=== PATIENT | female | born 1950 | race Caucasian/White ===

== ENCOUNTER 2020-04-30 09:06 | Outpatient (REF) | payer MEDICARE, OTHER, SELFPAY ==
[2020-04-30 10:51] LABS: Free T4 (Free Thyroxine) 1.36 ng/dL (0.71-1.85); Thyroid Stimulating Hormone 0.91 uIU/mL (0.32-4.0)
== END 2020-04-30 09:07 | disposition home or self-care (01) ==
LOC: HO.LAB 09:06
PROVIDERS: PCP Internal Medicine; Visit Provider Internal Medicine
DX: E03.9 Hypothyroidism, unspecified (principal); E04.1 Nontoxic single thyroid nodule
CPT/HCPCS: 84439; 84443

== ENCOUNTER 2020-08-22 08:51 | Outpatient (REF) | payer MEDICARE, OTHER, SELFPAY ==
[2020-08-22 09:53] LABS: MANUAL DIFF FLAG NO
[2020-08-22 10:01] LABS: Basophils Absolute Auto 0.1 X10*3/uL (0.0-0.2); Eosinophils Absolute Auto 0.2 X10*3/uL (0.0-0.4); Eosinophils Percent Auto 2.5 % (0-4); Hematocrit 42.3 % (37-47); Hemoglobin 14.1 g/dl (12.0-16.0); Imm Gran Abs Auto 0.02 X10*3/uL (0.00-0.03); Imm Gran Pct Auto 0.3 % (0.0-0.4); Lymphocytes Percent Auto 28.6 % (20-40); Mean Corpuscular HGB Conc 33.3 g/dl (31.0-35.0); Mean Corpuscular Hemoglobin 30.7 pg (27.0-33.0); Mean Corpuscular Volume 92.2 fL (80-98); Mean Platelet Volume 10.9 fL (9.4-12.3); Monocytes Absolute Auto 0.4 X10*3/uL (0.1-1.2); Monocytes Percent Auto 6.5 % (2-11); Neutrophils Absolute Auto 4.2 X10*3/uL (2.0-8.3); Neutrophils Percent Auto 61.1 % (45-73); Platelet Count 272 X10*3/uL (160-400); Red Blood Count 4.59 X10*6/uL (4.20-5.50); Red Cell Distribution Width 12.8 % (11.0-16.0); White Blood Count 6.8 X10*3/uL (4.8-10.8)
[2020-08-22 10:34] LABS: Alanine Aminotransferase 16 U/L (0-31); Albumin Level 4.5 g/dL (3.5-5.0); Alkaline Phosphatase 69 U/L (39-117); Anion Gap 13 (12-20); Aspartate Amino Transferase 17 U/L (5-31); Bilirubin Total 0.5 mg/dL (0.0-1.0); Blood Urea Nitrogen 18 mg/dL (9-16); Calcium 9.4 mg/dL (8.4-10.2); Carbon Dioxide 28 mmol/L (22-29); Chloride 107 mmol/L (96-108); Cholesterol 226 mg/dL; Estimated Glomerular Filt Rate 59; Glucose Fasting 116 mg/dL (60-99); HDL Cholesterol 60 mg/dL; LDL Cholesterol Calculated 141 mg/dl; Potassium 4.5 mmol/L (3.3-5.1); Sodium 143 mmol/L (135-145); Total Protein 7.3 g/dL (6.5-8.0); Triglycerides 127 mg/dL
[2020-08-22 10:46] LABS: Free T4 (Free Thyroxine) 1.06 ng/dL (0.71-1.85)
[2020-08-22 10:55] LABS: Estimated Average Glucose 114 mg/dL; Hemoglobin A1c % 5.6 %
== END 2020-08-22 08:52 | disposition home or self-care (01) ==
LOC: HO.LAB 08:51
PROVIDERS: PCP Internal Medicine; Visit Provider Internal Medicine
DX: R73.01 Impaired fasting glucose (principal); E03.9 Hypothyroidism, unspecified; E78.00 Pure hypercholesterolemia, unspecified; M48.061 Spinal stenosis, lumbar region without neurogenic claudication
CPT/HCPCS: 36415; 80053; 80061; 83036; 84439; 84443; 85025

== ENCOUNTER 2020-09-06 17:14 | Outpatient (REF) | payer MEDICARE, OTHER, SELFPAY ==
[2020-09-07 08:21] LABS: Lyme Abs Screen <0.90 index
== END 2020-09-06 17:15 | disposition home or self-care (01) ==
LOC: HO.LAB 17:14
PROVIDERS: PCP Internal Medicine; Visit Provider Internal Medicine
DX: R73.01 Impaired fasting glucose (principal); W57.XXXA Bitten or stung by nonvenomous insect and other nonvenomous arthropods, initial encounter
CPT/HCPCS: 36415; 86617; 86618

== ENCOUNTER 2021-02-27 07:52 | Outpatient (REF) | payer MEDICARE, OTHER, SELFPAY ==
--- NOTE | ~2021-02-27 | US_ITS ---
EXAMINATION: US THYROID CLINICAL INFORMATION: Nontoxic single thyroid nodule. COMPARISON: Ultrasound soft tissue head/neck thyroid dated 02/07/2020 and 12/22/2018. TECHNIQUE: Linear transducer grayscale and color Doppler examination with attention to the region of the thyroid. FINDINGS: SIZE: Measurements of the thyroid lobes and nodules are given in sagittal, anteroposterior and transverse dimensions respectively. Right Thyroid Lobe: 3.9 x 1.3 x 1.2 cm, volume 3.3 mL. Previously 4.3 x 1.4 x 1.3 cm, volume 4.1 mL. Parenchyma: The gland echotexture is heterogeneous. Thyroid vascularity is increased. Left Thyroid Lobe: 3.1 x 0.8 x 0.9 cm, volume 1.1 mL. Previously 3.9 x 1.1 x 1.1 cm, volume 2.5 mL. Parenchyma: The gland echotexture is heterogeneous. Thyroid vascularity is increased. Isthmus: 0.25 cm in maximum AP dimension. Previously 0.33 cm. Estimated total number of nodules greater than or equal to 1 cm: 1. International Accountant nodules are described as follows: 1. Location: Right superior/mid. Size: 1.3 x 0.8 x 1.2 cm, volume 0.61 mL. Previously: 1.1 x 0.6 x 0.9 cm, volume 0.31 mL. Nodule characteristics: Composition: Solid/almost completely solid (2). Echogenicity: Isoechoic (1). Shape: Not taller than wide (0). Margins: Smooth (0). Echogenic Foci: None (0). ACR TI-RADS total points: 3 ACR TI-RADS category: 3 Significant change in size (>/= 20% in 2 dimensions and minimal increase of 2 mm or 50% or greater increase in volume): Yes Change in features: No Change in ACR TI-RADS risk category: No NODES: No lymphadenopathy is seen in the tissue surrounding the thyroid gland. US/US thyroid IMPRESSION: Small heterogeneous hypervascular thyroid gland. Interval increase in the solitary right thyroid nodule. Fine-needle aspiration and ultrasound follow-up recommended.. ACR TI-RADS RECOMMENDATION REFERENCE: Ultrasound-guided fine-needle aspiration, followup ultrasound, no further follow up. * TR1 (0 point) and TR 2 (2 points): No FNA or follow up * TR3 (3 points): FNA if more than or equal to 2.5 cm in maximum dimension, followup ultrasound in 1, 3 and 5 years if 1.5 to 2.4 cm in maximum dimension. * TR4 (4-6 points): FNA if more than or equal to 1.5 cm in maximum dimension, followup ultrasound in 1, 2, 3 and 5 years if 1 to 1.4 cm in maximum dimension. * TR5 (more than or equal to 7 points): FNA if more than or equal to 1 cm in maximum dimension, followup ultrasound every year for 5 years if 0.5 to 0.9 cm in maximum dimension. * TR3, TR4 or TR5 nodules that are below the size threshold for follow up receive no follow up.
== END 2021-02-27 07:53 | disposition home or self-care (01) ==
LOC: HO.US 07:52
PROVIDERS: PCP Internal Medicine; Visit Provider Internal Medicine
DX: E04.1 Nontoxic single thyroid nodule (principal)
CPT/HCPCS: 76536

== ENCOUNTER 2021-04-29 08:17 | Outpatient (REF) | payer MEDICARE, OTHER, SELFPAY ==
[2021-04-29 08:38] LABS: MANUAL DIFF FLAG NO
[2021-04-29 08:59] LABS: Basophils Absolute Auto 0.1 X10*3/uL (0.0-0.2); Eosinophils Absolute Auto 0.2 X10*3/uL (0.0-0.4); Hematocrit 41.2 % (37.0-47.0); Hemoglobin 13.6 g/dl (12.0-16.0); Imm Gran Abs Auto 0.01 X10*3/uL (0.00-0.03); Imm Gran Pct Auto 0.2 % (0.0-0.4); Lymphocytes Absolute Auto 1.9 X10*3/uL (1.2-4.9); Lymphocytes Percent Auto 32.5 % (20-40); Mean Corpuscular Hemoglobin 29.7 pg (27.0-33.0); Mean Platelet Volume 10.9 fL (9.4-12.3); Monocytes Absolute Auto 0.5 X10*3/uL (0.1-1.2); Monocytes Percent Auto 8.1 % (2-11); Neutrophils Absolute Auto 3.2 x10*3/uL (2.0-8.3); Neutrophils Percent Auto 54.2 % (45-73); Platelet Count 246 X10*3/uL (160-400); Red Blood Count 4.58 X10*6/uL (4.20-5.50); Red Cell Distribution Width 12.6 % (11.0-16.0); White Blood Count 5.8 X10*3/uL (4.8-10.8)
[2021-04-29 09:11] LABS: Estimated Average Glucose 123 mg/dL; Hemoglobin A1c % 5.9 %
[2021-04-29 09:25] LABS: Alanine Aminotransferase 17 U/L (0-31); Albumin Level 4.3 g/dL (3.5-5.0); Alkaline Phosphatase 69 U/L (39-117); Anion Gap 12 (12-20); Aspartate Amino Transferase 18 U/L (5-31); Bilirubin Total 0.6 mg/dL (0.0-1.0); Blood Urea Nitrogen 11 mg/dL (9-16); Calcium 9.9 mg/dL (8.4-10.2); Carbon Dioxide 28 mmol/L (22-29); Chloride 106 mmol/L (96-108); Cholesterol 243 mg/dL; Estimated Glomerular Filt Rate 55; Glucose Fasting 123 mg/dL (60-99); HDL Cholesterol 61 mg/dL; LDL Cholesterol Calculated 149 mg/dl; Potassium 4.7 mmol/L (3.3-5.1); Sodium 141 mmol/L (135-145); Total Protein 6.8 g/dL (6.5-8.0); Triglycerides 165 mg/dL
[2021-04-29 09:28] LABS: Appearance Urine CLEAR; Color Urine STRAW; Glucose Urine UA NEG (NEG); Leukocyte Esterase Urine NEG (NEG); Nitrite Urine NEG (NEG); Specific Gravity - Urine <= 1.005 (1.005-1.025); Urine Blood NEG (NEG); Urine Ketones NEG (NEG); Urine Protein NEG (NEG-TRACE)
[2021-04-29 09:48] LABS: Free T4 (Free Thyroxine) 1.17 ng/dL (0.71-1.85); Thyroid Stimulating Hormone 0.63 uIU/mL (0.32-4.0)
== END 2021-04-29 08:18 | disposition home or self-care (01) ==
LOC: HO.LAB 08:17
PROVIDERS: PCP Internal Medicine; Visit Provider Internal Medicine
DX: E78.00 Pure hypercholesterolemia, unspecified (principal); R73.01 Impaired fasting glucose; E03.9 Hypothyroidism, unspecified; I10 Essential (primary) hypertension
CPT/HCPCS: 36415; 80053; 80061; 81003; 83036; 84439; 84443; 85025

== ENCOUNTER 2021-05-30 12:21 | Outpatient (REF) | payer MEDICARE, OTHER, SELFPAY ==
[2021-05-30 13:58] LABS: Vitamin D 25-OH Total 20.7 ng/mL (>30)
[2021-05-30 14:19] LABS: Folate 6.4 ng/mL (> or = 4.0); Vitamin B12 404 pg/mL (200-900)
[2021-06-04 14:52] LABS: Vitamin B1 10 nmol/L (8-30)
[2021-06-05 00:20] LABS: Vitamin A 72 mcg/dL (38-98)
== END 2021-05-30 12:22 | disposition home or self-care (01) ==
LOC: HO.LAB 12:21
PROVIDERS: PCP Internal Medicine; Visit Provider Internal Medicine
DX: E55.9 Vitamin D deficiency, unspecified (principal); E66.9 Obesity, unspecified; E53.8 Deficiency of other specified B group vitamins; H53.9 Unspecified visual disturbance
CPT/HCPCS: 36415; 82306; 82607; 82746; 84425; 84590

== ENCOUNTER 2021-07-30 08:47 | Outpatient (REF) | payer MEDICARE, OTHER, SELFPAY ==
[2021-07-30 10:25] LABS: Free T4 (Free Thyroxine) 1.46 ng/dL (0.71-1.85); Thyroid Stimulating Hormone 0.64 uIU/mL (0.32-4.0); Vitamin D 25-OH Total 36.7 ng/mL (>30)
== END 2021-07-30 08:48 | disposition home or self-care (01) ==
LOC: HO.LAB 08:47
PROVIDERS: PCP Internal Medicine; Visit Provider Internal Medicine
DX: E03.9 Hypothyroidism, unspecified (principal); E55.9 Vitamin D deficiency, unspecified
CPT/HCPCS: 36415; 82306; 84439; 84443

== ENCOUNTER 2021-10-22 10:14 | Outpatient (REF) | payer MEDICARE, OTHER, SELFPAY ==
[2021-10-22 12:25] LABS: Free T4 (Free Thyroxine) 1.34 ng/dL (0.71-1.85); Thyroid Stimulating Hormone 0.11 uIU/mL (0.32-4.0)
== END 2021-10-22 10:15 | disposition home or self-care (01) ==
LOC: HO.LAB 10:14
PROVIDERS: PCP Internal Medicine; Visit Provider Internal Medicine
DX: E03.9 Hypothyroidism, unspecified (principal); E04.1 Nontoxic single thyroid nodule; Z90.09 Acquired absence of other part of head and neck
CPT/HCPCS: 36415; 84439; 84443

== ENCOUNTER 2021-11-06 08:27 | Outpatient (REF) | payer MEDICARE, OTHER, SELFPAY ==
[2021-11-06 08:38] LABS: MANUAL DIFF FLAG NO
[2021-11-06 09:17] LABS: Basophils Absolute Auto 0.1 X10*3/uL (0.0-0.2); Basophils Percent Auto 0.8 % (0-2); Eosinophils Absolute Auto 0.2 X10*3/uL (0.0-0.4); Eosinophils Percent Auto 2.3 % (0-4); Hematocrit 43.4 % (37.0-47.0); Hemoglobin 14.2 g/dl (12.0-16.0); Imm Gran Abs Auto 0.03 X10*3/uL (0.00-0.03); Imm Gran Pct Auto 0.4 % (0.0-0.4); Lymphocytes Absolute Auto 2.1 X10*3/uL (1.2-4.9); Lymphocytes Percent Auto 28.7 % (20-40); Mean Corpuscular HGB Conc 32.7 g/dl (31.0-35.0); Mean Corpuscular Hemoglobin 29.6 pg (27.0-33.0); Mean Corpuscular Volume 90.6 fL (80.0-98.0); Mean Platelet Volume 11.2 fL (9.4-12.3); Monocytes Absolute Auto 0.6 X10*3/uL (0.1-1.2); Monocytes Percent Auto 8.4 % (2-11); Neutrophils Absolute Auto 4.3 x10*3/uL (2.0-8.3); Neutrophils Percent Auto 59.4 % (45-73); Platelet Count 261 X10*3/uL (160-400); Red Blood Count 4.79 X10*6/uL (4.20-5.50); Red Cell Distribution Width 12.5 % (11.0-16.0); White Blood Count 7.2 X10*3/uL (4.8-10.8)
[2021-11-06 09:24] LABS: Estimated Average Glucose 114 mg/dL; Hemoglobin A1c % 5.6 %
[2021-11-06 09:40] LABS: Alanine Aminotransferase 13 U/L (0-31); Albumin Level 4.6 g/dL (3.5-5.0); Alkaline Phosphatase 77 U/L (39-117); Anion Gap 11 (12-20); Aspartate Amino Transferase 16 U/L (5-31); Bilirubin Total 0.5 mg/dL (0.0-1.0); Blood Urea Nitrogen 20 mg/dL (9-16); Calcium 9.7 mg/dL (8.4-10.2); Carbon Dioxide 28 mmol/L (22-29); Chloride 106 mmol/L (96-108); Cholesterol 217 mg/dL; Estimated Glomerular Filt Rate 53; Glucose Fasting 119 mg/dL (60-99); HDL Cholesterol 54 mg/dL; LDL Cholesterol Calculated 135 mg/dl; Potassium 4.4 mmol/L (3.3-5.1); Sodium 141 mmol/L (135-145); Total Protein 7.1 g/dL (6.5-8.0); Triglycerides 140 mg/dL
[2021-11-06 10:03] LABS: Free T4 (Free Thyroxine) 1.49 ng/dL (0.71-1.85); Vitamin D 25-OH Total 51.8 ng/mL (>30)
[2021-11-06 10:21] LABS: Microalbumin Urine < 5.0 mg/L
[2021-11-06 10:24] LABS: Appearance Urine CLEAR; Color Urine YELLOW; Glucose Urine UA NEG (NEG); Leukocyte Esterase Urine NEG (NEG); Nitrite Urine NEG (NEG); Urine Blood NEG (NEG); Urine Ketones NEG (NEG); Urine Protein NEG (NEG-TRACE)
[2021-11-06 11:06] LABS: Folate > 20.0 ng/mL (> or = 4.0); Vitamin B12 518 pg/mL (200-900)
== END 2021-11-06 08:28 | disposition home or self-care (01) ==
LOC: HO.LAB 08:27
PROVIDERS: PCP Internal Medicine; Visit Provider Internal Medicine
DX: E11.9 Type 2 diabetes mellitus without complications (principal); E53.8 Deficiency of other specified B group vitamins; I10 Essential (primary) hypertension; E78.00 Pure hypercholesterolemia, unspecified; E55.9 Vitamin D deficiency, unspecified; E03.9 Hypothyroidism, unspecified
CPT/HCPCS: 36415; 80053; 80061; 81003; 82043; 82306; 82607; 82746; 83036; 84439; 85025

== ENCOUNTER 2022-01-13 08:14 | Outpatient (REF) | payer MEDICARE, SELFPAY ==
[2022-01-13 09:39] LABS: MANUAL DIFF FLAG NO
[2022-01-13 10:52] LABS: Basophils Absolute Auto 0.1 X10*3/uL (0.0-0.2); Basophils Percent Auto 0.9 % (0-2); Eosinophils Absolute Auto 0.2 X10*3/uL (0.0-0.4); Eosinophils Percent Auto 2.2 % (0-4); Hematocrit 43.6 % (37.0-47.0); Hemoglobin 14.5 g/dl (12.0-16.0); Imm Gran Abs Auto 0.02 X10*3/uL (0.00-0.03); Imm Gran Pct Auto 0.3 % (0.0-0.4); Lymphocytes Absolute Auto 1.9 X10*3/uL (1.2-4.9); Lymphocytes Percent Auto 24.9 % (20-40); Mean Corpuscular HGB Conc 33.3 g/dl (31.0-35.0); Mean Corpuscular Hemoglobin 29.7 pg (27.0-33.0); Mean Corpuscular Volume 89.3 fL (80.0-98.0); Mean Platelet Volume 11.3 fL (9.4-12.3); Monocytes Absolute Auto 0.6 X10*3/uL (0.1-1.2); Monocytes Percent Auto 7.3 % (2-11); Neutrophils Percent Auto 64.4 % (45-73); Platelet Count 256 X10*3/uL (160-400); Red Blood Count 4.88 X10*6/uL (4.20-5.50); Red Cell Distribution Width 12.4 % (11.0-16.0); White Blood Count 7.8 X10*3/uL (4.8-10.8)
[2022-01-13 11:07] LABS: Appearance Urine Clear; Color Urine Yellow; Glucose Urine UA Negative (Negative); Leukocyte Esterase Urine Negative (Negative); Nitrite Urine Negative (Negative); Specific Gravity - Urine 1.015 (1.005-1.025); Urine Blood Negative (Negative); Urine Ketones Negative (Negative); Urine Protein Negative (Neg-Trace)
[2022-01-13 11:25] LABS: Alanine Aminotransferase 14 U/L (0-31); Albumin Level 4.5 g/dL (3.5-5.0); Alkaline Phosphatase 71 U/L (39-117); Anion Gap 15 (12-20); Aspartate Amino Transferase 15 U/L (5-31); Bilirubin Total 0.5 mg/dL (0.0-1.0); Blood Urea Nitrogen 18 mg/dL (9-16); C Reactive Protein 0.35 mg/dL (< or = 0.50); Calcium 9.5 mg/dL (8.4-10.2); Carbon Dioxide 29 mmol/L (22-29); Chloride 107 mmol/L (96-108); Cholesterol 220 mg/dL; Estimated Glomerular Filt Rate 49; Glucose Random 111 mg/dL (60-115); HDL Cholesterol 63 mg/dL; LDL Cholesterol Calculated 128 mg/dl; Potassium 4.7 mmol/L (3.3-5.1); Sodium 146 mmol/L (135-145); Total Protein 7.3 g/dL (6.5-8.0); Triglycerides 148 mg/dL
[2022-01-13 11:36] LABS: Free T4 (Free Thyroxine) 1.39 ng/dL (0.71-1.85); Thyroid Stimulating Hormone 0.06 uIU/mL (0.32-4.0)
[2022-01-13 11:41] LABS: Folate 18.5 ng/mL (> or = 4.0); Vitamin B12 453 pg/mL (200-900)
[2022-01-13 11:46] LABS: Erythrocyte Sedimentation Rate 2 MM/HR (0-20)
== END 2022-01-13 08:15 | disposition home or self-care (01) ==
LOC: HO.LAB 08:14
PROVIDERS: PCP Internal Medicine; Visit Provider Internal Medicine
DX: R44.8 Other symptoms and signs involving general sensations and perceptions (principal); E03.9 Hypothyroidism, unspecified; I10 Essential (primary) hypertension; E78.00 Pure hypercholesterolemia, unspecified
CPT/HCPCS: 36415; 80053; 80061; 81003; 82306; 82607; 82746; 84439; 84443; 85025; 85652; 86140

== ENCOUNTER 2022-01-29 08:02 | Outpatient (REF) | payer MEDICARE, SELFPAY ==
--- NOTE | ~2022-01-29 | MR_ITS ---
EXAMINATION: MR BRAIN WITHOUT CONTRAST CLINICAL INFORMATION: Other symptoms and signs involving general sensation and perceptions. COMPARISON: Brain MRI 09/22/2011. TECHNIQUE: Multiplanar, multisequence imaging of the brain was performed without intravenous contrast. FINDINGS: There is no acute infarction, hemorrhage, mass, or extra-axial fluid collection. Mild scattered foci of T2/FLAIR hyperintensity are seen within the cerebral white matter, similar compared with 09/22/2011. The ventricles are normal in size without hydrocephalus. The major arterial flow voids are preserved at the skull base. The orbital contents appear normal. The extracranial structures are unremarkable. MR/MR head/brain wo con IMPRESSION: No acute intracranial abnormality. No mass. Nonspecific foci of T2/FLAIR hyperintensity are seen within the cerebral white matter, similar compared with 2011
== END 2022-01-29 08:03 | disposition home or self-care (01) ==
LOC: HO.MRI 08:02
PROVIDERS: Visit Provider Internal Medicine
DX: R44.8 Other symptoms and signs involving general sensations and perceptions (principal); R20.0 Anesthesia of skin; R20.2 Paresthesia of skin
CPT/HCPCS: 70551

== ENCOUNTER 2022-02-25 | Outpatient (REF) | payer MEDICARE, SELFPAY ==
[2022-02-25 09:21] LABS: MANUAL DIFF FLAG NO
[2022-02-25 10:18] LABS: Basophils Absolute Auto 0.1 X10*3/uL (0.0-0.2); Basophils Percent Auto 0.9 % (0-2); Eosinophils Absolute Auto 0.2 X10*3/uL (0.0-0.4); Eosinophils Percent Auto 3.1 % (0-4); Hematocrit 40.4 % (37.0-47.0); Hemoglobin 13.6 g/dl (12.0-16.0); Imm Gran Abs Auto 0.01 X10*3/uL (0.00-0.03); Imm Gran Pct Auto 0.1 % (0.0-0.4); Lymphocytes Absolute Auto 1.9 X10*3/uL (1.2-4.9); Lymphocytes Percent Auto 28.5 % (20-40); Mean Corpuscular HGB Conc 33.7 g/dl (31.0-35.0); Mean Corpuscular Hemoglobin 29.4 pg (27.0-33.0); Mean Corpuscular Volume 87.3 fL (80.0-98.0); Mean Platelet Volume 10.8 fL (9.4-12.3); Monocytes Absolute Auto 0.4 X10*3/uL (0.1-1.2); Monocytes Percent Auto 6.3 % (2-11); Neutrophils Absolute Auto 4.2 x10*3/uL (2.0-8.3); Neutrophils Percent Auto 61.1 % (45-73); Platelet Count 256 X10*3/uL (160-400); Red Blood Count 4.63 X10*6/uL (4.20-5.50); Red Cell Distribution Width 12.9 % (11.0-16.0); White Blood Count 6.8 X10*3/uL (4.8-10.8)
[2022-02-25 10:29] LABS: Appearance Urine Clear; Color Urine Yellow; Glucose Urine UA Negative (Negative); Leukocyte Esterase Urine Negative (Negative); Nitrite Urine Negative (Negative); PH 5.5 (5.0-9.0); Urine Blood Negative (Negative); Urine Ketones Negative (Negative); Urine Protein Negative (Neg-Trace)
[2022-02-25 10:55] LABS: Alanine Aminotransferase 15 U/L (0-31); Albumin Level 4.4 g/dL (3.5-5.0); Alkaline Phosphatase 71 U/L (39-117); Anion Gap 15 (12-20); Aspartate Amino Transferase 17 U/L (5-31); Bilirubin Total 0.5 mg/dL (0.0-1.0); Blood Urea Nitrogen 18 mg/dL (9-16); Calcium 9.5 mg/dL (8.4-10.2); Carbon Dioxide 25 mmol/L (22-29); Chloride 105 mmol/L (96-108); Cholesterol 223 mg/dL; Estimated Glomerular Filt Rate 54; Glucose Fasting 116 mg/dL (60-99); HDL Cholesterol 63 mg/dL; LDL Cholesterol Calculated 135 mg/dl; Potassium 4.3 mmol/L (3.3-5.1); Sodium 141 mmol/L (135-145); Total Protein 7.1 g/dL (6.5-8.0); Triglycerides 126 mg/dL
[2022-02-25 11:23] LABS: Thyroid Stimulating Hormone 0.04 uIU/mL (0.32-4.0); Vitamin D 25-OH Total 53.5 ng/mL (>30)
== END 2022-02-25 00:01 | disposition home or self-care (01) ==
LOC: HO.LAB
PROVIDERS: PCP Internal Medicine; Visit Provider Internal Medicine
DX: E03.9 Hypothyroidism, unspecified (principal); E04.1 Nontoxic single thyroid nodule; I10 Essential (primary) hypertension; E78.00 Pure hypercholesterolemia, unspecified; E55.9 Vitamin D deficiency, unspecified; Z90.09 Acquired absence of other part of head and neck
CPT/HCPCS: 36415; 80053; 80061; 81003; 82306; 84443; 85025

== ENCOUNTER 2022-06-25 07:24 | Outpatient (REF) | payer MEDICARE, SELFPAY ==
[2022-06-25 07:34] LABS: MANUAL DIFF FLAG NO
[2022-06-25 07:47] LABS: Basophils Absolute Auto 0.1 X10*3/uL (0.0-0.2); Basophils Percent Auto 0.8 % (0-2); Eosinophils Absolute Auto 0.2 X10*3/uL (0.0-0.4); Eosinophils Percent Auto 2.8 % (0-4); Hematocrit 41.8 % (37.0-47.0); Hemoglobin 13.8 g/dl (12.0-16.0); Imm Gran Abs Auto 0.02 X10*3/uL (0.00-0.03); Imm Gran Pct Auto 0.3 % (0.0-0.4); Lymphocytes Absolute Auto 2.7 X10*3/uL (1.2-4.9); Lymphocytes Percent Auto 36.1 % (20-40); Mean Corpuscular Hemoglobin 29.7 pg (27.0-33.0); Mean Corpuscular Volume 90.1 fL (80.0-98.0); Mean Platelet Volume 10.4 fL (9.4-12.3); Monocytes Absolute Auto 0.6 X10*3/uL (0.1-1.2); Neutrophils Absolute Auto 3.9 x10*3/uL (2.0-8.3); Platelet Count 247 X10*3/uL (160-400); Red Blood Count 4.64 X10*6/uL (4.20-5.50); White Blood Count 7.4 X10*3/uL (4.8-10.8)
[2022-06-25 07:57] LABS: Estimated Average Glucose 126 mg/dL
[2022-06-25 08:18] LABS: Alanine Aminotransferase 19 U/L (0-31); Albumin Level 4.1 g/dL (3.5-5.0); Alkaline Phosphatase 70 U/L (39-117); Anion Gap 13 (12-20); Aspartate Amino Transferase 16 U/L (5-31); Bilirubin Total 0.6 mg/dL (0.0-1.0); Blood Urea Nitrogen 16 mg/dL (9-16); Calcium 9.4 mg/dL (8.4-10.2); Carbon Dioxide 27 mmol/L (22-29); Chloride 107 mmol/L (96-108); Cholesterol 223 mg/dL; Estimated Glomerular Filt Rate 54; Glucose Fasting 126 mg/dL (60-99); HDL Cholesterol 51 mg/dL; LDL Cholesterol Calculated 152 mg/dl; Potassium 4.8 mmol/L (3.3-5.1); Sodium 142 mmol/L (135-145); Total Protein 6.5 g/dL (6.5-8.0); Triglycerides 102 mg/dL
[2022-06-25 08:25] LABS: Appearance Urine Clear; Color Urine Yellow; Glucose Urine UA Negative (Negative); Leukocyte Esterase Urine Negative (Negative); Nitrite Urine Negative (Negative); Specific Gravity - Urine 1.025 (1.005-1.025); Urine Blood Negative (Negative); Urine Ketones Negative (Negative); Urine Protein Negative (Neg-Trace)
[2022-06-25 08:35] LABS: Free T4 (Free Thyroxine) 1.24 ng/dL (0.71-1.85); Thyroid Stimulating Hormone 0.07 uIU/mL (0.32-4.0)
== END 2022-06-25 07:25 | disposition home or self-care (01) ==
LOC: HO.LAB 07:24
PROVIDERS: PCP Internal Medicine; Visit Provider Internal Medicine
DX: E03.9 Hypothyroidism, unspecified (principal); E78.00 Pure hypercholesterolemia, unspecified; R30.0 Dysuria; R73.01 Impaired fasting glucose; E55.9 Vitamin D deficiency, unspecified; I10 Essential (primary) hypertension
CPT/HCPCS: 36415; 80053; 80061; 81003; 82306; 83036; 84439; 84443; 85025

== ENCOUNTER 2022-09-25 09:11 | Outpatient (REF) | payer MEDICARE, SELFPAY ==
[2022-09-25 09:21] LABS: MANUAL DIFF FLAG NO
[2022-09-25 09:56] LABS: Basophils Absolute Auto 0.1 X10*3/uL (0.0-0.2); Basophils Percent Auto 0.9 % (0-2); Eosinophils Absolute Auto 0.2 X10*3/uL (0.0-0.4); Eosinophils Percent Auto 2.9 % (0-4); Hematocrit 42.5 % (37.0-47.0); Imm Gran Abs Auto 0.02 X10*3/uL (0.00-0.03); Imm Gran Pct Auto 0.3 % (0.0-0.4); Lymphocytes Absolute Auto 2.1 X10*3/uL (1.2-4.9); Lymphocytes Percent Auto 31.2 % (20-40); Mean Corpuscular HGB Conc 32.9 g/dl (31.0-35.0); Mean Corpuscular Hemoglobin 29.3 pg (27.0-33.0); Mean Corpuscular Volume 88.9 fL (80.0-98.0); Monocytes Absolute Auto 0.4 X10*3/uL (0.1-1.2); Monocytes Percent Auto 6.7 % (2-11); Neutrophils Absolute Auto 3.8 x10*3/uL (2.0-8.3); Platelet Count 255 X10*3/uL (160-400); Red Blood Count 4.78 X10*6/uL (4.20-5.50); Red Cell Distribution Width 12.4 % (11.0-16.0); White Blood Count 6.6 X10*3/uL (4.8-10.8)
[2022-09-25 10:05] LABS: Estimated Average Glucose 123 mg/dL; Hemoglobin A1c % 5.9 %
[2022-09-25 10:21] LABS: Appearance Urine Clear; Color Urine Yellow; Glucose Urine UA Negative (Negative); Leukocyte Esterase Urine Negative (Negative); Nitrite Urine Negative (Negative); PH 6.5 (5.0-9.0); Specific Gravity - Urine 1.015 (1.005-1.025); Urine Blood Negative (Negative); Urine Ketones Negative (Negative); Urine Protein Negative (Neg-Trace)
[2022-09-25 10:25] LABS: Alanine Aminotransferase 16 U/L (0-31); Albumin Level 4.3 g/dL (3.5-5.0); Alkaline Phosphatase 75 U/L (39-117); Anion Gap 13 (12-20); Aspartate Amino Transferase 17 U/L (5-31); Bilirubin Total 0.7 mg/dL (0.0-1.0); Blood Urea Nitrogen 14 mg/dL (9-16); Calcium 9.5 mg/dL (8.4-10.2); Carbon Dioxide 27 mmol/L (22-29); Chloride 105 mmol/L (96-108); Cholesterol 224 mg/dL; Estimated Glomerular Filt Rate 55; Glucose Fasting 129 mg/dL (60-99); HDL Cholesterol 57 mg/dL; LDL Cholesterol Calculated 148 mg/dl; Potassium 4.6 mmol/L (3.3-5.1); Sodium 140 mmol/L (135-145); Total Protein 6.6 g/dL (6.5-8.0); Triglycerides 97 mg/dL
[2022-09-25 10:29] LABS: Creatinine Urine 81.06 mg/dL; Microalbumin Urine < 5.0 mg/L
[2022-09-25 10:44] LABS: Thyroid Stimulating Hormone 0.04 uIU/mL (0.32-4.0); Vitamin D 25-OH Total 56.3 ng/mL (>30)
== END 2022-09-25 09:12 | disposition home or self-care (01) ==
LOC: HO.LAB 09:11
PROVIDERS: PCP Internal Medicine; Visit Provider Internal Medicine
DX: R30.0 Dysuria (principal); E03.9 Hypothyroidism, unspecified; E11.9 Type 2 diabetes mellitus without complications; I10 Essential (primary) hypertension; E55.9 Vitamin D deficiency, unspecified; E78.00 Pure hypercholesterolemia, unspecified
CPT/HCPCS: 36415; 80053; 80061; 81003; 82043; 82306; 83036; 84439; 84443; 85025

== ENCOUNTER 2023-01-06 07:07 | Outpatient (REF) | payer MEDICARE, SELFPAY ==
[2023-01-06 08:45] LABS: MANUAL DIFF FLAG NO
[2023-01-06 08:52] LABS: Basophils Absolute Auto 0.1 X10*3/uL (0.0-0.2); Eosinophils Absolute Auto 0.2 X10*3/uL (0.0-0.4); Eosinophils Percent Auto 2.6 % (0-4); Hematocrit 41.8 % (37.0-47.0); Hemoglobin 13.9 g/dl (12.0-16.0); Imm Gran Abs Auto 0.03 X10*3/uL (0.00-0.03); Imm Gran Pct Auto 0.4 % (0.0-0.4); Lymphocytes Percent Auto 27.1 % (20-40); Mean Corpuscular HGB Conc 33.3 g/dl (31.0-35.0); Mean Corpuscular Hemoglobin 29.4 pg (27.0-33.0); Mean Corpuscular Volume 88.4 fL (80.0-98.0); Mean Platelet Volume 10.6 fL (9.4-12.3); Monocytes Absolute Auto 0.6 X10*3/uL (0.1-1.2); Neutrophils Absolute Auto 4.4 x10*3/uL (2.0-8.3); Neutrophils Percent Auto 60.9 % (45-73); Platelet Count 260 X10*3/uL (160-400); Red Blood Count 4.73 X10*6/uL (4.20-5.50); Red Cell Distribution Width 12.8 % (11.0-16.0); White Blood Count 7.2 X10*3/uL (4.8-10.8)
[2023-01-06 09:01] LABS: Estimated Average Glucose 117 mg/dL; Hemoglobin A1c % 5.7 %
[2023-01-06 09:50] LABS: Alanine Aminotransferase 11 U/L (0-31); Albumin Level 4.2 g/dL (3.5-5.0); Alkaline Phosphatase 78 U/L (39-117); Anion Gap 12 (12-20); Aspartate Amino Transferase 14 U/L (5-31); Bilirubin Total 0.5 mg/dL (0.0-1.0); Blood Urea Nitrogen 17 mg/dL (9-16); Calcium 9.6 mg/dL (8.4-10.2); Carbon Dioxide 29 mmol/L (22-29); Chloride 106 mmol/L (96-108); Cholesterol 216 mg/dL; Estimated Glomerular Filt Rate 50; Glucose Fasting 136 mg/dL (60-99); HDL Cholesterol 53 mg/dL; LDL Cholesterol Calculated 135 mg/dl; Potassium 4.5 mmol/L (3.3-5.1); Sodium 142 mmol/L (135-145); Total Protein 7.1 g/dL (6.5-8.0); Triglycerides 142 mg/dL
[2023-01-06 10:07] LABS: Free T4 (Free Thyroxine) 1.32 ng/dL (0.71-1.85); Thyroid Stimulating Hormone 0.05 uIU/mL (0.32-4.0); Vitamin D 25-OH Total 55.3 ng/mL (>30)
[2023-01-06 10:44] LABS: Appearance Urine Clear; Color Urine Yellow; Glucose Urine UA Negative (Negative); Leukocyte Esterase Urine Negative (Negative); Nitrite Urine Negative (Negative); PH 5.5 (5.0-9.0); Specific Gravity - Urine 1.015 (1.005-1.025); Urine Blood Negative (Negative); Urine Ketones Negative (Negative); Urine Protein Negative (Neg-Trace)
== END 2023-01-06 07:08 | disposition home or self-care (01) ==
LOC: HO.LAB 07:07
PROVIDERS: PCP Internal Medicine; Visit Provider Internal Medicine
DX: E55.9 Vitamin D deficiency, unspecified (principal); R30.0 Dysuria; E03.9 Hypothyroidism, unspecified; E78.00 Pure hypercholesterolemia, unspecified; R73.01 Impaired fasting glucose; I10 Essential (primary) hypertension
CPT/HCPCS: 36415; 80053; 80061; 81003; 82306; 83036; 84439; 84443; 85025

== ENCOUNTER 2023-01-12 14:20 | Outpatient (AMB) | payer MEDICARE, SELFPAY ==
[2023-01-12 14:29] VITALS: BP 122/80; PULSE 97; O2SAT 99; BMI 25.6
--- NOTE | 2023-01-12 14:29 | A.OFFPC_ITS ---
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 Accompanied by: Self / Same As Patient Allergies adhesive tape [ADHESIVE TAPE] Allergy (Severe, Verified 01/12/23 15:21) PEELS SKIN OFF acetaminophen [From DARVOCET-N 100] Allergy (Intermediate, Verified 01/12/23 15:21) VOMITTING Darvocet A500 Allergy (Unknown, Verified 01/12/23 15:21) vomiting oxycodone [Percocet] Allergy (Unknown, Verified 01/12/23 15:21) Unknown amoxicillin [Augmentin] Adverse Reaction (Unknown, Verified 01/12/23 15:21) stomach upset clavulanic acid [Augmentin] Adverse Reaction (Unknown, Verified 01/12/23 15:21) stomach upset From DEMEROL Allergy (Intermediate, Uncoded 01/12/23 15:21) VOMITTING ENVIRONMENTAL Allergy (Unknown, Uncoded 01/12/23 15:21) RHINITIS VICRYL SUTURES Allergy (Unknown, Uncoded 01/12/23 15:21) ITCHING Medication List - Last Reconciled 01/12/23 by Hesham Pacheco MD azelastine 0.05% 1 drp ophthalmic (eye) BID PRN azelastine-fluticasone 137-50 mcg/spray (Dymista) 1 spray intranasal BID PRN 30 days celecoxib 200 mg PO DAILY cyclobenzaprine 10 mg PO TID PRN 30 days diclofenac sodium 1% 4 grams topical QID PRN 90 days gabapentin 100 mg PO TID 30 days lorazepam 0.5 mg PO BID PRN 30 days omeprazole 20 mg PO DAILY 90 days scopolamine base (Transderm-Scop) 1 patch transdermal Q3D PRN Synthroid (levothyroxine) 125 mcg PO DAILY 90 days NS Tobacco use date assessed: 01/12/23 Fall risk assessment: No Falls in past year Last assessed Fall Risk: 01/12/23 Dental Screening Dental Screen Date: 01/12/23 Did you have a dental visit in the last 12 months?: Yes Did you have a dental problem in the last 6 months where you did not have access to dental care?: No Was dental information given to patient?: Patient has dentist HPI hypothyroidism, hyperlipidemia, IFG HPI Details Patient comes in today for her follow up visit States that she feels okay She denies any headaches or dizziness Denies any chest pains, no SOB No nausea/vomiting, no abdominal pain No change in bowel habits noted Had her follow up labs done last week - to discuss her results Had her colonoscopy done in [place] last month after her Cologuard testing came back positive - colonoscopy was normal States that she tried to get into [facility] and get Dr. Reynolds' office to schedule her colonoscopy EL[facility] but was advised that it may take a c couple of months to get her scheduled and she decided to go down to [place] as she did not want to wait [facility] Medical History Allergic rhinitis Anxiety GERD (gastroesophageal reflux disease) Hypothyroidism Impaired fasting glucose Lumbar spinal stenosis Nontoxic uninodular goiter Overweight (BMI 25.0-29.9) Primary osteoarthritis of both knees Pure hypercholesterolemia Right thyroid nodule Surgical History (Updated 01/12/23 @ 15:31 by Hesham Pacheco MD) History of colonoscopy History of hand surgery History of lobectomy of thyroid (~04/01/21) History of surgery Hx of hand surgery Family History Other Family history non-contributory Social History Housing: House Alcohol intake: never Patient Tobacco Use Status: Former Tobacco user e-Cigarette/Vaping Use: Never Used Second Hand Smoke Exposure: Yes service: No Current occupational status: retired Cognitive needs: No Hearing needs: No Vision needs: Yes Questionnaire PHQ-9 Over the last 2 weeks, how often have you been bothered by any of the following problems? 1. Little interest or pleasure in doing things: not at all 2. Feeling down, depressed, or hopeless: not at all 3. Trouble falling or staying asleep, or sleeping too much: not at all 4. Feeling tired or having little energy: not at all 5. Poor appetite or overeating: not at all 6. Feeling bad about yourself - or that you are a failure or have let yourself or your family down: not at all 7. Trouble concentrating on things, such as reading the newspaper or watching television: not at all 8. Moving or speaking so slowly that other people could have noticed. Or the opposite - being so fidgety or restless that you have been moving around a lot more than usual: not at all 9. Thoughts that you would be better off or of hurting yourself in some way: not at all Total score: 0 Depression Screening Interpretation: Negative [id number] - PHQ-9 Billing: Yes Source: Developed by Drs. Kai Sy, Ariana Singh, Orlando Senior and colleagues, with an educational shelia from [employer]. Thrive Questionnaire Date Thrive assessed: 01/12/23 I am a: Patient What is your living situation today?: I have a steady place to live Within the past 12 months, did the food you bought not last and you didn't have the money to get more?: Never true Within the past 12 months, did you worry whether your food would run out before you got money to buy more?: Never true Do you have trouble paying for medicines?: No Do you have trouble getting transportation to medical appointments?: No Do you have trouble paying your heating and electricity bill?: No Do you have trouble taking care of your child, family member or friend?: No Do you have trouble with day-to-day activities such as bathing, preparing meals, shopping, managing finances, etc.?: No Are you currently unemployed and looking for a job?: No Are you interested in more education?: No Please select the resources that you would like help with: None Currently or been in a relationship where the following occur: no concerns reported AUDIT C Alcohol Use Questionnaire (AUDIT-C) 1. How often do you have a drink containing alcohol?: Never 3. How often do you have six or more drinks on one occasion?: Never Total Score: 0 Score Reviewed/Action Taken: Yes GINO-7 AMB Questionnaire GINO-7 Date GINO - 7 assessed: 01/12/23 Feeling nervous, anxious, or on edge: 0 = Not at all Not being able to stop or control worryin = Not at all Worrying too much about different things: 0 = Not at all Trouble relaxin = Not at all Being so restless that it is hard to sit still: 0 = Not at all Becoming easily annoyed or irritable: 0 = Not at all Feeling afraid as if something awful might happen: 0 = Not at all Total GINO-7 score (0-4 normal; 5-9 mild; 10-14 moderate; 15-21 severe): 0 Source: Developed by Drs. Kai Sy, Ariana Singh, Orlando Senior and colleagues, with an educational shelia from [employer]. Review of Systems Const Denies fatigue, Denies fever(s) and Denies headache(s) ENT Denies dysphagia, Denies dizziness, Denies otalgia, Denies headache(s), Denies neck pain, Denies odynophagia and Denies sore throat Card Denies chest pain, Denies palpitations and Denies dyspnea Resp Denies cough and Denies dyspnea GI Denies abdominal pain, Denies constipation, Denies dysphagia, Denies heartburn, Denies diarrhea, Denies nausea, Denies odynophagia and Denies vomiting Denies difficulty voiding, Denies nocturia and Denies dysuria Musc Reports arthralgias (both knees, on and off; (+) right shoulder pain/discomfort lately) and Denies neck pain Skin/Breast Denies rash Neuro Denies dizziness and Denies headache(s) Endo Denies fatigue and Denies palpitations Physical exam (Primary Care) Vital Signs: Last Vital Signs Pulse 97 01/12/23 14:29 BP 122/80 01/12/23 14:29 Pulse Ox 99 01/12/23 14:29 Oxygen Delivery Method Room Air 01/12/23 14:29 BMI result Body Mass Index 25.6 Tobacco/Smoking Status: Tobacco use Status Tobacco use date assessed 01/12/23 01/12/23 14:31 Patient Tobacco Use Status Former Tobacco user 01/12/23 14:31 e-Cigarette/Vaping Use Never Used 01/12/23 14:31 PHQ-9: PHQ-9 Score PHQ-9: Total score 0 01/12/23 15:36 Depression Screening Interpretation: Negative Thrive Assessment: Date of Thrive Assessment Date Thrive assessed 01/12/23 01/12/23 14:31 Currently or been in a relationship where the following occur: no concerns reported Const General: no acute distress and alert HENMT Ears: TM's normal bilaterally and EAC's normal Throat: Yes posterior oropharynx normal and Yes tonsils normal (no TP congestion) Neck Neck: Yes no lymphadenopathy and Yes supple Resp Auscultation: clear to auscultation bilaterally, no rales and no wheezes Cardio Rate: regular rate Rhythm: regular rhythm Heart sounds: no murmurs GI Palpation (GI): Soft to palpation and nontender Auscultation: normal bowel sounds Extrem General: Yes no clubbing, cyanosis or edema Results Reviewed Results Reviewed: Laboratory Tests 01/13/22 01/13/22 01/13/22 09:37 09:37 09:37 WBC Hgb Hct Plt Count ESR 2 Sodium Potassium Creatinine Estimated GFR Fasting Glucose Hemoglobin A1c % Calcium AST ALT C-Reactive Protein 0.35 Triglycerides Cholesterol LDL Cholesterol, Calc HDL Cholesterol Vitamin B12 453 25-OH Vitamin D Total TSH Free T4 Ur Specific [place] Urine Protein Urine Glucose (UA) Urine Blood Microalb/Creat Ratio 09/25/22 01/06/23 01/06/23 09:15 08:30 08:40 WBC 7.2 Hgb 13.9 Hct 41.8 Plt Count 260 ESR Sodium Potassium Creatinine Estimated GFR Fasting Glucose Hemoglobin A1c % Calcium AST ALT C-Reactive Protein Triglycerides Cholesterol LDL Cholesterol, Calc HDL Cholesterol Vitamin B12 25-OH Vitamin D Total TSH Free T4 Ur Specific [place] 1.015 Urine Protein Negative Urine Glucose (UA) Negative Urine Blood Negative Microalb/Creat Ratio TNP 01/06/23 01/06/23 08:40 08:40 WBC Hgb Hct Plt Count ESR Sodium 142 Potassium 4.5 Creatinine 1.07 Estimated GFR 50 Fasting Glucose 136 H Hemoglobin A1c % 5.7 Calcium 9.6 AST 14 ALT 11 C-Reactive Protein Triglycerides 142 Cholesterol 216 LDL Cholesterol, Calc 135 HDL Cholesterol 53 Vitamin B12 25-OH Vitamin D Total 55.3 TSH 0.05 L Free T4 1.32 Ur Specific [place] Urine Protein Urine Glucose (UA) Urine Blood Microalb/Creat Ratio Assessment and Plan Assessment & Plan (1) Pure hypercholesterolemia: Code(s): E78.00 - Pure hypercholesterolemia, unspecified Plan: Results of her labs done last week reviewed and discussed with patient - lipids remain elevated but have improved slightly from previous Reinforced low cholesterol diet; patient continues to decline offer to start her on Rx for her cholesterol Will recheck her labs and fasting lipids in 3 months for follow up (2) Nontoxic uninodular goiter: Comment: right thyroid Code(s): E04.1 - Nontoxic single thyroid nodule Plan: S/P right thyroid lobectomy and isthmusectomy under general anesthesia by Dr. Elda Mckee on 04/01/2021 Patient declined FNA Bx initially and wished to just proceed directly to surgical excision (with Dr. Mckee) after her repeat thyroid US done revealed an interval increase in size from the year before Free T4 was again normal on her recent labs; TSH remains suppressed, which is how her numbers are expected to be Continue Synthroid 125 mcg QD Will continue to monitor her TFTs regularly (3) Impaired fasting glucose: Code(s): R73.01 - Impaired fasting glucose Plan: HgbA1c was at 5.7% on her labs done last week; was at 5.9% a few months ago Reinforced low calorie diet/exercise as tolerated Will recheck this again in 3 months for follow up (4) GERD (gastroesophageal reflux disease): Code(s): K21.9 - Gastro-esophageal reflux disease without esophagitis Qualifiers: Esophagitis presence: without esophagitis Qualified Code(s): K21.9 - Gastro-esophageal reflux disease without esophagitis Plan: Dietary restrictions reinforced Continue Omeprazole 20 mg QD (5) Lumbar spinal stenosis: Code(s): M48.061 - Spinal stenosis, lumbar region without neurogenic claudication Qualifiers: Neurogenic claudication status: unspecified Qualified Code(s): M48.061 - Spinal stenosis, lumbar region without neurogenic claudication Plan: Lumbar spine MRI done a few years ago revealed (+) degenerative disc disease Reinforced activity and weight-lifting restrictions Patient has Gabapentin 100 mg TID for her back pain but states that she has been taking this PRN only (6) Primary osteoarthritis of both knees: Code(s): M17.0 - Bilateral primary osteoarthritis of knee Plan: X-rays of the knees done back in January 2020 revealed (+) medial and garcia llofemoral compartment degenerative changes with apical spurring in both knees Continue Celecoxib 200 mg QD PRN Will consider referral to orthopedics if her knee pain progress or worsen (7) Allergic rhinitis: Code(s): J30.9 - Allergic rhinitis, unspecified Qualifiers: Allergic rhinitis seasonality: unspecified Allergic rhinitis trigger: unspecified Qualified Code(s): J30.9 - Allergic rhinitis, unspecified Plan: Continue Azelastine-Fluticasone 137-50 mcg nasal spray 1 spray into each nostril BID PRN (8) Anxiety: Code(s): F41.9 - Anxiety disorder, unspecified Plan: Continue Lorazepam 0.5 mg 2 to 3 times a day PRN - states that she takes this only as needed Has declined referral to psychiatry as well as Rx for maintenance therapy - feels that she is doing well on Lorazepam PRN alone (9) Overweight (BMI 25.0-29.9): Code(s): E66.3 - Overweight Plan: Reinforced diet/exercise as tolerated/lose weight (10) Positive colorectal cancer screening using Cologuard test: Code(s): R19.5 - Other fecal abnormalities Plan: Colonoscopy done at [facility] last month came out negative/normal Plan Follow up in 3 months Orders: Orders [facility] [place]. Panel Fast 3 Months E78.00 - Pure hypercholesterolemia, unspecified Hemoglobin A1c 3 Months R73.01 - Impaired fasting glucose Lipid Panel 3 Months E78.00 - Pure hypercholesterolemia, unspecified Free T4 (Free Thyroxine) 3 Months E03.9 - Hypothyroidism, unspecified Thyroid Stimulating Hormone 3 Months E03.9 - Hypothyroidism, unspecified Vitamin D 25-OH Total 3 Months E55.9 - Vitamin D deficiency, unspecified Complete Blood Count Auto Diff 3 Months I10 - Essential (primary) hypertension UA CC w/rflx Micro + Cult 3 Months R30.0 - Dysuria Coding Level of Care Code Est Pt Level 4 (58365) Diagnoses Pure hypercholesterolemia E78.00 Nontoxic uninodular goiter E04.1 Impaired fasting glucose R73.01 GERD (gastroesophageal reflux disease) K21.9 Esophagitis presence: without esophagitis Lumbar spinal stenosis M48.061 Neurogenic claudication status: unspecified Primary osteoarthritis of both knees M17.0 Allergic rhinitis J30.9 Allergic rhinitis seasonality: unspecified Allergic rhinitis trigger: unspecified Anxiety F41.9 Overweight (BMI 25.0-29.9) E66.3 Positive colorectal cancer screening using Cologuard test R19.5
== END 2023-01-12 15:56 | disposition home or self-care (01) ==
PROVIDERS: Visit Provider Internal Medicine
DX: E78.00 Pure hypercholesterolemia, unspecified (principal); E04.1 Nontoxic single thyroid nodule; K21.9 Gastro-esophageal reflux disease without esophagitis; F41.9 Anxiety disorder, unspecified; R73.01 Impaired fasting glucose; M48.061 Spinal stenosis, lumbar region without neurogenic claudication; M17.0 Bilateral primary osteoarthritis of knee; J30.9 Allergic rhinitis, unspecified; E66.3 Overweight; R19.5 Other fecal abnormalities
CPT/HCPCS: 99214

== ENCOUNTER 2023-02-19 10:47 | Outpatient (REF) | payer MEDICARE, SELFPAY ==
[2023-02-19 11:58] LABS: Blood Urea Nitrogen 15 mg/dL (9-16); Estimated Glomerular Filt Rate > 60
== END 2023-02-19 10:48 | disposition home or self-care (01) ==
LOC: HO.LAB 10:47
PROVIDERS: PCP Internal Medicine; Visit Provider Internal Medicine
DX: R10.31 Right lower quadrant pain (principal); R10.32 Left lower quadrant pain
CPT/HCPCS: 36415; 82565; 84520

== ENCOUNTER 2023-03-04 13:21 | Outpatient (REF) | payer MEDICARE, SELFPAY ==
--- NOTE | ~2023-03-04 | CT_ITS ---
EXAMINATION: CT ABDOMEN AND PELVIS WITH CONTRAST CLINICAL INFORMATION: Right lower quadrant pain. COMPARISON: None available. TECHNIQUE: Multidetector volumetric images were obtained from the superior aspect of the liver through the pubic symphysis following administration 85 mL of Omnipaque 350 intravenous contrast. Sagittal and coronal reformatted images were obtained on the technologist's workstation. Oral contrast: Yes This CT examination was performed using dose optimization techniques as appropriate, variously including the following: *Automated exposure control *Adjustment of mA and/or kV according to patient size (this includes techniques or standardized protocols for targeted exams where dose is matched to indication/reason for exam; i.e. extremities or head) *Use of iterative reconstruction technique DLP: 1347 mGy-cm FINDINGS: LUNG BASES: The visualized lung bases are unremarkable. LIVER, GALLBLADDER, AND BILIARY TREE: The liver is normal in size, and shape. The liver is slightly low in attenuation suggestive of mild fatty infiltration. No focal hepatic lesion or biliary ductal dilatation is present. The gallbladder is unremarkable with no evidence of radiopaque gallstones, gallbladder wall thickening, or obvious pericholecystic inflammatory changes. PANCREAS: Unremarkable. SPLEEN: Unremarkable. ADRENAL GLANDS: Unremarkable. KIDNEYS AND URETERS: The kidneys are normal in size, shape, and attenuation. No hydronephrosis, hydroureter, or calculi seen. No perinephric stranding. BLADDER: Unremarkable. GASTROINTESTINAL TRACT: Diverticulosis of the colon. No evidence of diverticulitis. The small and large bowel are otherwise unremarkable. The appendix is not seen, no inflammatory changes in the right lower quadrant. ABDOMINAL WALL: No significant hernia is appreciated. LYMPH NODES: Normal. VASCULAR: Unremarkable. PELVIC VISCERA: Unremarkable. OSSEOUS STRUCTURES: Scoliosis and degenerative changes of the spine and hip joints. Question Schmorl's node versus mild compression fracture of the right superior endplate of the L2 vertebral body. CT/CT abdomen pelvis w IV con IMPRESSION: Diverticulosis. No evidence of diverticulitis. Fatty liver. Fleischner guidelines were followed.
[2023-03-04] MEDS: iohexoL 350 MG/ML 100 ML INFUS..BTL IV (13:58)
== END 2023-03-04 13:22 | disposition home or self-care (01) ==
LOC: HO.CT 13:21
PROVIDERS: PCP Internal Medicine; Visit Provider Internal Medicine
DX: R10.31 Right lower quadrant pain (principal); R10.32 Left lower quadrant pain
CPT/HCPCS: 74177; Q9967

== ENCOUNTER 2023-06-18 09:11 | Outpatient (REF) | payer MEDICARE, SELFPAY ==
[2023-06-18 09:25] LABS: MANUAL DIFF FLAG NO
[2023-06-18 09:36] LABS: Basophils Absolute Auto 0.1 X10*3/uL (0.0-0.2); Basophils Percent Auto 0.9 % (0-2); Eosinophils Absolute Auto 0.2 X10*3/uL (0.0-0.4); Eosinophils Percent Auto 2.5 % (0-4); Hematocrit 41.6 % (37.0-47.0); Imm Gran Abs Auto 0.02 X10*3/uL (0.00-0.03); Imm Gran Pct Auto 0.3 % (0.0-0.4); Lymphocytes Absolute Auto 2.5 X10*3/uL (1.2-4.9); Lymphocytes Percent Auto 32.4 % (20-40); Mean Corpuscular HGB Conc 33.7 g/dl (31.0-35.0); Mean Corpuscular Hemoglobin 30.4 pg (27.0-33.0); Mean Corpuscular Volume 90.4 fL (80.0-98.0); Mean Platelet Volume 10.9 fL (9.4-12.3); Monocytes Absolute Auto 0.6 X10*3/uL (0.1-1.2); Monocytes Percent Auto 7.6 % (2-11); Neutrophils Absolute Auto 4.3 x10*3/uL (2.0-8.3); Neutrophils Percent Auto 56.3 % (45-73); Platelet Count 268 X10*3/uL (160-400); Red Cell Distribution Width 12.9 % (11.0-16.0); White Blood Count 7.6 X10*3/uL (4.8-10.8)
[2023-06-18 09:39] LABS: Appearance Urine Clear; Color Urine Yellow; Glucose Urine UA Negative (Negative); Leukocyte Esterase Urine Negative (Negative); Nitrite Urine Negative (Negative); Specific Gravity - Urine 1.025 (1.005-1.025); Urine Blood Negative (Negative); Urine Ketones Negative (Negative); Urine Protein Negative (Neg-Trace)
[2023-06-18 09:43] LABS: Estimated Average Glucose 123 mg/dL; Hemoglobin A1c % 5.9 % (<6.0)
[2023-06-18 10:22] LABS: Alanine Aminotransferase 14 U/L (0-31); Albumin Level 4.2 g/dL (3.5-5.0); Alkaline Phosphatase 76 U/L (39-117); Anion Gap 14 (12-20); Aspartate Amino Transferase 14 U/L (5-31); Bilirubin Total 0.4 mg/dL (0.0-1.0); Blood Urea Nitrogen 16 mg/dL (9-16); Calcium 9.7 mg/dL (8.4-10.2); Carbon Dioxide 28 mmol/L (22-29); Chloride 107 mmol/L (96-108); Cholesterol 191 mg/dL (<200); Estimated Glomerular Filt Rate 47; Glucose Fasting 116 mg/dL (60-99); HDL Cholesterol 62 mg/dL (>40); LDL Cholesterol Calculated 103 mg/dL (<100); Potassium 4.2 mmol/L (3.3-5.1); Sodium 145 mmol/L (135-145); Total Protein 7.2 g/dL (6.5-8.0); Triglycerides 131 mg/dL (<150)
[2023-06-18 10:41] LABS: Free T4 (Free Thyroxine) 1.35 ng/dL (0.71-1.85); Thyroid Stimulating Hormone 0.04 uIU/mL (0.32-4.0); Vitamin D 25-OH Total 48.5 ng/mL (>30)
== END 2023-06-18 09:12 | disposition home or self-care (01) ==
LOC: HO.LAB 09:11
PROVIDERS: PCP Internal Medicine; Visit Provider Internal Medicine
DX: R30.0 Dysuria (principal); E03.9 Hypothyroidism, unspecified; R73.01 Impaired fasting glucose; E78.00 Pure hypercholesterolemia, unspecified; E55.9 Vitamin D deficiency, unspecified; I10 Essential (primary) hypertension
CPT/HCPCS: 36415; 80053; 80061; 81003; 82306; 83036; 84439; 84443; 85025

== ENCOUNTER 2023-06-23 14:09 | Outpatient (AMB) | payer MEDICARE, SELFPAY ==
[2023-06-23 14:15] VITALS: BP 126/82; PULSE 86; O2SAT 98; BMI 26.5
--- NOTE | 2023-06-23 14:15 | MHC.PC.OV ---
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 Required: No Accompanied by: Self / Same As Patient Allergies adhesive tape [ADHESIVE TAPE] Allergy (Severe, Verified 06/23/23 14:51) PEELS SKIN OFF acetaminophen [From DARVOCET-N 100] Allergy (Intermediate, Verified 06/23/23 14:51) VOMITTING Darvocet A500 Allergy (Unknown, Verified 06/23/23 14:51) vomiting oxycodone [Percocet] Allergy (Unknown, Verified 06/23/23 14:51) Unknown amoxicillin [Augmentin] Adverse Reaction (Unknown, Verified 06/23/23 14:51) stomach upset clavulanic acid [Augmentin] Adverse Reaction (Unknown, Verified 06/23/23 14:51) stomach upset From DEMEROL Allergy (Intermediate, Uncoded 06/23/23 14:51) VOMITTING ENVIRONMENTAL Allergy (Unknown, Uncoded 06/23/23 14:51) RHINITIS VICRYL SUTURES Allergy (Unknown, Uncoded 06/23/23 14:51) ITCHING Medication List - Last Reconciled 06/23/23 by Hesham Pacheco MD azelastine 0.05% 1 drp ophthalmic (eye) BID PRN azelastine-fluticasone 137-50 mcg/spray (Dymista) 1 spray intranasal BID PRN 30 days celecoxib 200 mg PO DAILY ciprofloxacin HCl 500 mg PO BID 7 days cyclobenzaprine 10 mg PO TID PRN 30 days cyclobenzaprine 10 mg PO TID PRN 30 days diclofenac sodium 1% 4 grams topical QID PRN 90 days fluconazole 150 mg PO ONCE 1 day gabapentin 100 mg PO TID 30 days levofloxacin 500 mg PO DAILY 7 days lorazepam 0.5 mg PO BID PRN 30 days omeprazole 20 mg PO DAILY 90 days scopolamine base (Transderm-Scop) 1 patch transdermal Q3D PRN Synthroid (levothyroxine) 125 mcg PO DAILY 90 days NS Tobacco use date assessed: 06/23/23 Fall risk assessment: No Falls in past year Last assessed Fall Risk: 06/23/23 Dental Screening Dental Screen Date: 06/23/23 Did you have a dental visit in the last 12 months?: Yes Did you have a dental problem in the last 6 months where you did not have access to dental care?: No Was dental information given to patient?: Patient has dentist HPI 3 month follow up HPI Details Patient comes in today for her follow up visit States that she feels okay She denies any headaches or dizziness Denies any chest pains, no SOB No nausea/vomiting, no abdominal pain No change in bowel habits noted Needs a few of her Rx refilled and sent to her mail-order pharmacy Had her follow up labs done last week - to discuss her results [facility] Medical History Allergic rhinitis GERD (gastroesophageal reflux disease) Nontoxic uninodular goiter Overweight (BMI 25.0-29.9) Anxiety Primary osteoarthritis of both knees Right thyroid nodule Lumbar spinal stenosis Impaired fasting glucose Hypothyroidism Pure hypercholesterolemia Surgical History History of lobectomy of thyroid (~04/01/21) History of surgery Hx of hand surgery History of colonoscopy History of hand surgery Family History Other Family history non-contributory Social History Housing: House Alcohol intake: never Patient Tobacco Use Status: Former Tobacco user e-Cigarette/Vaping Use: Never Used Second Hand Smoke Exposure: Yes service: No Current occupational status: retired Cognitive needs: No Hearing needs: No Vision needs: Yes Questionnaire PHQ-9 Over the last 2 weeks, how often have you been bothered by any of the following problems? 1. Little interest or pleasure in doing things: not at all 2. Feeling down, depressed, or hopeless: not at all 3. Trouble falling or staying asleep, or sleeping too much: not at all 4. Feeling tired or having little energy: not at all 5. Poor appetite or overeating: not at all 6. Feeling bad about yourself - or that you are a failure or have let yourself or your family down: not at all 7. Trouble concentrating on things, such as reading the newspaper or watching television: not at all 8. Moving or speaking so slowly that other people could have noticed. Or the opposite - being so fidgety or restless that you have been moving around a lot more than usual: not at all 9. Thoughts that you would be better off or of hurting yourself in some way: not at all Total score: 0 Depression Screening Interpretation: Negative Depression Screening Done: Yes [id number] - PHQ-9 Billing: Yes Source: Developed by Drs. Kai Sy, Ariana Singh, Orlando Senior and colleagues, with an educational shelia from [employer]. Thrive Questionnaire Date Thrive assessed: 06/23/23 I am a: Patient What is your living situation today?: I have a steady place to live Within the past 12 months, did the food you bought not last and you didn't have the money to get more?: Never true Within the past 12 months, did you worry whether your food would run out before you got money to buy more?: Never true Do you have trouble paying for medicines?: No Do you have trouble getting transportation to medical appointments?: No Do you have trouble paying your heating and electricity bill?: No Do you have trouble taking care of your child, family member or friend?: No Do you have trouble with day-to-day activities such as bathing, preparing meals, shopping, managing finances, etc.?: No Are you currently unemployed and looking for a job?: No Are you interested in more education?: No Please select the resources that you would like help with: None Currently or been in a relationship where the following occur: no concerns reported THRIVE Score: 0 AUDIT C Alcohol Use Questionnaire (AUDIT-C) 1. How often do you have a drink containing alcohol?: Never 3. How often do you have six or more drinks on one occasion?: Never Total Score: 0 Score Reviewed/Action Taken: Yes GINO-7 AMB Questionnaire GINO-7 Date GINO - 7 assessed: 06/23/23 Feeling nervous, anxious, or on edge: 0 = Not at all Not being able to stop or control worryin = Not at all Worrying too much about different things: 0 = Not at all Trouble relaxin = Not at all Being so restless that it is hard to sit still: 0 = Not at all Becoming easily annoyed or irritable: 0 = Not at all Feeling afraid as if something awful might happen: 0 = Not at all Total GINO-7 score (0-4 normal; 5-9 mild; 10-14 moderate; 15-21 severe): 0 Source: Developed by Drs. Kai Sy, Ariana Singh, Orlando Senior and colleagues, with an educational shelia from [employer]. Review of Systems Const Denies fatigue, Denies fever(s) and Denies headache(s) ENT Denies dysphagia, Denies dizziness, Denies otalgia, Denies headache(s), Denies neck pain, Denies odynophagia and Denies sore throat Card Denies chest pain, Denies palpitations and Denies dyspnea Resp Denies cough and Denies dyspnea GI Denies abdominal pain, Denies constipation, Denies dysphagia, Denies heartburn, Denies diarrhea, Denies nausea, Denies odynophagia and Denies vomiting Denies difficulty voiding, Denies nocturia and Denies dysuria Musc Reports back pain (over the lower back), Reports arthralgias (both knees, on and off; (+) right shoulder pain/discomfort lately) and Denies neck pain Skin/Breast Denies rash Neuro Denies dizziness and Denies headache(s) Endo Denies fatigue and Denies palpitations Physical exam (Primary Care) Vital Signs: Last Vital Signs Pulse 86 06/23/23 14:15 BP 126/82 06/23/23 14:15 Pulse Ox 98 06/23/23 14:15 Oxygen Delivery Method Room Air 06/23/23 14:15 BMI result Body Mass Index 26.5 Tobacco/Smoking Status: Tobacco use Status Tobacco use date assessed 06/23/23 06/23/23 14:17 Patient Tobacco Use Status Former Tobacco user 06/23/23 14:17 e-Cigarette/Vaping Use Never Used 06/23/23 14:17 PHQ-9: PHQ-9 Score PHQ-9: Total score 0 06/23/23 14:53 Depression Screening Interpretation: Negative Thrive Assessment: Date of Thrive Assessment Date Thrive assessed 06/23/23 06/23/23 14:17 Currently or been in a relationship where the following occur: no concerns reported Const General: no acute distress and alert HENMT Ears: TM's normal bilaterally and EAC's normal Throat: Yes posterior oropharynx normal and Yes tonsils normal (no TP congestion) Neck Neck: Yes no lymphadenopathy and Yes supple Resp Auscultation: clear to auscultation bilaterally, no rales and no wheezes Cardio Rate: regular rate Rhythm: regular rhythm Heart sounds: no murmurs GI Palpation (GI): Soft to palpation and nontender Auscultation: normal bowel sounds General: Yes no CVA tenderness Back/Spine/Pelvis Back: no CVA tenderness Thoracic/Lumbar Spine: lumbar spinal tenderness Skin Rashes: no rashes Extrem General: Yes no clubbing, cyanosis or edema Results Reviewed Results Reviewed: Laboratory Tests 06/18/23 06/18/23 06/18/23 09:10 09:10 09:10 WBC Hgb Hct Plt Count Sodium Potassium Creatinine Estimated GFR Fasting Glucose Hemoglobin A1c % Calcium AST ALT Triglycerides Cholesterol LDL Cholesterol, Calc HDL Cholesterol 25-OH Vitamin D Total TSH Free T4 Urine pH 6.0 Ur Specific [place] 1.025 Urine Protein Negative Urine Glucose (UA) Negative Urine Blood Negative Urine Nitrite Negative Ur Leukocyte Esterase Negative 06/18/23 06/18/23 06/18/23 09:20 09:20 09:20 WBC 7.6 Hgb 14.0 Hct 41.6 Plt Count 268 Sodium 145 Potassium 4.2 Creatinine 1.12 Estimated GFR 47 Fasting Glucose 116 H Hemoglobin A1c % 5.9 Calcium 9.7 AST 14 ALT 14 Triglycerides 131 Cholesterol 191 LDL Cholesterol, Calc 103 H HDL Cholesterol 62 25-OH Vitamin D Total 48.5 TSH 0.04 L Free T4 1.35 Urine pH Ur Specific Jackson Urine Protein Urine Glucose (UA) Urine Blood Urine Nitrite Ur Leukocyte Esterase Assessment and Plan Assessment & Plan (1) Pure hypercholesterolemia: Code(s): E78.00 - Pure hypercholesterolemia, unspecified Plan: Results of her labs done last week reviewed and discussed with patient - advised that her cholesterol levels have improved slightly from previous Reinforced low cholesterol diet; patient continues to decline offer to start her on Rx for her cholesterol Will recheck her labs and fasting lipids in 3 months for follow up (2) Nontoxic uninodular goiter: Comment: right thyroid Code(s): E04.1 - Nontoxic single thyroid nodule Plan: S/P right thyroid lobectomy and isthmusectomy under general anesthesia by Dr. Elda Mckee on 04/01/2021 Patient declined FNA Bx initially and wished to just proceed directly to surgical excision (with Dr. Mckee) after her repeat thyroid US done revealed an interval increase in size from the year before Free T4 was again normal on her recent labs; TSH remains suppressed, which is how her numbers are expected to be Continue Synthroid 125 mcg QD Will continue to monitor her TFTs regularly (3) Impaired fasting glucose: Code(s): R73.01 - Impaired fasting glucose Plan: HgbA1c was at 5.9% on her labs done last week; was at 5.7% a few months ago Reinforced low calorie diet/exercise as tolerated Will recheck this again in 3 months for follow up (4) GERD (gastroesophageal reflux disease): Code(s): K21.9 - Gastro-esophageal reflux disease without esophagitis Qualifiers: Esophagitis presence: without esophagitis Qualified Code(s): K21.9 - Gastro-esophageal reflux disease without esophagitis Plan: Dietary restrictions reinforced Continue Omeprazole 20 mg QD (5) Lumbar spinal stenosis: Code(s): M48.061 - Spinal stenosis, lumbar region without neurogenic claudication Qualifiers: Neurogenic claudication status: unspecified Qualified Code(s): M48.061 - Spinal stenosis, lumbar region without neurogenic claudication Plan: Lumbar spine MRI done a few years ago revealed (+) degenerative disc disease Reinforced activity and weight-lifting restrictions Patient has Gabapentin 100 mg TID for her back pain but states that she has been taking this PRN only (6) Primary osteoarthritis of both knees: Code(s): M17.0 - Bilateral primary osteoarthritis of knee Plan: X-rays of the knees done back in January 2020 revealed (+) medial and patellofemoral compartment degenerative changes with apical spurring in both knees Continue Celecoxib 200 mg QD PRN Will consider referral to orthopedics if her knee pain progress or worsen (7) Allergic rhinitis: Code(s): J30.9 - Allergic rhinitis, unspecified Qualifiers: Allergic rhinitis seasonality: unspecified Allergic rhinitis trigger: unspecified Qualified Code(s): J30.9 - Allergic rhinitis, unspecified Plan: Continue Azelastine-Fluticasone 137-50 mcg nasal spray 1 spray into each nostril BID PRN (8) Anxiety: Code(s): F41.9 - Anxiety disorder, unspecified Plan: Continue Lorazepam 0.5 mg 2 to 3 times a day PRN - states that she takes this only as needed Has declined referral to psychiatry as well as Rx for maintenance therapy - feels that she is doing well on Lorazepam PRN alone (9) Overweight (BMI 25.0-29.9): Code(s): E66.3 - Overweight Plan: Reinforced diet/exercise as tolerated/lose weight Plan Follow up in 3 months Orders: Orders Hemoglobin A1c 3 Months E11.9 - Type 2 diabetes mellitus without complications Thyroid Stimulating Hormone 3 Months E03.9 - Hypothyroidism, unspecified Complete Blood Count Auto Diff 3 Months D64.9 - Anemia, unspecified Comprehensive [place]. Panel Fast 3 Months E78.00 - Pure hypercholesterolemia, unspecified Lipid Panel 3 Months E78.00 - Pure hypercholesterolemia, unspecified Free T4 (Free Thyroxine) 3 Months E03.9 - Hypothyroidism, unspecified Microalbumin, Random (w Creat) 3 Months E11.9 - Type 2 diabetes mellitus without complications UA CC w/rflx Micro + Cult 3 Months R30.0 - Dysuria Vitamin D 25-OH Total 3 Months E55.9 - Vitamin D deficiency, unspecified Medications: Refilled Synthroid (levothyroxine) 125 mcg PO DAILY 90 days 90 tabs 3RF NS E03.9 - Hypothyroidism, unspecified celecoxib 200 mg PO DAILY 90 ea 1RF M17.0 - Bilateral primary osteoarthritis of knee omeprazole 20 mg PO DAILY 90 days 90 caps 3RF Coding Level of Care Code Est Pt Level 4 (69233) Diagnoses Pure hypercholesterolemia E78.00 Nontoxic uninodular goiter E04.1 Impaired fasting glucose R73.01 Gastroesophageal reflux disease without esophagitis K21.9 Esophagitis presence: without esophagitis Spinal stenosis of lumbar region, unspecified whether neurogenic claudication present M48.061 Neurogenic claudication status: unspecified Primary osteoarthritis of both knees M17.0 Allergic rhinitis, unspecified seasonality, unspecified trigger J30.9 Allergic rhinitis seasonality: unspecified Allergic rhinitis trigger: unspecified Anxiety F41.9 Overweight (BMI 25.0-29.9) E66.3
== END 2023-06-23 15:51 | disposition home or self-care (01) ==
PROVIDERS: PCP Internal Medicine; Visit Provider Internal Medicine
DX: E78.00 Pure hypercholesterolemia, unspecified (principal); E04.1 Nontoxic single thyroid nodule; R73.01 Impaired fasting glucose; K21.9 Gastro-esophageal reflux disease without esophagitis; M48.061 Spinal stenosis, lumbar region without neurogenic claudication; M17.0 Bilateral primary osteoarthritis of knee; J30.9 Allergic rhinitis, unspecified; F41.9 Anxiety disorder, unspecified; E66.3 Overweight
CPT/HCPCS: 99214

== ENCOUNTER 2023-09-13 07:44 | Outpatient (REF) | payer MEDICARE, SELFPAY ==
[2023-09-13 07:59] LABS: MANUAL DIFF FLAG NO
[2023-09-13 08:29] LABS: Basophils Absolute Auto 0.1 X10*3/uL (0.0-0.2); Eosinophils Absolute Auto 0.3 X10*3/uL (0.0-0.4); Eosinophils Percent Auto 3.8 % (0-4); Hematocrit 44.1 % (37.0-47.0); Hemoglobin 14.6 g/dl (12.0-16.0); Imm Gran Abs Auto 0.02 X10*3/uL (0.00-0.03); Imm Gran Pct Auto 0.3 % (0.0-0.4); Lymphocytes Absolute Auto 2.4 X10*3/uL (1.2-4.9); Lymphocytes Percent Auto 35.3 % (20-40); Mean Corpuscular HGB Conc 33.1 g/dl (31.0-35.0); Mean Corpuscular Hemoglobin 29.3 pg (27.0-33.0); Mean Corpuscular Volume 88.6 fL (80.0-98.0); Mean Platelet Volume 10.7 fL (9.4-12.3); Monocytes Absolute Auto 0.4 X10*3/uL (0.1-1.2); Monocytes Percent Auto 5.7 % (2-11); Neutrophils Absolute Auto 3.7 x10*3/uL (2.0-8.3); Neutrophils Percent Auto 53.9 % (45-73); Platelet Count 278 X10*3/uL (160-400); Red Blood Count 4.98 X10*6/uL (4.20-5.50); Red Cell Distribution Width 12.6 % (11.0-16.0); White Blood Count 6.8 X10*3/uL (4.8-10.8)
[2023-09-13 08:49] LABS: Estimated Average Glucose 128 mg/dL; Hemoglobin A1c % 6.1 % (<6.0)
[2023-09-13 09:02] LABS: Alanine Aminotransferase 16 U/L (0-31); Albumin Level 4.4 g/dL (3.5-5.0); Alkaline Phosphatase 80 U/L (39-117); Anion Gap 10 (12-20); Aspartate Amino Transferase 17 U/L (5-31); Bilirubin Total 0.4 mg/dL (0.0-1.0); Blood Urea Nitrogen 15 mg/dL (9-16); Calcium 9.8 mg/dL (8.4-10.2); Carbon Dioxide 30 mmol/L (22-29); Chloride 107 mmol/L (96-108); Cholesterol 223 mg/dL (<200); Estimated Glomerular Filt Rate > 60; Glucose Fasting 128 mg/dL (60-99); HDL Cholesterol 62 mg/dL (>40); LDL Cholesterol Calculated 135 mg/dL (<100); Potassium 4.5 mmol/L (3.3-5.1); Sodium 142 mmol/L (135-145); Total Protein 7.3 g/dL (6.5-8.0); Triglycerides 132 mg/dL (<150)
[2023-09-13 09:11] LABS: Free T4 (Free Thyroxine) 1.25 ng/dL (0.71-1.85); Thyroid Stimulating Hormone 0.19 uIU/mL (0.32-4.0); Vitamin D 25-OH Total 48.8 ng/mL (>30)
[2023-09-13 09:29] LABS: Appearance Urine Clear; Color Urine Yellow; Glucose Urine UA Negative (Negative); Leukocyte Esterase Urine Negative (Negative); Nitrite Urine Negative (Negative); PH 6.5 (5.0-9.0); Specific Gravity - Urine <= 1.005 (1.005-1.025); Urine Blood Negative (Negative); Urine Ketones Negative (Negative); Urine Protein Negative (Neg-Trace)
[2023-09-13 09:54] LABS: Creatinine Urine 28.45 mg/dL; Microalbumin Urine < 5.0 mg/L
== END 2023-09-13 07:45 | disposition home or self-care (01) ==
LOC: HO.LAB 07:44
PROVIDERS: PCP Internal Medicine; Visit Provider Internal Medicine
DX: E03.9 Hypothyroidism, unspecified (principal); E78.00 Pure hypercholesterolemia, unspecified; E11.9 Type 2 diabetes mellitus without complications; R30.0 Dysuria; E55.9 Vitamin D deficiency, unspecified; D64.9 Anemia, unspecified
CPT/HCPCS: 36415; 80053; 80061; 81003; 82306; 82570; 83036; 84439; 84443; 85025

== ENCOUNTER 2023-09-16 11:55 | Outpatient (AMB) | payer MEDICARE, SELFPAY ==
[2023-09-16 11:59] VITALS: BP 126/82; PULSE 95; O2SAT 98; BMI 26.5
--- NOTE | 2023-09-16 11:59 | MHC.PC.OV ---
Vital Signs 09/16/23 11:59 Height 5 ft 8 in Weight 174 lb BMI 26.5 BP 126/82 Blood Pressure Location Lt brachial Position Sitting Pulse 95 Pulse Source Pulse Oximeter Pulse Oximetry (%) 98 Oxygen Delivery Method Room Air Intake Visit Reasons: eye surgery 09/22 & 10/03 [facility] Utility Gelatin Maker Required: No Fuel Island Attendant: Not Required per policy Accompanied by: Self / Same As Patient Allergies adhesive tape [ADHESIVE TAPE] Allergy (Severe, Verified 09/16/23 12:48) PEELS SKIN OFF acetaminophen [From DARVOCET-N 100] Allergy (Intermediate, Verified 09/16/23 12:48) VOMITTING Darvocet A500 Allergy (Unknown, Verified 09/16/23 12:48) vomiting oxycodone [Percocet] Allergy (Unknown, Verified 09/16/23 12:48) Unknown amoxicillin [Augmentin] Adverse Reaction (Unknown, Verified 09/16/23 12:48) stomach upset clavulanic acid [Augmentin] Adverse Reaction (Unknown, Verified 09/16/23 12:48) stomach upset From DEMEROL Allergy (Intermediate, Uncoded 09/16/23 12:48) VOMITTING ENVIRONMENTAL Allergy (Unknown, Uncoded 09/16/23 12:48) RHINITIS VICRYL SUTURES Allergy (Unknown, Uncoded 09/16/23 12:48) ITCHING Medication List - Last Reconciled 09/16/23 by Hesham Pacheco MD azelastine 0.05% 1 drp ophthalmic (eye) BID PRN azelastine-fluticasone 137-50 mcg/spray (Dymista) 1 spray intranasal BID PRN 30 days celecoxib 200 mg PO DAILY cyclobenzaprine 10 mg PO TID PRN 30 days cyclobenzaprine 10 mg PO TID PRN 30 days diclofenac sodium 1% 4 grams topical QID PRN 90 days fluconazole 150 mg PO ONCE 1 day gabapentin 100 mg PO TID 30 days levofloxacin 500 mg PO DAILY 7 days lorazepam 0.5 mg PO BID PRN 30 days omeprazole 20 mg PO DAILY 90 days scopolamine base (Transderm-Scop) 1 patch transdermal Q3D PRN Synthroid (levothyroxine) 125 mcg PO DAILY 90 days NS Tobacco use date assessed: 06/23/23 Dental Screening Dental Screen Date: 06/23/23 PFSH Medical History Allergic rhinitis GERD (gastroesophageal reflux disease) Nontoxic uninodular goiter Overweight (BMI 25.0-29.9) Anxiety Primary osteoarthritis of both knees Right thyroid nodule Lumbar spinal stenosis Impaired fasting glucose Hypothyroidism Pure hypercholesterolemia Surgical History History of lobectomy of thyroid (~04/01/21) History of surgery Hx of hand surgery History of colonoscopy History of hand surgery Family History Other Family history non-contributory Social History Housing: House Alcohol intake: never Patient Tobacco Use Status: Former Tobacco user e-Cigarette/Vaping Use: Never Used Second Hand Smoke Exposure: Yes service: No Current occupational status: retired Cognitive needs: No Hearing needs: No Vision needs: Yes Questionnaire Thrive Questionnaire Date Thrive assessed: 06/23/23 GINO-7 AMB Questionnaire GINO-7 Date GINO - 7 assessed: 06/23/23 Source: Developed by Drs. Kai Sy, Ariana Singh, Orlando Senior and colleagues, with an educational shelia from [employer]. Physical exam (Primary Care) Vital Signs: Last Vital Signs Pulse 95 09/16/23 11:59 BP 126/82 09/16/23 11:59 Pulse Ox 98 09/16/23 11:59 Oxygen Delivery Method Room Air 09/16/23 11:59 BMI result Body Mass Index 26.5 Tobacco/Smoking Status: Tobacco use Status Tobacco use date assessed 09/16/23 09/16/23 12:02 Patient Tobacco Use Status Former Tobacco user 09/16/23 12:00 e-Cigarette/Vaping Use Never Used 09/16/23 12:00 Thrive Assessment: Date of Thrive Assessment Date Thrive assessed 06/23/23 09/16/23 12:00 Assessment and Plan Assessment & Plan Orders: Orders Comprehensive [place]. Panel Fast 12/23/23 E78.00 - Pure hypercholesterolemia, unspecified Thyroid Stimulating Hormone 12/23/23 E03.9 - Hypothyroidism, unspecified Microalbumin, Random (w Creat) 12/23/23 E11.9 - Type 2 diabetes mellitus without complications Complete Blood Count Auto Diff 12/23/23 D64.9 - Anemia, unspecified Lipid Panel 12/23/23 E78.00 - Pure hypercholesterolemia, unspecified Hemoglobin A1c 12/23/23 E11.9 - Type 2 diabetes mellitus without complications Free T4 (Free Thyroxine) 12/23/23 E03.9 - Hypothyroidism, unspecified UA CC w/rflx Micro + Cult 12/23/23 R30.0 - Dysuria Medications: Refilled azelastine-fluticasone 137-50 mcg/spray (Dymista) administer into each nostril 1 spray intranasal BID PRN 23 grams 5RF nasal congestion 30 days Coding
--- NOTE | 2023-09-16 11:59 | MHC.PC.OV ---
Vital Signs 09/16/23 11:59 Height 5 ft 8 in Weight 174 lb BMI 26.5 BP 126/82 Blood Pressure Location Lt brachial Position Sitting Pulse 95 Pulse Source Pulse Oximeter Pulse Oximetry (%) 98 Oxygen Delivery Method Room Air Intake Visit Reasons: eye surgery 09/22 & 10/03 [facility] Intake Note: Patient is here for a Pre-op for Bilateral Cataracts scheduled with Dr. 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 Allergies adhesive tape [ADHESIVE TAPE] Allergy (Severe, Verified 09/16/23 12:48) PEELS SKIN OFF acetaminophen [From DARVOCET-N 100] Allergy (Intermediate, Verified 09/16/23 12:48) VOMITTING Darvocet A500 Allergy (Unknown, Verified 09/16/23 12:48) vomiting oxycodone [Percocet] Allergy (Unknown, Verified 09/16/23 12:48) Unknown amoxicillin [Augmentin] Adverse Reaction (Unknown, Verified 09/16/23 12:48) stomach upset clavulanic acid [Augmentin] Adverse Reaction (Unknown, Verified 09/16/23 12:48) stomach upset From DEMEROL Allergy (Intermediate, Uncoded 09/16/23 12:48) VOMITTING ENVIRONMENTAL Allergy (Unknown, Uncoded 09/16/23 12:48) RHINITIS VICRYL SUTURES Allergy (Unknown, Uncoded 09/16/23 12:48) ITCHING Medication List - Last Reconciled 09/16/23 by Hesham Pacheco MD azelastine 0.05% 1 drp ophthalmic (eye) BID PRN azelastine-fluticasone 137-50 mcg/spray (Dymista) 1 spray intranasal BID PRN 30 days celecoxib 200 mg PO DAILY cyclobenzaprine 10 mg PO TID PRN 30 days cyclobenzaprine 10 mg PO TID PRN 30 days diclofenac sodium 1% 4 grams topical QID PRN 90 days fluconazole 150 mg PO ONCE 1 day gabapentin 100 mg PO TID 30 days levofloxacin 500 mg PO DAILY 7 days lorazepam 0.5 mg PO BID PRN 30 days omeprazole 20 mg PO DAILY 90 days scopolamine base (Transderm-Scop) 1 patch transdermal Q3D PRN Synthroid (levothyroxine) 125 mcg PO DAILY 90 days NS Tobacco use date assessed: 09/16/23 Fall risk assessment: No Falls in past year Last assessed Fall Risk: 09/16/23 Dental Screening Dental Screen Date: 06/23/23 HPI eye surgery 09/22 & 10/03 [facility] HPI Details Patient comes in today at the request of Dr. Amy Becerra of the [facility] [place] for a preoperative medical examination for clearance for surgery and also for her routine follow up visit She is scheduled for cataract extraction/phacoemulsification with IOL of the right eye under MAC on 09/23/2023, followed by the same procedure on the left eye a couple of weeks later on 10/04/2023 Patient states that she feels okay She denies any headaches or dizziness Denies any chest pains, no SOB No nausea/vomiting, no abdominal pain No change in bowel habits noted States that she needs her Dymista nasal spray Rx refilled Had her follow up labs done a few days ago - to discuss her results PENDING SALE TO [facility] Medical History Allergic rhinitis GERD (gastroesophageal reflux disease) Nontoxic uninodular goiter Overweight (BMI 25.0-29.9) Anxiety Primary osteoarthritis of both knees Right thyroid nodule Lumbar spinal stenosis Impaired fasting glucose Hypothyroidism Pure hypercholesterolemia Surgical History History of lobectomy of thyroid (~04/01/21) History of surgery Hx of hand surgery History of colonoscopy History of hand surgery Family History Other Family history non-contributory Social History Housing: House Alcohol intake: never Patient Tobacco Use Status: Former Tobacco user e-Cigarette/Vaping Use: Never Used Second Hand Smoke Exposure: Yes service: No Current occupational status: retired Cognitive needs: No Hearing needs: No Vision needs: Yes Questionnaire Thrive Questionnaire Date Thrive assessed: 06/23/23 GINO-7 AMB Questionnaire GINO-7 Date GINO - 7 assessed: 06/23/23 Source: Developed by Drs. Kai Sy, Ariana Singh, Orlando Senior and colleagues, with an educational shelia from [employer]. Review of Systems Const Denies chills, Denies fatigue, Denies fever(s) and Denies headache(s) ENT Denies dysphagia, Denies dizziness, Denies otalgia, Denies headache(s), Denies neck pain, Denies odynophagia and Denies sore throat Card Denies chest pain, Denies palpitations and Denies dyspnea Resp Denies cough and Denies dyspnea GI Denies abdominal pain, Denies constipation, Denies dysphagia, Denies heartburn, Denies diarrhea, Denies nausea, Denies odynophagia and Denies vomiting Denies difficulty voiding, Denies nocturia, Denies dysuria and Denies urinary urgency Musc Reports back pain (over the lower back, on and off), Reports arthralgias (over both knees, on and off) and Denies neck pain Skin/Breast Denies rash Neuro Denies dizziness and Denies headache(s) Endo Denies fatigue and Denies palpitations Physical exam (Primary Care) Vital Signs: Last Vital Signs Pulse 95 09/16/23 11:59 BP 126/82 09/16/23 11:59 Pulse Ox 98 09/16/23 11:59 Oxygen Delivery Method Room Air 09/16/23 11:59 BMI result Body Mass Index 26.5 Tobacco/Smoking Status: Tobacco use Status Tobacco use date assessed 09/16/23 09/16/23 12:02 Patient Tobacco Use Status Former Tobacco user 09/16/23 12:00 e-Cigarette/Vaping Use Never Used 09/16/23 12:00 Thrive Assessment: Date of Thrive Assessment Date Thrive assessed 06/23/23 09/16/23 12:00 Const General: no acute distress and alert HENMT Throat: Yes posterior oropharynx normal and Yes tonsils normal (no TP congestion) Neck Neck: Yes no lymphadenopathy and Yes supple Resp Auscultation: clear to auscultation bilaterally, no rales and no wheezes Cardio Rate: regular rate Rhythm: regular rhythm Heart sounds: no murmurs GI Palpation (GI): Soft to palpation and nontender Auscultation: normal bowel sounds General: Yes no CVA tenderness Back/Spine/Pelvis Back: no CVA tenderness Thoracic/Lumbar Spine: lumbar spinal tenderness Skin Rashes: no rashes Extrem General: Yes no clubbing, cyanosis or edema Results Reviewed Results Reviewed: Laboratory Tests 09/13/23 09/13/23 07:56 07:57 WBC 6.8 Hgb 14.6 Hct 44.1 Plt Count 278 Sodium 142 Potassium 4.5 Creatinine 0.82 Estimated GFR > 60 Fasting Glucose 128 H Hemoglobin A1c % 6.1 H Calcium 9.8 AST 17 ALT 16 Triglycerides 132 Cholesterol 223 H LDL Cholesterol, Calc 135 H HDL Cholesterol 62 25-OH Vitamin D Total 48.8 TSH 0.19 L Free T4 1.25 Ur Specific [place] <= 1.005 Urine Protein Negative Urine Glucose (UA) Negative Urine Blood Negative Urine Nitrite Negative Ur Leukocyte Esterase Negative Assessment and Plan Assessment & Plan (1) Preoperative examination: Code(s): Z01.818 - Encounter for other preprocedural examination Plan: Results of her labs done a few days ago reviewed and discussed with patient Patient presents with acceptable risks for her planned low cardiac risk procedure(s) and she currently appears to be medically optimized for her surgeries (2) Cataracts, bilateral: Code(s): H26.9 - Unspecified cataract Qualifiers: Cataract type: unspecified Qualified Code(s): H26.9 - Unspecified cataract Plan: She is scheduled for cataract extraction/phacoemulsification with IOL of the right eye under MAC on 09/23/2023, followed by the same procedure on the left eye a couple of weeks later on 10/04/[address] Amy Becerra of the [facility] (3) Pure hypercholesterolemia: Code(s): E78.00 - Pure hypercholesterolemia, unspecified Plan: Patient is advised that her cholesterol levels, especially her LDL cholesterol, have increased significantly from previous Reinforced low cholesterol diet; patient continues to decline offer to start her on cholesterol-lowering Rx Will recheck her labs and fasting lipids in 3 months for follow up (4) Nontoxic uninodular goiter: Comment: right thyroid Code(s): E04.1 - Nontoxic single thyroid nodule Plan: She underwent right thyroid lobectomy and isthmusectomy under general anesthesia by Dr. Elda Mckee back on 04/01/2021 Patient initially declined FNA Bx and wished to proceed directly to surgical excision (with Dr. Mckee) after her repeat thyroid US done revealed an interval increase in size from the year before Her Free T4 is again normal on her recent labs; TSH remains suppressed, which is as expected Continue Synthroid 125 mcg QD Will continue to monitor her TFTs regularly (5) Impaired fasting glucose: Code(s): R73.01 - Impaired fasting glucose Plan: HgbA1c was at 6.1% on her labs done a few days ago; was at 5.9% a few months ago - she is cautioned that her HgbA1c has been slowly rising over the past year Reinforced low calorie diet/exercise as tolerated Will recheck this again in 3 months for follow up (6) GERD (gastroesophageal reflux disease): Code(s): K21.9 - Gastro-esophageal reflux disease without esophagitis Qualifiers: Esophagitis presence: without esophagitis Qualified Code(s): K21.9 - Gastro-esophageal reflux disease without esophagitis Plan: Dietary restrictions reinforced Continue Omeprazole 20 mg QD (7) Lumbar spinal stenosis: Code(s): M48.061 - Spinal stenosis, lumbar region without neurogenic claudication Qualifiers: Neurogenic claudication status: unspecified Qualified Code(s): M48.061 - Spinal stenosis, lumbar region without neurogenic claudication Plan: Lumbar spine MRI done a few years ago revealed (+) degenerative disc disease Reinforced activity and weight-lifting restrictions Patient has Gabapentin 100 mg TID for her back pain but states that she has been taking this PRN only (8) Primary osteoarthritis of both knees: Code(s): M17.0 - Bilateral primary osteoarthritis of knee Plan: X-rays of the knees done back in January 2020 revealed (+) medial and patellofemoral compartment degenerative changes with apical spurring in both knees Continue Celecoxib 200 mg QD PRN Will consider referral to orthopedics if her knee pain progress or worsen (9) Allergic rhinitis: Code(s): J30.9 - Allergic rhinitis, unspecified Qualifiers: Allergic rhinitis trigger: unspecified Allergic rhinitis seasonality: unspecified Qualified Code(s): J30.9 - Allergic rhinitis, unspecified Plan: Continue Azelastine-Fluticasone 137-50 mcg nasal spray 1 spray into each nostril BID PRN - Rx refilled, per request (10) Anxiety: Code(s): F41.9 - Anxiety disorder, unspecified Plan: Continue Lorazepam 0.5 mg 2 to 3 times a day PRN - states that she takes this only as needed She has declined referral to psychiatry as well as Rx for maintenance therapy - feels that she is doing well on Lorazepam PRN alone (11) Overweight (BMI 25.0-29.9): Code(s): E66.3 - Overweight Plan: Reinforced diet/exercise as tolerated/lose weight Plan Patient is currently medically optimized and has no contraindications to undergo her planned cataract surgeries as scheduled over the next month with Dr. Becerra - she is MEDICALLY CLEARED for surgery Follow up as scheduled in December 2023 Orders: Orders Comprehensive [place]. Panel Fast 12/23/23 E78.00 - Pure hypercholesterolemia, unspecified Thyroid Stimulating Hormone 12/23/23 E03.9 - Hypothyroidism, unspecified Microalbumin, Random (w Creat) 12/23/23 E11.9 - Type 2 diabetes mellitus without complications Complete Blood Count Auto Diff 12/23/23 D64.9 - Anemia, unspecified Lipid Panel 12/23/23 E78.00 - Pure hypercholesterolemia, unspecified Hemoglobin A1c 12/23/23 E11.9 - Type 2 diabetes mellitus without complications Free T4 (Free Thyroxine) 12/23/23 E03.9 - Hypothyroidism, unspecified UA CC w/rflx Micro + Cult 12/23/23 R30.0 - Dysuria Medications: Refilled azelastine-fluticasone 137-50 mcg/spray (Dymista) administer into each nostril 1 spray intranasal BID 30 days PRN 23 grams 5RF nasal congestion Coding Level of Care Code Est Pt Level 4 (81098) Diagnoses Preoperative examination Z01.818 Cataract of both eyes, unspecified cataract type H26.9 Cataract type: unspecified Pure hypercholesterolemia E78.00 Nontoxic uninodular goiter E04.1 Impaired fasting glucose R73.01 Gastroesophageal reflux disease without esophagitis K21.9 Esophagitis presence: without esophagitis Spinal stenosis of lumbar region, unspecified whether neurogenic claudication present M48.061 Neurogenic claudication status: unspecified Primary osteoarthritis of both knees M17.0 Allergic rhinitis, unspecified seasonality, unspecified trigger J30.9 Allergic rhinitis trigger: unspecified Allergic rhinitis seasonality: unspecified Anxiety F41.9 Overweight (BMI 25.0-29.9) E66.3
== END 2023-09-16 12:39 | disposition home or self-care (01) ==
PROVIDERS: PCP Internal Medicine; Visit Provider Internal Medicine
DX: Z01.818 Encounter for other preprocedural examination (principal); H26.9 Unspecified cataract; E78.00 Pure hypercholesterolemia, unspecified; E04.1 Nontoxic single thyroid nodule; R73.01 Impaired fasting glucose; K21.9 Gastro-esophageal reflux disease without esophagitis; M48.061 Spinal stenosis, lumbar region without neurogenic claudication; M17.0 Bilateral primary osteoarthritis of knee; J30.9 Allergic rhinitis, unspecified; F41.9 Anxiety disorder, unspecified; E66.3 Overweight
CPT/HCPCS: 99214

== ENCOUNTER 2023-12-25 07:51 | Outpatient (REF) | payer MEDICARE, SELFPAY ==
[2023-12-25 08:24] LABS: MANUAL DIFF FLAG NO
[2023-12-25 09:08] LABS: Basophils Absolute Auto 0.1 X10*3/uL (0.0-0.2); Eosinophils Absolute Auto 0.3 X10*3/uL (0.0-0.4); Eosinophils Percent Auto 3.6 % (0-4); Hematocrit 41.5 % (37.0-47.0); Hemoglobin 13.8 g/dl (12.0-16.0); Imm Gran Abs Auto 0.03 X10*3/uL (0.00-0.03); Imm Gran Pct Auto 0.4 % (0.0-0.4); Lymphocytes Absolute Auto 2.2 X10*3/uL (1.2-4.9); Lymphocytes Percent Auto 30.4 % (20-40); Mean Corpuscular HGB Conc 33.3 g/dl (31.0-35.0); Mean Corpuscular Hemoglobin 29.4 pg (27.0-33.0); Mean Corpuscular Volume 88.3 fL (80.0-98.0); Mean Platelet Volume 11.1 fL (9.4-12.3); Monocytes Absolute Auto 0.5 X10*3/uL (0.1-1.2); Monocytes Percent Auto 6.8 % (2-11); Neutrophils Absolute Auto 4.1 x10*3/uL (2.0-8.3); Neutrophils Percent Auto 57.8 % (45-73); Platelet Count 246 X10*3/uL (160-400); Red Cell Distribution Width 12.7 % (11.0-16.0); White Blood Count 7.2 X10*3/uL (4.8-10.8)
[2023-12-25 09:10] LABS: Appearance Urine Clear; Color Urine Yellow; Glucose Urine UA Negative (Negative); Leukocyte Esterase Urine Negative (Negative); Nitrite Urine Negative (Negative); PH 5.5 (5.0-9.0); Urine Blood Negative (Negative); Urine Ketones Negative (Negative); Urine Protein Negative (Neg-Trace)
[2023-12-25 09:13] LABS: Estimated Average Glucose 126 mg/dL; Hemoglobin A1C 151.4222 umol/L
[2023-12-25 10:06] LABS: Alanine Aminotransferase 13 U/L (0-31); Albumin Level 4.2 g/dL (3.5-5.0); Alkaline Phosphatase 76 U/L (39-117); Anion Gap 12 (12-20); Aspartate Amino Transferase 14 U/L (5-31); Bilirubin Total 0.4 mg/dL (0.0-1.0); Blood Urea Nitrogen 17 mg/dL (9-16); Calcium 9.3 mg/dL (8.4-10.2); Carbon Dioxide 27 mmol/L (22-29); Chloride 106 mmol/L (96-108); Cholesterol 218 mg/dL (<200); Estimated Glomerular Filt Rate 54; Glucose Fasting 129 mg/dL (60-99); HDL Cholesterol 58 mg/dL (>40); LDL Cholesterol Calculated 135 mg/dL (<100); Potassium 3.9 mmol/L (3.3-5.1); Sodium 141 mmol/L (135-145); Total Protein 6.9 g/dL (6.5-8.0); Triglycerides 128 mg/dL (<150)
[2023-12-25 10:06] LABS: Creatinine Urine 134.62 mg/dL; Microalbum/Creatinine Ratio Ur 4.4 ug/mg cr (<30)
[2023-12-25 10:25] LABS: Free T4 (Free Thyroxine) 1.23 ng/dL (0.71-1.85); Thyroid Stimulating Hormone 0.19 uIU/mL (0.32-4.0)
== END 2023-12-25 07:52 | disposition home or self-care (01) ==
LOC: HO.LAB 07:51
PROVIDERS: PCP Internal Medicine; Visit Provider Internal Medicine
DX: E03.9 Hypothyroidism, unspecified (principal); E11.9 Type 2 diabetes mellitus without complications; D64.9 Anemia, unspecified; R30.0 Dysuria; E78.00 Pure hypercholesterolemia, unspecified
CPT/HCPCS: 36415; 80053; 80061; 81003; 82043; 82570; 83036; 84439; 84443; 85025

== ENCOUNTER 2023-12-31 14:33 | Outpatient (AMB) | payer MEDICARE, SELFPAY ==
[2023-12-31 15:21] VITALS: BP 124/82; PULSE 79; O2SAT 97; BMI 26.1
--- NOTE | 2023-12-31 15:21 | A.OFFPC_ITS ---
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: No Accompanied by: Self / Same As Patient Allergies adhesive tape [ADHESIVE TAPE] Allergy (Severe, Verified 12/31/23 16:02) PEELS SKIN OFF acetaminophen [From DARVOCET-N 100] Allergy (Intermediate, Verified 12/31/23 16:02) VOMITTING Darvocet A500 Allergy (Unknown, Verified 12/31/23 16:02) vomiting oxycodone [Percocet] Allergy (Unknown, Verified 12/31/23 16:02) Unknown amoxicillin [Augmentin] Adverse Reaction (Unknown, Verified 12/31/23 16:02) stomach upset clavulanic acid [Augmentin] Adverse Reaction (Unknown, Verified 12/31/23 16:02) stomach upset From DEMEROL Allergy (Intermediate, Uncoded 12/31/23 16:02) VOMITTING ENVIRONMENTAL Allergy (Unknown, Uncoded 12/31/23 16:02) RHINITIS VICRYL SUTURES Allergy (Unknown, Uncoded 12/31/23 16:02) ITCHING Medication List - Last Reconciled 12/31/23 by Hesham Pacheco MD azelastine 0.05% 1 drp ophthalmic (eye) BID PRN azelastine-fluticasone 137-50 mcg/spray (Dymista) 1 spray intranasal BID PRN 30 days celecoxib 200 mg PO DAILY cyclobenzaprine 10 mg PO TID PRN 30 days cyclobenzaprine 10 mg PO TID PRN 30 days diclofenac sodium 1% 4 grams topical QID PRN 90 days fluconazole 150 mg PO ONCE 1 day gabapentin 100 mg PO TID 30 days levofloxacin 500 mg PO DAILY 7 days lorazepam 0.5 mg PO BID PRN 30 days magnesium glycinate 360 mg PO .1 cap BID omeprazole 20 mg PO DAILY 90 days scopolamine base (Transderm-Scop) 1 patch transdermal Q3D PRN Synthroid (levothyroxine) 125 mcg PO DAILY 90 days NS Tobacco use date assessed: 09/16/23 Fall risk assessment: No Falls in past year Last assessed Fall Risk: 12/31/23 Dental Screening Dental Screen Date: 06/23/23 HPI 3 month follow up HPI Details Patient comes in today for her follow up visit States that she feels okay except for recurrent right hip pain and right-sided sciatica pain, which she states have been bothering her for a while now She denies any headaches or dizziness Denies any chest pains, no SOB No nausea/vomiting, no abdominal pain No change in bowel habits noted Needs a few of her Rx refilled Had her follow up labs done last week - to discuss her results [facility] Medical History Allergic rhinitis GERD (gastroesophageal reflux disease) Nontoxic uninodular goiter Overweight (BMI 25.0-29.9) Anxiety Primary osteoarthritis of both knees Right thyroid nodule Lumbar spinal stenosis Impaired fasting glucose Hypothyroidism Pure hypercholesterolemia Surgical History History of lobectomy of thyroid (~04/01/21) History of surgery Hx of hand surgery History of colonoscopy History of hand surgery Family History Other Family history non-contributory Social History Housing: House Alcohol intake: never Patient Tobacco Use Status: Former Tobacco user e-Cigarette/Vaping Use: Never Used Second Hand Smoke Exposure: Yes service: No Current occupational status: retired Cognitive needs: No Hearing needs: No Vision needs: Yes Questionnaire Thrive Questionnaire Date Thrive assessed: 06/23/23 GINO-7 AMB Questionnaire GINO-7 Date GINO - 7 assessed: 06/23/23 Source: Developed by Drs. Kai Sy, Ariana Singh, Orlando Senior and colleagues, with an educational shelia from [employer]. Review of Systems Const Denies chills, Denies fatigue, Denies fever(s) and Denies headache(s) ENT Denies dysphagia, Denies dizziness, Denies otalgia, Denies headache(s), Denies neck pain, Denies odynophagia and Denies sore throat Card Denies chest pain, Denies palpitations and Denies dyspnea Resp Denies cough and Denies dyspnea GI Denies abdominal pain, Denies constipation, Denies dysphagia, Denies heartburn, Denies diarrhea, Denies nausea, Denies odynophagia and Denies vomiting Denies difficulty voiding, Denies nocturia, Denies dysuria and Denies urinary urgency Musc Reports back pain (over the lower back, on and off; (+) right-sided sciatica pain lately), Reports arthralgias (over both knees, on and off; in the right hip lately) and Denies neck pain Skin/Breast Denies rash Neuro Denies dizziness and Denies headache(s) Endo Denies fatigue and Denies palpitations Physical exam (Primary Care) Vital Signs: Last Vital Signs Pulse 79 12/31/23 15:21 BP 124/82 12/31/23 15:21 Pulse Ox 97 12/31/23 15:21 Oxygen Delivery Method Room Air 12/31/23 15:21 BMI result Body Mass Index 26.1 Tobacco/Smoking Status: Tobacco use Status Tobacco use date assessed 09/16/23 12/31/23 15:22 Patient Tobacco Use Status Former Tobacco user 12/31/23 15:22 e-Cigarette/Vaping Use Never Used 12/31/23 15:22 Thrive Assessment: Date of Thrive Assessment Date Thrive assessed 06/23/23 12/31/23 15:22 Const General: no acute distress and alert HENMT Ears: TM's normal bilaterally and EAC's normal Throat: Yes posterior oropharynx normal and Yes tonsils normal (no TP congestion) Neck Neck: Yes no lymphadenopathy and Yes supple Resp Auscultation: clear to auscultation bilaterally, no rales and no wheezes Cardio Rate: regular rate Rhythm: regular rhythm Heart sounds: no murmurs GI Palpation (GI): Soft to palpation and nontender Auscultation: normal bowel sounds General: Yes no CVA tenderness Back/Spine/Pelvis Back: no CVA tenderness Thoracic/Lumbar Spine: paraspinal muscle tenderness on the right in the lower lumbar and lumbar spinal tenderness Skin Rashes: no rashes Extrem General: Yes no clubbing, cyanosis or edema Results Reviewed Results Reviewed: Laboratory Tests 12/25/23 12/25/23 08:20 08:22 WBC 7.2 Hgb 13.8 Hct 41.5 Plt Count 246 Sodium 141 Potassium 3.9 Creatinine 1.00 Estimated GFR 54 Fasting Glucose 129 H Hemoglobin A1c % 6.0 Calcium 9.3 AST 14 ALT 13 Triglycerides 128 Cholesterol 218 H LDL Cholesterol, Calc 135 H HDL Cholesterol 58 TSH 0.19 L Free T4 1.23 Urine pH 5.5 Ur Specific [place] 1.020 Urine Protein Negative Urine Glucose (UA) Negative Urine Blood Negative Urine Nitrite Negative Ur Leukocyte Esterase Negative Microalb/Creat Ratio 4.4 Assessment and Plan Assessment & Plan (1) Pure hypercholesterolemia: Code(s): E78.00 - Pure hypercholesterolemia, unspecified Plan: Results of her labs done last week reviewed and discussed with patient - advised that her cholesterol levels are still slightly elevated and are mostly unchanged from previous Reinforced low cholesterol diet; patient continues to decline offer to start her on Rx for her cholesterol Will recheck her labs and fasting lipids in 3 months for follow up (2) Nontoxic uninodular goiter: Comment: right thyroid Code(s): E04.1 - Nontoxic single thyroid nodule Plan: S/P right thyroid lobectomy and isthmusectomy under general anesthesia by Dr. Elda Mckee on 04/01/2021 Patient declined FNA Bx initially and wished to just proceed directly to surgical excision (with Dr. Mckee) after her repeat thyroid US done revealed an interval increase in size from the year before Free T4 was again normal on her recent labs; TSH remains suppressed, which is how her numbers are expected to be Continue Synthroid 125 mcg QD Will continue to monitor her TFTs regularly (3) Impaired fasting glucose: Code(s): R73.01 - Impaired fasting glucose Plan: HgbA1c was at 6.0% on her labs done last week; was at 5.9% a few months ago Reinforced low calorie diet/exercise as tolerated Will recheck this again in 3 months for follow up (4) GERD (gastroesophageal reflux disease): Code(s): K21.9 - Gastro-esophageal reflux disease without esophagitis Qualifiers: Esophagitis presence: without esophagitis Qualified Code(s): K21.9 - Gastro-esophageal reflux disease without esophagitis Plan: Dietary restrictions reinforced Continue Omeprazole 20 mg QD (5) Lumbar spinal stenosis: Code(s): M48.061 - Spinal stenosis, lumbar region without neurogenic claudication Qualifiers: Neurogenic claudication status: unspecified Qualified Code(s): M48.061 - Spinal stenosis, lumbar region without neurogenic claudication Plan: Lumbar spine MRI done a few years ago revealed (+) degenerative disc disease Reinforced activity and weight-lifting restrictions Patient has Gabapentin 100 mg TID for her back pain and states that she has been taking this PRN only Will send her for repeat lumbar spine x-rays for further evaluation (6) Right hip pain: Code(s): M25.551 - Pain in right hip Plan: Will also send her for right hip x-rays for further evaluation (7) Primary osteoarthritis of both knees: Code(s): M17.0 - Bilateral primary osteoarthritis of knee Plan: X-rays of the knees done back in January 2020 revealed (+) medial and patellofemoral compartment degenerative changes with apical spurring in both knees Continue Celecoxib 200 mg QD PRN Will consider referral to orthopedics if her knee pain progress or worsen (8) Allergic rhinitis: Code(s): J30.9 - Allergic rhinitis, unspecified Qualifiers: Allergic rhinitis trigger: unspecified Allergic rhinitis seasonality: unspecified Qualified Code(s): J30.9 - Allergic rhinitis, unspecified Plan: Continue Azelastine-Fluticasone 137-50 mcg nasal spray 1 spray into each nostril BID PRN (9) Anxiety: Code(s): F41.9 - Anxiety disorder, unspecified Plan: Continue Lorazepam 0.5 mg 2 to 3 times a day PRN - states that she takes this only as needed Has declined referral to psychiatry as well as Rx for maintenance therapy - feels that she is doing well on Lorazepam PRN alone (10) Overweight (BMI 25.0-29.9): Code(s): E66.3 - Overweight Plan: Reinforced diet/exercise as tolerated/lose weight Plan Follow up in 3 months Orders: Orders XR lumbar spine 2-3V Today M54.50 - Low back pain, unspecified Complete Blood Count Auto Diff 3 Months D64.9 - Anemia, unspecified Comprehensive [place]. Panel Fast 3 Months E78.00 - Pure hypercholesterolemia, unspecified Free T4 (Free Thyroxine) 3 Months E03.9 - Hypothyroidism, unspecified Thyroid Stimulating Hormone 3 Months E03.9 - Hypothyroidism, unspecified Hemoglobin A1c 3 Months E11.9 - Type 2 diabetes mellitus without complications XR hip RT min 2V Today M25.551 - Pain in right hip Lipid Panel 3 Months E78.00 - Pure hypercholesterolemia, unspecified UA CC w/rflx Micro + Cult 3 Months R30.0 - Dysuria Vitamin D 25-OH Total 3 Months E55.9 - Vitamin D deficiency, unspecified Medications: New fluconazole 150 mg PO Q3D 2 tabs 0RF 2 doses Refilled celecoxib 200 mg PO DAILY 90 ea 1RF M17.0 - Bilateral primary osteoarthritis of knee gabapentin 100 mg PO TID 90 caps 1RF 30 days omeprazole 20 mg PO DAILY 90 caps 3RF 90 days Coding Level of Care Code Est Pt Level 4 (87547) Complex EM visit Add On G2211 Diagnoses Pure hypercholesterolemia E78.00 Nontoxic uninodular goiter E04.1 Impaired fasting glucose R73.01 Gastroesophageal reflux disease without esophagitis K21.9 Esophagitis presence: without esophagitis Spinal stenosis of lumbar region, unspecified whether neurogenic claudication present M48.061 Neurogenic claudication status: unspecified Right hip pain M25.551 Primary osteoarthritis of both knees M17.0 Allergic rhinitis, unspecified seasonality, unspecified trigger J30.9 Allergic rhinitis trigger: unspecified Allergic rhinitis seasonality: unspecified Anxiety F41.9 Overweight (BMI 25.0-29.9) E66.3
== END 2023-12-31 16:18 | disposition home or self-care (01) ==
PROVIDERS: PCP Internal Medicine; Visit Provider Internal Medicine
DX: E78.00 Pure hypercholesterolemia, unspecified (principal); E04.1 Nontoxic single thyroid nodule; R73.01 Impaired fasting glucose; K21.9 Gastro-esophageal reflux disease without esophagitis; M48.061 Spinal stenosis, lumbar region without neurogenic claudication; M25.551 Pain in right hip; M17.0 Bilateral primary osteoarthritis of knee; J30.9 Allergic rhinitis, unspecified; F41.9 Anxiety disorder, unspecified; E66.3 Overweight
CPT/HCPCS: 99214; G2211

== ENCOUNTER 2024-02-08 11:33 | Outpatient (REF) | payer MEDICARE, SELFPAY ==
--- NOTE | ~2024-02-08 | XR_ITS ---
EXAMINATION: XR LUMBOSACRAL SPINE CLINICAL INFORMATION: Lower back pain. COMPARISON: CT abdomen/pelvis dated 03/04/2023. TECHNIQUE: AP, lateral, and coned-down views of the lumbosacral spine. FINDINGS: Mild levocurvature of the lumbar spine. The lumbar lordosis is maintained. No acute fracture or subluxation. Mild superior endplate compression deformity at L2, unchanged. No new loss of vertebral body height. Multilevel loss of intervertebral disc height with endplate osteophytes, most severe at L5-S1. Multilevel bilateral facet arthropathy. Findings are similar when compared to the prior examination. No concerning lytic or blastic osseous lesion. Atherosclerotic calcifications. XR/XR lumbar spine 2-3V IMPRESSION: Multilevel degenerative disc disease, severe at L5-S1 with multilevel bilateral facet arthropathy, similar when compared to the prior examination. Electronically signed by: Wojciech Evans MD 02/09/2024 08:55 PM EDT
--- NOTE | ~2024-02-08 | XR_ITS ---
EXAMINATION: XR HIP, RIGHT CLINICAL INFORMATION: Right hip pain. COMPARISON: CT abdomen/pelvis dated 03/04/2023. TECHNIQUE: Two views of the right hip. FINDINGS: Severe right hip joint space narrowing with subchondral sclerosis and subchondral cystic change. Prominent marginal osteophytes. Findings are similar when compared to the prior examination. No acute fracture or dislocation. Femoral neck buttressing. No concerning lytic or blastic osseous lesion. No evidence of avascular necrosis. XR/XR hip RT min 2V IMPRESSION: Severe right hip osteoarthritis with femoral neck buttressing, similar when compared to the prior examination. Electronically signed by: Wojciech Evans MD 02/09/2024 08:55 PM EDT
== END 2024-02-08 11:34 | disposition home or self-care (01) ==
LOC: HO.XRAY 11:33
PROVIDERS: PCP Internal Medicine; Visit Provider Internal Medicine
DX: M54.50 Low back pain, unspecified (principal); M25.551 Pain in right hip
CPT/HCPCS: 72100; 73502

== ENCOUNTER 2024-02-26 16:47 | Outpatient (REF) | payer MEDICARE, SELFPAY ==
--- NOTE | ~2024-02-26 | MR_ITS ---
EXAMINATION: MR LUMBAR SPINE WITHOUT AND WITH CONTRAST CLINICAL INFORMATION: Lower back pain radiating into right lower extremity. COMPARISON: Lumbar spine radiographs dated 02/08/2024. MRI lumbar spine dated October 24, 2015. TECHNIQUE: MRI of the lumbar spine was obtained using routine sequences with and without contrast. Intravenous contrast: Magnevist 7.5 mL FINDINGS: There is curvature of the lumbar spine, concave with the left side. The apex of the curvature is at L3. Lumbar spinal alignment is anatomic in the sagittal projection. Vertebral bodies demonstrate preserved stature. Bone marrow signal intensity is within normal limits. There is partial desiccation of every lumbar intervertebral disc. There is severe narrowing of the L2-3 intervertebral disc. There is moderate narrowing of the L5-S1 intervertebral disc. There is mild narrowing of the L1-2, L3-4 and L4-5 intervertebral discs. The visualized spinal cord, conus medullaris, and cauda equina nerve roots appear intrinsically normal. The conus medullaris terminates at L1-2. The paraspinal soft tissue is normal in appearance. Retroperitoneal structures are normal in appearance. The visualized aorta is normal in caliber. There is no spinal enhancement following the intravenous administration of contrast. Evaluation of the individual disc space levels is as follows: L1-2: There is a shallow circumferential disc bulge which flattens the ventral thecal sac. There is bilateral facet arthropathy. No spinal canal stenosis. No foraminal stenosis. L2-3: There is a circumferential disc herniation with a superimposed central disc protrusion. There is significant facet arthropathy bilaterally. There is ligamentous hypertrophy. The spinal canal is mildly narrowed. There is moderate narrowing of the neural foramina bilaterally, right greater than left. L3-4: There is a large circumferential disc herniation. There is facet arthropathy and ligamentous hypertrophy. Findings result in moderate to severe spinal canal stenosis and mild bilateral foraminal narrowing. L4-5: There is a large circumferential disc herniation. There is bilateral facet arthropathy and ligamentous hypertrophy. The subarticular recesses are severely narrowed, right greater than left. There is mild to moderate spinal canal stenosis. The right neural foramen is severely narrowed. Disc material abuts the exiting right L4 nerve root. L5-S1: There is a large circumferential disc herniation eccentric towards the right side. There is facet arthropathy and ligamentous hypertrophy. There is no significant spinal canal stenosis. There is severe right foraminal narrowing. Disc material contacts the traversing right L5 nerve root. MR/MR lumbar spine wo/w con IMPRESSION: Multilevel lumbar degenerative disc disease most severe at L2-3 and L5-S1. Lumbar spondylosis resulting in multilevel spinal canal and foraminal narrowing as described. Spinal canal stenosis is most severe at L3-4. At L4-5 and L5-S1 there is severe right-sided foraminal stenosis with disc contacting the traversing right L4 and L5 nerve roots, respectively. Electronically signed by: Calos Hatfield DO 03/06/2024 09:32 PM EDT
[2024-02-26] MEDS: gadobutroL 7.5 ML VIAL IVPUSH (17:29)
== END 2024-02-26 16:48 | disposition home or self-care (01) ==
LOC: HO.MRI 16:47
PROVIDERS: PCP Internal Medicine; Visit Provider Physician Assistant
DX: M79.604 Pain in right leg (principal)
CPT/HCPCS: 72158; A9585

== ENCOUNTER 2024-04-21 08:05 | Outpatient (REF) | payer MEDICARE, SELFPAY ==
[2024-04-21 09:04] LABS: MANUAL DIFF FLAG NO
[2024-04-21 09:47] LABS: Basophils Absolute Auto 0.1 X10*3/uL (0.0-0.2); Basophils Percent Auto 0.8 % (0-2); Eosinophils Absolute Auto 0.2 X10*3/uL (0.0-0.4); Eosinophils Percent Auto 3.5 % (0-4); Hematocrit 41.5 % (37.0-47.0); Hemoglobin 13.8 g/dl (12.0-16.0); Imm Gran Abs Auto 0.02 X10*3/uL (0.00-0.03); Imm Gran Pct Auto 0.3 % (0.0-0.4); Lymphocytes Absolute Auto 1.9 X10*3/uL (1.2-4.9); Lymphocytes Percent Auto 29.2 % (20-40); Mean Corpuscular HGB Conc 33.3 g/dl (31.0-35.0); Mean Corpuscular Hemoglobin 30.3 pg (27.0-33.0); Mean Platelet Volume 10.7 fL (9.4-12.3); Monocytes Absolute Auto 0.5 X10*3/uL (0.1-1.2); Monocytes Percent Auto 8.1 % (2-11); Neutrophils Absolute Auto 3.8 x10*3/uL (2.0-8.3); Neutrophils Percent Auto 58.1 % (45-73); Platelet Count 240 X10*3/uL (160-400); Red Blood Count 4.56 X10*6/uL (4.20-5.50); Red Cell Distribution Width 13.2 % (11.0-16.0); White Blood Count 6.5 X10*3/uL (4.8-10.8)
[2024-04-21 10:00] LABS: Appearance Urine Clear; Color Urine Yellow; Estimated Average Glucose 131 mg/dL; Glucose Urine UA Negative (Negative); Hemoglobin A1C 156.1276 umol/L; Hemoglobin A1c % 6.2 % (<6.0); Leukocyte Esterase Urine Negative (Negative); Nitrite Urine Negative (Negative); Total Hemoglobin (HGBA1C) 3553.4934 umol/L; Urine Blood Negative (Negative); Urine Ketones Negative (Negative); Urine Protein Negative (Neg-Trace)
[2024-04-21 10:17] LABS: Alanine Aminotransferase 18 U/L (0-31); Albumin Level 4.2 g/dL (3.5-5.0); Alkaline Phosphatase 69 U/L (39-117); Anion Gap 11 (12-20); Aspartate Amino Transferase 19 U/L (5-31); Bilirubin Total 0.4 mg/dL (0.0-1.0); Blood Urea Nitrogen 14 mg/dL (9-16); Carbon Dioxide 28 mmol/L (22-29); Chloride 108 mmol/L (96-108); Cholesterol 227 mg/dL (<200); Estimated Glomerular Filt Rate 50; Glucose Fasting 118 mg/dL (60-99); HDL Cholesterol 62 mg/dL (>40); LDL Cholesterol Calculated 137 mg/dL (<100); Potassium 4.2 mmol/L (3.3-5.1); Sodium 143 mmol/L (135-145); Triglycerides 140 mg/dL (<150)
[2024-04-21 10:33] LABS: Free T4 (Free Thyroxine) 1.35 ng/dL (0.71-1.85); Thyroid Stimulating Hormone 0.52 uIU/mL (0.32-4.0); Vitamin D 25-OH Total 48.6 ng/mL (>30)
== END 2024-04-21 08:06 | disposition home or self-care (01) ==
LOC: HO.LAB 08:05
PROVIDERS: PCP Internal Medicine; Visit Provider Internal Medicine
DX: D64.9 Anemia, unspecified (principal); E78.00 Pure hypercholesterolemia, unspecified; E03.9 Hypothyroidism, unspecified; E11.9 Type 2 diabetes mellitus without complications; R30.0 Dysuria; E55.9 Vitamin D deficiency, unspecified
CPT/HCPCS: 36415; 80053; 80061; 81003; 82306; 83036; 84439; 84443; 85025

== ENCOUNTER 2024-04-26 14:56 | Outpatient (AMB) | payer MEDICARE, SELFPAY ==
[2024-04-26 15:01] VITALS: BP 118/80; PULSE 63; O2SAT 97; BMI 26.5
--- NOTE | 2024-04-26 15:01 | A.OFFPC_ITS ---
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: No Accompanied by: Self / Same As Patient Allergies adhesive tape [ADHESIVE TAPE] Allergy (Severe, Verified 04/26/24 15:28) PEELS SKIN OFF acetaminophen [From DARVOCET-N 100] Allergy (Intermediate, Verified 04/26/24 15:28) VOMITTING Darvocet A500 Allergy (Unknown, Verified 04/26/24 15:28) vomiting oxycodone [Percocet] Allergy (Unknown, Verified 04/26/24 15:28) Unknown amoxicillin [Augmentin] Adverse Reaction (Unknown, Verified 04/26/24 15:28) stomach upset clavulanic acid [Augmentin] Adverse Reaction (Unknown, Verified 04/26/24 15:28) stomach upset From DEMEROL Allergy (Intermediate, Uncoded 04/26/24 15:28) VOMITTING ENVIRONMENTAL Allergy (Unknown, Uncoded 04/26/24 15:28) RHINITIS VICRYL SUTURES Allergy (Unknown, Uncoded 04/26/24 15:28) ITCHING Medication List - Last Reconciled 04/26/24 by Hesham Pacheco MD azelastine-fluticasone 137-50 mcg/spray (Dymista) 1 spray intranasal BID PRN 30 days celecoxib 200 mg PO DAILY cyclobenzaprine 10 mg PO TID PRN 30 days diclofenac sodium 1% 4 grams topical QID PRN 90 days gabapentin 100 mg PO TID 30 days lorazepam 0.5 mg PO BID PRN 30 days magnesium glycinate 360 mg PO .1 cap BID omeprazole 20 mg PO DAILY 90 days Synthroid (levothyroxine) 125 mcg PO DAILY 90 days NS Tobacco use date assessed: 04/26/24 Fall risk assessment: No Falls in past year Last assessed Fall Risk: 04/26/24 Dental Screening Dental Screen Date: 04/26/24 Did you have a dental visit in the last 12 months?: Yes Did you have a dental problem in the last 6 months where you did not have access to dental care?: No Was dental information given to patient?: Patient has dentist HPI HLD, IFG, Hypothyroidism, OA HPI Details Patient comes in today for her follow up visit States that she feels okay States that she still has some residual nerve pain as well as some tingling and numbness in her right leg and foot but was advised by Dr. Ascencio, who did her recent back surgery about a month ago (right L5-S1 minimally invasive decompression), that it will take some time for her condition to fully recover States that her previous right leg pain / right-sided sciatica pain, has resolved with her back surgery last month She is also currently taking Gabapentin 100 mg TID to help with her symptoms and she would like a refill this sent to mail order pharmacy She denies any headaches or dizziness Denies any chest pains, no SOB No nausea/vomiting, no abdominal pain No change in bowel habits noted She had her follow up labs done a few days ago - to discuss her results [facility] Medical History (Updated 04/26/24 @ 16:22 by Hesham Pacheco MD) Primary osteoarthritis of right hip Allergic rhinitis GERD (gastroesophageal reflux disease) Nontoxic uninodular goiter Overweight (BMI 25.0-29.9) Anxiety Primary osteoarthritis of both knees Right thyroid nodule Lumbar spinal stenosis Impaired fasting glucose Hypothyroidism Pure hypercholesterolemia Surgical History History of lobectomy of thyroid (~04/01/21) History of surgery Hx of hand surgery History of colonoscopy History of hand surgery Family History Other Family history non-contributory Social History Housing: House Alcohol intake: never Patient Tobacco Use Status: Former Tobacco user e-Cigarette/Vaping Use: Never Used Second Hand Smoke Exposure: Yes service: No Current occupational status: retired Cognitive needs: No Hearing needs: No Vision needs: Yes Questionnaire PHQ-9 Over the last 2 weeks, how often have you been bothered by any of the following problems? 1. Little interest or pleasure in doing things: not at all 2. Feeling down, depressed, or hopeless: not at all 3. Trouble falling or staying asleep, or sleeping too much: not at all 4. Feeling tired or having little energy: not at all 5. Poor appetite or overeating: not at all 6. Feeling bad about yourself - or that you are a failure or have let yourself or your family down: not at all 7. Trouble concentrating on things, such as reading the newspaper or watching television: not at all 8. Moving or speaking so slowly that other people could have noticed. Or the opposite - being so fidgety or restless that you have been moving around a lot more than usual: not at all 9. Thoughts that you would be better off or of hurting yourself in some way: not at all Total score: 0 Depression Screening Interpretation: Negative Depression Screening Done: Yes 89281 - PHQ-9 Billing: Yes Source: Developed by Drs. Kai Sy, Ariana Singh, Orlando Senior and colleagues, with an educational shelia from [employer]. Thrive Questionnaire Date Thrive assessed: 04/26/24 I am a: Patient What is your living situation today?: I have a steady place to live Within the past 12 months, did the food you bought not last and you didn't have the money to get more?: Never true Within the past 12 months, did you worry whether your food would run out before you got money to buy more?: Never true Do you have trouble paying for medicines?: No Do you have trouble getting transportation to medical appointments?: No Do you have trouble paying your heating and electricity bill?: No Do you have trouble taking care of your child, family member or friend?: No Do you have trouble with day-to-day activities such as bathing, preparing meals, shopping, managing finances, etc.?: No Are you currently unemployed and looking for a job?: No Are you interested in more education?: No Please select the resources that you would like help with: None Currently or been in a relationship where the following occur: No concerns reported THRIVE Score: 0 AUDIT C Alcohol Use Questionnaire (AUDIT-C) 1. How often do you have a drink containing alcohol?: Never 3. How often do you have six or more drinks on one occasion?: Never Total Score: 0 Score Reviewed/Action Taken: Yes GINO-7 AMB Questionnaire GINO-7 Date GINO - 7 assessed: 04/26/24 Feeling nervous, anxious, or on edge: 0 = Not at all Not being able to stop or control worryin = Not at all Worrying too much about different things: 0 = Not at all Trouble relaxin = Not at all Being so restless that it is hard to sit still: 0 = Not at all Becoming easily annoyed or irritable: 0 = Not at all Feeling afraid as if something awful might happen: 0 = Not at all Total GINO-7 score (0-4 normal; 5-9 mild; 10-14 moderate; 15-21 severe): 0 Source: Developed by Drs. Kai Sy, Ariana Singh, Orlando Senior and colleagues, with an educational shelia from [employer]. Review of Systems Const Denies chills, Denies fatigue, Denies fever(s) and Denies headache(s) ENT Denies dysphagia, Denies dizziness, Denies otalgia, Denies headache(s), Denies neck pain, Denies odynophagia and Denies sore throat Card Denies chest pain, Denies palpitations and Denies dyspnea Resp Denies chest congestion, Denies cough and Denies dyspnea GI Denies abdominal pain, Denies constipation, Denies dysphagia, Denies heartburn, Denies diarrhea, Denies nausea, Denies odynophagia and Denies vomiting Denies difficulty voiding, Denies nocturia, Denies dysuria and Denies urinary urgency Musc Reports back pain (over the lower back; previous R-sided sciatica / pain has improved), Reports arthralgias (over both knees, on and off; in the right hip), Denies neck pain and Reports numbness (in some toes of the right foot) Skin/Breast Denies rash Neuro Denies dizziness, Denies headache(s) and Reports numbness (in some toes of the right foot) Endo Denies fatigue and Denies palpitations Physical exam (Primary Care) Vital Signs: Last Vital Signs Pulse 63 04/26/24 15:01 BP 118/80 04/26/24 15:01 Pulse Ox 97 04/26/24 15:01 Oxygen Delivery Method Room Air 04/26/24 15:01 BMI result Body Mass Index 26.5 Tobacco/Smoking Status: Tobacco use Status Tobacco use date assessed 04/26/24 04/26/24 15:03 Patient Tobacco Use Status Former Tobacco user 04/26/24 15:03 e-Cigarette/Vaping Use Never Used 04/26/24 15:03 PHQ-9: PHQ-9 Score PHQ-9: Total score 0 04/26/24 16:17 Depression Screening Interpretation: Negative Thrive Assessment: Date of Thrive Assessment Date Thrive assessed 04/26/24 04/26/24 15:03 Currently or been in a relationship where the following occur: No concerns reported Const General: no acute distress and alert HENMT Ears: TM's normal bilaterally and EAC's normal Throat: Yes posterior oropharynx normal and Yes tonsils normal (no TP congestion) Neck Neck: Yes no lymphadenopathy and Yes supple Thyroid: Thyroid normal Resp Auscultation: clear to auscultation bilaterally, no rales and no wheezes Cardio Rate: regular rate Rhythm: regular rhythm Heart sounds: no murmurs GI Palpation (GI): Soft to palpation and nontender Auscultation: normal bowel sounds General: Yes no CVA tenderness Back/Spine/Pelvis Back: no CVA tenderness Thoracic/Lumbar Spine: straight leg raise negative bilaterally, paraspinal muscle tenderness on the right (mild) in the lower lumbar and lumbar spinal tenderness Skin Rashes: no rashes Extrem General: Yes no clubbing, cyanosis or edema Results Reviewed Results Reviewed: Laboratory Tests 04/21/24 09:02 WBC 6.5 Hgb 13.8 Hct 41.5 Plt Count 240 Sodium 143 Potassium 4.2 Creatinine 1.07 Estimated GFR 50 Fasting Glucose 118 H Hemoglobin A1c % 6.2 H Calcium 9.0 AST 19 ALT 18 Cholesterol 227 H LDL Cholesterol, Calc 137 H HDL Cholesterol 62 25-OH Vitamin D Total 48.6 TSH 0.52 Free T4 1.35 Ur Specific [place] 1.020 Urine Protein Negative Urine Glucose (UA) Negative Urine Blood Negative Urine Nitrite Negative Ur Leukocyte Esterase Negative Coding Level of Care Code Est Pt Level 4 (11162) Diagnoses Pure hypercholesterolemia E78.00 Nontoxic uninodular goiter E04.1 Impaired fasting glucose R73.01 Gastroesophageal reflux disease without esophagitis K21.9 Esophagitis presence: without esophagitis Spinal stenosis of lumbar region, unspecified whether neurogenic claudication present M48.061 Neurogenic claudication status: unspecified Primary osteoarthritis of right hip M16.11 Primary osteoarthritis of both knees M17.0 Allergic rhinitis, unspecified seasonality, unspecified trigger J30.9 Allergic rhinitis seasonality: unspecified Allergic rhinitis trigger: unspecified Anxiety F41.9 Overweight (BMI 25.0-29.9) E66.3 Additional Codes PHQ-9 - 18141 - PHQ-9 Billing: Yes ([id number]) Assessment & Plan Assessment & Plan (1) Pure hypercholesterolemia: Code(s): E78.00 - Pure hypercholesterolemia, unspecified Category: Medical Plan: Results of her labs done a few days ago reviewed and discussed with patient - advised that her cholesterol levels are still slightly elevated and are mostly unchanged from previous Reinforced low cholesterol diet; patient continues to decline offer to start her on Rx for her cholesterol Will recheck her labs and fasting lipids in 4 months for follow up (2) Nontoxic uninodular goiter: Comment: right thyroid Code(s): E04.1 - Nontoxic single thyroid nodule Category: Medical Plan: S/P right thyroid lobectomy and isthmusectomy under general anesthesia by Dr. Elda Mckee on 04/01/2021 Patient declined FNA Bx initially and wished to just proceed directly to surgical excision (with Dr. Mckee) after her repeat thyroid US done revealed an interval increase in size from the year before Free T4 was again normal on her recent labs; TSH was also normal Continue Synthroid 125 mcg QD Will continue to monitor her TFTs regularly (3) Impaired fasting glucose: Code(s): R73.01 - Impaired fasting glucose Category: Medical Plan: HgbA1c was at 6.2% on her labs done a few days ago; was previously at 6.0% a few months ago Reinforced low calorie/low carb diet; exercise as tolerated - states that she has not been able to do this lately due to her recent back surgery Will recheck these again in 4 months for follow up (4) GERD (gastroesophageal reflux disease): Code(s): K21.9 - Gastro-esophageal reflux disease without esophagitis Category: Medical Qualifiers: Esophagitis presence: without esophagitis Qualified Code(s): K21.9 - Gastro-esophageal reflux disease without esophagitis Plan: Dietary restrictions reinforced Continue Omeprazole 20 mg QD (5) Lumbar spinal stenosis: Code(s): M48.061 - Spinal stenosis, lumbar region without neurogenic claudication Category: Medical Qualifiers: Neurogenic claudication status: unspecified Qualified Code(s): M48.061 - Spinal stenosis, lumbar region without neurogenic claudication Plan: Her lumbar spine MRI done last month on 02/26/2024 revealed (+) multilevel lumbar degenerative disc disease most severe at L2-3 and L5-S1. Lumbar spondylosis resulting in multilevel spinal canal and foraminal narrowing; spinal canal stenosis is most severe at L3-4. At L4-5 and L5-S1 there is severe right-sided foraminal stenosis with disc contacting the traversing right L4 and L5 nerve roots Patient was subsequently referred to Dr. Ascencio for neurosurgery consultation and she eventually underwent right L5-S1 minimally invasive decompression last month on 03/28/2024 at [facility] She reports (+) significant relief of her right-sided sciatica symptoms following her surgery but she is still experiencing some residual pain and numbness in her right leg/foot/toes Continue Gabapentin 100 mg TID Reinforced activity and weight-lifting restrictions Follow up with neurosurgery (Dr. Ascencio) as scheduled (6) Primary osteoarthritis of right hip: Code(s): M16.11 - Unilateral primary osteoarthritis, right hip Category: Medical Plan: X-rays of the right hip done in January 2024 revealed (+) severe right hip osteoarthritis with femoral neck buttressing, similar when compared to prior examination in February 2023 (CT) Patient states that she is going to wait until she completely recovers from her back surgery and if her right hip continues to bother her, she will then see orthopedics and decide on whether she wants to go forward with hip replacement surgery or not (7) Primary osteoarthritis of both knees: Code(s): M17.0 - Bilateral primary osteoarthritis of knee Category: Medical Plan: X-rays of the knees done back in January 2020 revealed (+) medial and patellofemoral compartment degenerative changes with apical spurring in both knees Continue Celecoxib 200 mg QD PRN Will consider referral to orthopedics if her knee pain progress or worsen (8) Allergic rhinitis: Code(s): J30.9 - Allergic rhinitis, unspecified Category: Medical Qualifiers: Allergic rhinitis seasonality: unspecified Allergic rhinitis trigger: unspecified Qualified Code(s): J30.9 - Allergic rhinitis, unspecified Plan: Continue Azelastine-Fluticasone 137-50 mcg nasal spray 1 spray into each nostril BID PRN (9) Anxiety: Code(s): F41.9 - Anxiety disorder, unspecified Category: Medical Plan: Continue Lorazepam 0.5 mg 2 to 3 times a day PRN - states that she takes this only as needed Has declined referral to psychiatry as well as Rx for maintenance therapy - feels that she is doing well on Lorazepam PRN (10) Overweight (BMI 25.0-29.9): Code(s): E66.3 - Overweight Category: Medical Plan: Reinforced diet/exercise as tolerated/lose weight Plan Follow up in 4 months Orders: Orders Complete Blood Count Auto Diff 4 Months D64.9 - Anemia, unspecified Comprehensive Leonard. Panel Fast 4 Months E78.00 - Pure hypercholesterolemia, unspecified Hemoglobin A1c 4 Months R73.01 - Impaired fasting glucose Lipid Panel 4 Months E78.00 - Pure hypercholesterolemia, unspecified Thyroid Stimulating Hormone 4 Months E03.9 - Hypothyroidism, unspecified Free T4 (Free Thyroxine) 4 Months E03.9 - Hypothyroidism, unspecified Vitamin D 25-OH Total 4 Months E55.9 - Vitamin D deficiency, unspecified UA CC w/rflx Micro + Cult 4 Months R30.0 - Dysuria Medications: Changed From gabapentin 100 mg PO TID 30 days 90 caps 1RF To gabapentin 100 mg PO TID 90 days 270 caps 1RF
--- OUTSIDE RECORDS SUMMARY | 2024-05-02 20:55 | XMS_ITS | Patient Health Record ---
Author Organization [facility] Address [address] [place] [address] Care Team Providers Care Otorhinolaryngologist Name Role Phone Po Raeann CORONA Primary Care Provider Kai Shepherd [phone] REASON FOR REFERRAL No Information SOCIAL HISTORY Sex Assigned At : Social History Observation Description Sex Assigned At Unknown PLAN OF TREATMENT No Information Insurance Providers Payer Name Payer Address Payer Phone Subscriber Number Group Number Insured Name Patient Relationship to Insured Coverage Start Date Coverage End Date [employer] [address] [place] [address] [id number] JACKELINE WILKS Self - patient is the insured
--- OUTSIDE RECORDS SUMMARY | 2024-05-02 20:55 | XMS_ITS ---
Author Organization [facility] Address [address] [place] [address] Care Team Providers Care Aircraft Powertrain Repairer Name Role Phone Po Raeann CORONA Primary Care Provider Kai Shepherd [phone] Encounters Encounter Location Date Provider Diagnosis [facility] [address] [place] [address] 12/03/2022 Kai [place] PLAN OF TREATMENT No Information
--- OUTSIDE RECORDS SUMMARY | 2024-05-02 20:55 | XMS_ITS ---
Author Name [facility] Organization Unknown History of Medication Use Medication Directions Dispensed Refills Start Date End Date Stat Vitamin D3 (CHOLECALCIFEROL) 50 MCG (1999 UT) tablet Take 1 tablet (2,000 Units total) by mouth daily. 12/17/2022 active celeCOXIB (CeleBREX) 200 MG capsule Take 1 capsule (200 mg total) by mouth daily as needed for mild pain. Do not start before April 04, 2021. 12/03/2022 active aspirin enteric coated (ECOTRIN LOW STRENGTH) 81 MG EC tablet Take 1 tablet (81 mg total) by mouth daily. 12/17/2022 active OMEprazole (PriLOSEC) 20 MG capsule Take 1 capsule (20 mg total) by mouth nightly as needed. Takes PRN 12/03/2022 active APPLE CIDER VINEGAR PO Take 1 capsule by mouth daily. 12/03/2022 active aspirin enteric coated (ECOTRIN LOW STRENGTH) 81 MG EC tablet Take 1 tablet (81 mg total) by mouth daily. 12/17/2022 active OMEprazole (PriLOSEC) 20 MG capsule Take 1 capsule (20 mg total) by mouth nightly as needed. Takes PRN 12/03/2022 active Azelastine-Fluticasone (Dymista) 137-50 MCG/ACT Suspension into each nostril 2 (two) times a day. 12/03/2022 active traMADol (ULTRAM) 50 MG tablet Take 1 tablet (50 mg total) by mouth 3 times daily (every 8 hours) as needed for moderate pain or severe pain. 12/03/2022 active diclofenac (VOLTAREN) 1 % gel Apply topically 4 (four) times a day. Use dosing card to measure dose. Apply to entire affect area. Do not start before April 04, 2021. 12/03/2022 active Levothyroxine Sodium (SYNTHROID PO) Take 112 mcg by mouth daily. BRAND NAME ONLY 12/03/2022 active Problems Problem Status Onset Date Problem Type Date of Resoluti on Source Thyroid nodule active 2021-03-11 ProblemAct [facility] Screen for colon cancer active [facility]
== END 2024-04-26 15:47 | disposition home or self-care (01) ==
PROVIDERS: PCP Internal Medicine; Visit Provider Internal Medicine
DX: E78.00 Pure hypercholesterolemia, unspecified (principal); E04.1 Nontoxic single thyroid nodule; R73.01 Impaired fasting glucose; K21.9 Gastro-esophageal reflux disease without esophagitis; M48.061 Spinal stenosis, lumbar region without neurogenic claudication; M16.11 Unilateral primary osteoarthritis, right hip; M17.0 Bilateral primary osteoarthritis of knee; J30.9 Allergic rhinitis, unspecified; F41.9 Anxiety disorder, unspecified; E66.3 Overweight

== ENCOUNTER → 2024-04-26 14:56 | Outpatient (BNVA) | payer MEDICARE, SELFPAY | PROVIDERS: PCP Internal Medicine; Visit Provider Internal Medicine | DX: E78.00 Pure hypercholesterolemia, unspecified (principal); E04.1 Nontoxic single thyroid nodule; R73.01 Impaired fasting glucose; K21.9 Gastro-esophageal reflux disease without esophagitis; M16.11 Unilateral primary osteoarthritis, right hip; M17.0 Bilateral primary osteoarthritis of knee; J30.9 Allergic rhinitis, unspecified; F41.9 Anxiety disorder, unspecified; E66.3 Overweight | CPT/HCPCS: 96127; 99212 ==

== ENCOUNTER 2024-08-30 08:13 | Outpatient (REF) | payer MEDICARE, SELFPAY ==
--- OUTSIDE RECORDS SUMMARY | 2024-08-30 08:20 | XMS_ITS | Clinical Summary ---
Author Organization [facility] Address [address] [place] [address] Care Team Providers Care Health Sanitarian Name Role Phone Hesham Pacheco MD Primary Care Provider +1- [phone] Allergies Active Allergy Reactions Criticality Noted Date Comments Adhesives/Tape Other (See Comments) 03/12/2021 Skin peels off Amoxicillin-Pot Clavulanate Other (See Comments) 03/12/2021 GI upset Meperidine GI Intolerance/Nausea/Vo miting Low 03/11/2021 Latex Other (See Comments) 03/11/2021 Skin falls off Other Itching Low 03/12/2021 VICRYL SUTURES Oxycodone-Acetaminophen GI Intolerance/Nausea/Vo miting Low 03/11/2021 Medications Medication Sig Dispensed Refills Start Date End Date Status Levothyroxine Sodium (SYNTHROID PO) Take 112 mcg by mouth daily. BRAND NAME ONLY Active OMEprazole (PriLOSEC) 20 MG capsule Take 1 capsule (20 mg total) by mouth nightly as needed. Takes PRN Active Azelastine-Fluticason e (Dymista) 137-50 MCG/ACT Suspension into each nostril 2 (two) times a day. Active celeCOXIB (CeleBREX) 200 MG capsuleIndications:Th yroid nodule Take 1 capsule (200 mg total) by mouth daily as needed for mild pain. Do not start before April 04, 2021. 04/04/2021 Active diclofenac (VOLTAREN) 1 % gelIndications:Thyroi d nodule Apply topically 4 (four) times a day. Use dosing card to measure dose. Apply to entire affect area. Do not start before April 04, 2021. 04/04/2021 Active Vitamin D3 (CHOLECALCIFEROL) 50 MCG (2000 UT) tablet Take 1 tablet (2,000 Units total) by mouth daily. Active aspirin enteric coated (ECOTRIN LOW STRENGTH) 81 MG EC tablet Take 1 tablet (81 mg total) by mouth daily. Active Active Problems Problem Noted Date Diagnosed Date Thyroid nodule 03/11/2021 Overview (03/12/2021): 70 y.o. female with nontoxic right thyroid nodule. Patient stated she does not want a biopsy, she just wants it out due to the change in size. Ultrasound: 02/27/2021 @ [facility] 3.9 x 1.3 x 1.2 cm right lobe, 3.1 x 0.8 x 0.9 cm left lobe. Nodules: Right lobe: superior/mid 1.3 x 0.8 x 1.2 cm solid/almost completely solid, isoechoic, not taller than wide, smooth margins. TIRADS 3 Previously measured 1.1 x 0.6 x 0.9 cm. Left lobe: none IMPRESSION:Small heterogeneous hypervascular thyroid gland. Interval increase in solitary right thyroid nodule. FNA and follow up ultrasound recommended. FNA biopsy: none Molecular testing: Neck mapping ultrasound: TSH: 1.70 (08/22/20) Free T4: 1.06 (08/22/20) Total T3: Calcium: 9.4 (08/22/2020) Intact PTH: 25-OH vitamin D: Family History Medical History Relation Name Comments No Known Problems Daughter Heart attack Father Joshua Heart disease Father Joshua [place] @ 55 Diabetes Half-Sister Other Half-Sister blood disorder Goiter Mother Throat cancer Mother Cirrhosis Sister 1 Hanna alcool and drug use Diabetes Sister 1 Hanna Other Sister 2 ?lng cancer, sm oker No Known Problems Sister 3 Other Son killed, hit and run Relation Name Status Comments Daughter Alive Father Joshua Half-Sister Mother (Age 104) Sister 1 Hanna Sister 2 Sister 3 Alive Son (Age 37) Social History Tobacco Use Types Packs/Day Years Used Date Smoking Tobacco: Former Cigarettes 0.5 30 1 979 - 2009 Smokeless Tobacco: Never Tobacco Cessation:Counseling Given: Not Answered Alcohol Use Standard Drinks/Week Comments Never 0 (1 standard drink = 0.6 oz pur e alcohol) AUDIT-C Answer Date Recorded Q1: How often do you have a drink containing alcohol? Never 12/11/2022 Q2: How many drinks containi ng alcohol do you have on a typical day when you are drinking? Patient does not drink Q3: How often do you have si x or more drinks on one occasion? Never 12/11/2022 Sex and Gender Information Value Date Recorded Sex Assigned at Not on file Gender Identity Not on file Sexual Orientation Not on file Last Filed Vital Signs Vital Sign Reading Time Taken Comments Blood Pressure 174/74 12/17/2022 11:40 AM EDT Pulse 59 12/17/2022 11:45 AM EDT Temperature 36.3 ??C (97.3 ??F) 12/17/2022 9:33 AM ED T Respiratory Rate 15 12/17/2022 11:40 AM EDT Oxygen Saturation 98% 12/17/2022 11:45 AM EDT Inhaled Oxygen Concentration - - Weight 76.3 kg (168 lb 3.2 oz) 12/11/2022 4:20 P M EDT Height 172.7 cm (5' 8 ) 12/11/2022 4:20 PM EDT Body Mass Index 25.57 12/11/2022 4:20 PM EDT Plan of Treatment Health Maintenance Due Date Last Done Comments Hepatitis C Virus Screening 1950 DTaP/Tdap/Td Vaccines (1 - Tdap) 1967 Mammogram 1988 Pneumococcal Vaccines 50+ (1 of 1 - PCV) 1998 Zoster (Shingles) Vaccine (1 of 2) 1998 DXA Bone Density (Females,Ag es 65 and older) 2013 RSV Vaccine 60 years and old er and Patients (1 - 1-dose 75+ series) 2023 Influenza Vaccine 12/23/2023 COVID-19 Vaccine ( - 2023-2 5 season) 2024 Colonoscopy Discontinued 12/17/2022 Hepatitis B Vaccines Aged Out No long er eligible based on patient's age to complete this topic Care Teams Health Sanitarian Relationship Specialty Start Date End Date Hesham Pacheco MD [address] [place] [address] [place] [address] PCP - General Internal Medicine 03/11/21
--- OUTSIDE RECORDS SUMMARY | 2024-08-30 08:20 | XMS_ITS | Patient Health Record ---
Author Organization [facility] Address [address] [place] [address] Care Team Providers Care Instructional Aide Name Role Phone Po Raeann CORONA Primary Care Provider Kai Shepherd [phone] Reason For Referral No Information Plan Of Treatment No Information Insurance Providers Payer Name Payer Address Payer Phone Subscriber Number Group Number Insured Name Patient Relationship to Insured Coverage Start Date Coverage End Date [facility] [address] [place] [address] [id number] JACKELINE WILKS Self - patient is the insured
--- OUTSIDE RECORDS SUMMARY | 2024-08-30 08:20 | XMS_ITS | Clinical Summary ---
Author Organization [facility] Address [address] [place] [phone] Phone Care Team Providers Care Credit Control Manager Name Role Phone Hesham Pacheco MD Primary Care Provider Allergies Active Allergy Reactions Criticality Noted Date Comments Adhesive Tape-Silicones Wound Medium 03/12/2021 Skin peels off Latex Wound Medium 11/22/2020 Meperidine Hcl 11/22/2020 Oxycodone-Acetaminophen Nausea And Vomiting Medium 06/2020 Medications aspirin 81 mg EC tablet Take 1 tablet (81 mg total) by mouth 1 (one) time each day. Active cholecalciferol (VITAMIN D-3) 50 mcg (2,000 unit) tablet Take 1 tablet (2,000 Units total) by mouth. Active docusate sodium (COLACE) 100 mg capsule Take 1 capsule (100 mg total) by mouth 2 (two) times a day. Active gabapentin (NEURONTIN) 100 mg capsule Take 1 capsule (100 mg total) by mouth 3 (three) times a day. Active levothyroxine (SYNTHROID, LEVOTHROID) 112 mcg tablet Take 1 tablet (112 mcg total) by mouth 1 (one) time each day. Active magnesium oxide-Mg AA chelate (Magnesium, oxide/AA chelate,) 300 mg capsule Take 300 mg by mouth. Active omeprazole (PriLOSEC) [address] capsule Take 1 capsule (20 mg total) by mouth. Active cyanocobalamin (VITAMIN B-12) 1,000 mcg tablet Take 1 tablet (1,000 mcg total) by mouth 1 (one) time each day. Active magnesium oxide (MAG-OX) 400 mg magnesium tablet Take 1 tablet (400 mg total) by mouth 1 (one) time each day. Active Active Problems Problem Noted Date Diagnosed Date PONV (postoperative nausea and vomiting) 024 Hypothyroidism 03/28/2024 Gastroesophageal reflux disease 03/28/2024 Lumbar spondylosis 02/18/2024 Overview (03/10/2024): Last Assessment & Plan: Patient is s/p L2-3, L3-4-5 decompression 11/29/2015. For the last 5 or 6 months she has been noticing pain from the right low back, right lateral hip, right groin, anterior thigh, as well as lateral leg and posterior calf pain. She has been getting tingling in the right 3rd through 5th toes, and a lot of leg cramps, her PCP prescribed magnesium, she does feel that it is helping the calf cramping. 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 Since this started she has tried vitamins, Voltaren, Celebrex, started gabapentin a couple months back and does feel it is helping. She does not feel that she has to lift the leg for example to get in and out of the car, she does have good IP strength, overall it does not limit her day-to-day activity, but she notes when she tries to do the 4 stretch she has decreased hip motion on the right compared to the left. She rates her daily pain 3-7/10, states some days are better than others but she always has some symptoms. Patient had lumbar spine x-[place]08/2024 [place] [facility] with multilevel degenerative disc disease, most advanced at L5-S1 with multilevel bilateral facet arthropathy. Radiologist states similar when compared to prior CT abdomen pelvis 03/04/2023. She also had right hip x-ray that showed severe right hip OA. Radiologist states similar when compared to CT abdomen 03/04/2023. I reviewed the images with the patient. Ms. Reese has right low back pain, pain down the lateral leg, calf, tingling in the 3rd through 5th right toes. We can check lumbar spine MRI with and without contrast to rule out nerve root compression, on x-rays has L5-S1 DDD, possible nerve root compression contributing to some of her leg symptoms. It also sounds like she has right hip bursitis and possible right SI joint pain, and her right hip OA could be causing the groin and anterior thigh pain that comes and goes. She is a patient down in orthopedics already, I will message them and see if she needs a new referral specifically for the hip, has seen Dr. Still for the shoulder and Dr. Galvan for her hand. I gave her a copy of her hip x-ray report to bring to their office. All questions answered. I will review her MRI with Dr. Ascencio once completed and call her with an update. I also gave her a prescription to start some physical therapy for the back and hip symptoms. Assessment & Plan (05/26/2024 11:14 AM EST): Ms. Reese is doing quite well since the decompression surgery with the most notable residual symptom of numbness in the distal right S1 distribution. I reassured her that this can take up to 1 year to resolve and is not concerning as long as it does not inhibit her walking or activity. We also discussed some lower back muscle fatigue and strain which I think will respond well to a core strengthening program. She is looking forward to doing that and becoming more active. We also discussed a plan to wean off of gabapentin over the next 2-weeks. She is welcome to contact us in the future if she has any new concerns. Assessment & Plan (04/07/2024 4:57 PM EST): Patient is 10 days s/p right L5-S1 minimally invasive decompression. She is very happy with her postop results, sees relief in her right leg pain, has some residual numbness tingling aching in the 3rd through 5th toes. She has not had any wound drainage, fever, sweats chills, decreased appetite or bowel bladder issues. She took narcotics for 1 day postop, since then has minimal pain and not requiring pain meds. Ms. Reese is doing well postop, will follow-up in [address] Ascencio. All postop questions answered. She should hopefully continue to note improvement as the nerve heals. Thyroid nodule 03/11/2021 Overview (03/10/2024): 70 y.o. female with nontoxic right thyroid nodule. Patient stated she does not want a biopsy, she just wants it out due to the change in size. Ultrasound: 02/27/2021 @ [facility] 3.9 x 1.3 x 1.2 cm right [...] 9.4 (08/22/2020) Intact PTH: 25-OH vitamin D: Foreign body granuloma of skin 01/21/2021 Skin lesion of hand 01/21/2021 Immunizations Name Administration Dates Next Due Influenza trivalent, 0.5mL ( Fluad) 65yo and older 01/31/2020,03/16/2018,02/15/2017,02/09 Influenza trivalent, 0.5mL, preservative free (Fluarix; FluLaval; Fluzone) ages 6mo and older (Afluria) 3 years and older 02/23/2019 Pneumococcal conjugate 13 va lent (Prevnar 13, PCV13) 2mo and older 02/25/2017 Pneumococcal polysaccharide 23 valent (Pneumovax 23) 2yo and older 02/15/2017 TD, Adsorbed, Preservative Free 09/28/2015 Zoster Live 05/24/2014 Surgical History Surgery Date Site/Laterality Comments EYE SURGERY OTHER SURGICAL HISTORY LUMBAR LAMINECTOMY 11/29/2015 s/p L2-3, L3-4-5 decompression, Dr. Ascencio TRIGGER FINGER RELEASE SHOULDER SURGERY THYROID SURGERY APPENDECTOMY BACK SURGERY 03/28/2024 Right L5-S1 minimally invasive decompression, Dr. Ascencio Medical History Medical History Date Comments PONV (postoperative nausea and vomiting) Pneumonia Hypothyroidism Diverticulosis Neuromuscular disorder (CMS/HCC) Joint pain Arthritis Sciatica Social History Tobacco Use Types Packs/Day Years Used Date Smoking Tobacco: Former Cigarettes Smokeless Tobacco: Never Tobacco Cessation:Counseling Given: Not Answered Alcohol Use Standard Drinks/Week Comments Never 0 (1 standard drink = 0.6 oz pur e alcohol) Interpersonal Safety Answer Date Record ed Physical Abuse 03/28/2024 Verbal Abuse 03/28/2024 Comments Unknown Sex and Gender Information Value Date Recorded Sex Assigned at Female 03/28/2024 11:02 AM EST Legal Sex Female 11:10 PM EST Gender Identity Female 03/28/2024 11:02 AM EST Sexual Orientation Straight 03/28/2024 11 :02 AM EST Obstetrics History Last Filed Vital Signs Vital Sign Reading Time Taken Comments Blood Pressure 147/66 03/28/2024 10:14 AM EST Pulse 63 03/28/2024 10:14 AM EST Temperature 36.4 ??C (97.5 ??F) 03/28/2024 10:[address] Respiratory Rate 16 03/28/2024 10:00 AM EST Oxygen Saturation 94% 03/28/2024 10:14 AM EST Inhaled Oxygen Concentration - - Weight 78 kg (172 lb) 05/26/2024 10:34 AM EST Height 172.7 cm (5' 8 ) 05/26/2024 10:34 AM EST Body Mass Index 26.15 05/26/2024 10:34 AM EST Plan of Treatment Upcoming Encounters Date Type Department Care Team (Late st Contact Info) Description 09/08/2024 9:00 AM EDT Procedure visit Orthopedic Surgery [facility] 160 175 [facility] [address] [place] [phone] Lauren Cobb MD [address] [address] Health Maintenance Due Date Last Done Comments Zoster Vaccines (2 of 3) 07/19/2014 05/24/2014 DTaP,Tdap,and Td Vaccines (1 - Tdap) 09/29/2015 09/28/2015 Depression Screening 04/26/2022 Hepatitis C Screening 04/26/2022 Medicare Annual Wellness Visit 04/26/2022 Osteoporosis Screening (Bone Density Screening) 04/26/2022 Social Influencers of Health Screening 04/26/2022 RSV Immunization Adult Patients (1 - 1-dose 75+ series) 2023 Influenza Vaccine (#1) 2024 0, 02/23/2019, 03/16/2018, Additional history exists Falls Risk Assessment 03/28/2025 03/28/2024 Pneumococcal Vaccine: 50+ Years Completed 02/25/2017, 02/15/2017 Colorectal Cancer Screening: FIT-DNA (Cologuard) Discontinued 11/17/2022, 11/17/2022, 12/14/2018 COVID-19 Vaccine Completed 02/05/2024, , 02/08/2022, Additional history exists HIB Vaccines Aged Out No longer eligi ble based on patient's age to complete this topic HPV Vaccines Aged Out No longer eligi ble based on patient's age to complete this topic Hepatitis A Vaccines Aged Out No long er eligible based on patient's age to complete this topic Hepatitis B Vaccines Aged Out No long er eligible based on patient's age to complete this topic IPV Vaccines Aged Out No longer eligi ble based on patient's age to complete this topic MMR Vaccines Aged Out No longer eligi ble based on patient's age to complete this topic Meningococcal ACWY Vaccine Aged Out N o longer eligible based on patient's age to complete this topic Meningococcal B Vaccine Aged Out No l onger eligible based on patient's age to complete this topic RSV Immunization Patients Under 20 months Aged Out No longer eligible based on patient's age to complete this topic Varicella Vaccines Aged Out No longer eligible based on patient's age to complete this topic Medical Devices Implanted Type Area Pest Control Chemical Technician Device Identifier Shelf Expiration Date Model / Serial / Lot Opthalmology Implants Opthalmology Implants Bilater al: [place] [id number] BLUE CROSS - [place] (ANTHEM) MEDICARE ADVANTAGE Care Teams Credit Control Manager Relationship Specialty Start Date End Date Hesham Pacheco MD [address] [place] [address] Dr [address] DINA Myers PCP - General Internal Medicine 11/19/20
--- OUTSIDE RECORDS SUMMARY | 2024-08-30 08:20 | XMS_ITS | Encounter Summary ---
Author Organization [facility] Address [address] [place] [id number] Care Team Providers Care Day Camp Counselor Name Role Phone Hesham Pacheco MD Primary Care Provider +1- [phone] Encounter Details Date Type Department Care Team (Late st Contact Info) Description 03/17/2021 Scanned Document [facility] Surgical Oncology [address] [phone] [place] [address] [place] [address] [address] [place] [address] Social History Tobacco Use Types Packs/Day Years Used Date Smoking Tobacco: Former Cigarettes 2008 Smokeless Tobacco: Never Alcohol Use Standard Drinks/Week Comments Never 0 (1 standard drink = 0.6 oz pur e alcohol) Sex and Gender Information Value Date Recorded Sex Assigned at Not on file Gender Identity Not on file Sexual Orientation Not on file COVID-19 Exposure Response Date Recorded In the last month, have you been in contact with someone who was confirmed or suspected to have Coronavirus / COVID-19? No / Unsure 03/20/2021 12:25 PM EDT documented as of this encounter Plan of Treatment Not on file documented as of this encounter Visit Diagnoses Not on filedocumented in this encounter Care Teams Day Camp Counselor Relationship Specialty Start Date End Date Hesham Pacheco MD [address] [place] [address] [place] [address] PCP - General Internal Medicine 03/11/21 documented as of this encounter
--- OUTSIDE RECORDS SUMMARY | 2024-08-30 08:20 | XMS_ITS | Encounter Summary ---
Author Organization [facility] Address [address] [place] [address] Care Team Providers Care Principal Network Engineer Name Role Phone Hesham Pacheco MD Primary Care Provider +1- [phone] Encounter Details Date Type Department Care Team (Late st Contact Info) Description 03/27/2021 Scanned Document [facility] PRIMARY [facility]ARE [facility] Hesham Pacheco MD [address] [place] [address] [place] [address] Social History Tobacco Use Types Packs/Day Years [...] have Coronavirus / COVID-19? No / Unsure 03/25/2021 2:41 PM EDT documented as of this encounter Plan of Treatment Not on file documented as of this encounter Visit Diagnoses Not on filedocumented in this encounter Care Teams Principal Network Engineer Relationship Specialty Start Date End Date Hesham Pacheco MD [address] [place] [address] [place] [address] PCP - General Internal Medicine 03/11/21 documented as of this encounter
[2024-08-30 08:31] LABS: MANUAL DIFF FLAG NO
[2024-08-30 09:26] LABS: Basophils Absolute Auto 0.1 X10*3/uL (0.0-0.2); Basophils Percent Auto 0.8 % (0-2); Eosinophils Absolute Auto 0.2 X10*3/uL (0.0-0.4); Eosinophils Percent Auto 2.6 % (0-4); Hematocrit 43.8 % (37.0-47.0); Hemoglobin 14.4 g/dl (12.0-16.0); Imm Gran Abs Auto 0.04 X10*3/uL (0.00-0.03); Imm Gran Pct Auto 0.6 % (0.0-0.4); Lymphocytes Absolute Auto 2.3 X10*3/uL (1.2-4.9); Lymphocytes Percent Auto 32.2 % (20-40); Mean Corpuscular HGB Conc 32.9 g/dl (31.0-35.0); Mean Corpuscular Hemoglobin 29.5 pg (27.0-33.0); Mean Corpuscular Volume 89.8 fL (80.0-98.0); Mean Platelet Volume 10.6 fL (9.4-12.3); Monocytes Absolute Auto 0.5 X10*3/uL (0.1-1.2); Monocytes Percent Auto 7.3 % (2-11); Neutrophils Absolute Auto 4.1 x10*3/uL (2.0-8.3); Neutrophils Percent Auto 56.5 % (45-73); Platelet Count 256 X10*3/uL (160-400); Red Blood Count 4.88 X10*6/uL (4.20-5.50); Red Cell Distribution Width 12.8 % (11.0-16.0); White Blood Count 7.2 X10*3/uL (4.8-10.8)
[2024-08-30 09:29] LABS: Estimated Average Glucose 131 mg/dL; Hemoglobin A1C 164.2984 umol/L; Hemoglobin A1c % 6.2 % (<6.0)
[2024-08-30 09:30] LABS: Appearance Urine Clear; Color Urine Yellow; Glucose Urine UA Negative (Negative); Leukocyte Esterase Urine Negative (Negative); Nitrite Urine Negative (Negative); Urine Blood Negative (Negative); Urine Ketones Negative (Negative); Urine Protein Negative (Neg-Trace)
[2024-08-30 09:55] LABS: Alanine Aminotransferase 12 U/L (0-31); Albumin Level 4.3 g/dL (3.5-5.0); Alkaline Phosphatase 77 U/L (39-117); Anion Gap 10 (12-20); Aspartate Amino Transferase 18 U/L (5-31); Bilirubin Total 0.4 mg/dL (0.0-1.0); Blood Urea Nitrogen 16 mg/dL (9-16); Calcium 9.6 mg/dL (8.4-10.2); Carbon Dioxide 28 mmol/L (22-29); Chloride 108 mmol/L (96-108); Cholesterol 219 mg/dL (<200); Estimated Glomerular Filt Rate > 60; Glucose Fasting 123 mg/dL (60-99); HDL Cholesterol 62 mg/dL (>40); LDL Cholesterol Calculated 122 mg/dL (<100); Potassium 4.6 mmol/L (3.3-5.1); Sodium 141 mmol/L (135-145); Total Protein 7.1 g/dL (6.5-8.0); Triglycerides 175 mg/dL (<150)
[2024-08-30 10:20] LABS: Free T4 (Free Thyroxine) 1.31 ng/dL (0.71-1.85); Thyroid Stimulating Hormone 0.84 uIU/mL (0.32-4.0); Vitamin D 25-OH Total 56.5 ng/mL (>30)
== END 2024-08-30 08:14 | disposition home or self-care (01) ==
LOC: HO.LAB 08:13
PROVIDERS: PCP Internal Medicine; Visit Provider Internal Medicine
DX: D64.9 Anemia, unspecified (principal); E78.00 Pure hypercholesterolemia, unspecified; R73.01 Impaired fasting glucose; E03.9 Hypothyroidism, unspecified; R30.0 Dysuria; E55.9 Vitamin D deficiency, unspecified
CPT/HCPCS: 36415; 80053; 80061; 81003; 82306; 83036; 84439; 84443; 85025

== ENCOUNTER 2024-09-04 15:35 | Outpatient (AMB) | payer MEDICARE, SELFPAY ==
--- NOTE | 2024-09-04 15:38 | A.OFFPC_ITS ---
Vital Signs 09/04/24 15:40 Height 5 ft 8 in Weight 177 lb 4 oz BMI 26.9 BP 132/60 Blood Pressure Location Lt brachial Position Sitting Pulse 74 Pulse Source Pulse Oximeter Temp 97.3 F Temp Source Temporal Artery Scan Pulse Oximetry (%) 97 Oxygen Delivery Method Room Air Intake Visit Reasons: lumbar spinal stenosis, hypothyroidism, IFG Intake Note: Patient is here to follow up on Lumbar spinal stenosis, Hypothyroidism, IFG. Dye Mixer Required: No Director Statistical Programming: Present Accompanied by: Spouse Allergies adhesive tape [ADHESIVE TAPE] Allergy (Severe, Verified 09/04/24 16:02) PEELS SKIN OFF acetaminophen [From DARVOCET-N 100] Allergy (Intermediate, Verified 09/04/24 16:02) VOMITTING Darvocet A500 Allergy (Unknown, Verified 09/04/24 16:02) vomiting oxycodone [Percocet] Allergy (Unknown, Verified 09/04/24 16:02) Unknown amoxicillin [Augmentin] Adverse Reaction (Unknown, Verified 09/04/24 16:02) stomach upset clavulanic acid [Augmentin] Adverse Reaction (Unknown, Verified 09/04/24 16:02) stomach upset From DEMEROL Allergy (Intermediate, Uncoded 09/04/24 16:02) VOMITTING ENVIRONMENTAL Allergy (Unknown, Uncoded 09/04/24 16:02) RHINITIS VICRYL SUTURES Allergy (Unknown, Uncoded 09/04/24 16:02) ITCHING Medication List - Last Reconciled 09/04/24 by Hesham Pacheco MD azelastine-fluticasone 137-50 mcg/spray (Dymista) 1 spray intranasal BID PRN 30 days celecoxib 200 mg PO DAILY cyclobenzaprine 10 mg PO TID PRN 30 days diclofenac sodium 1% 4 grams topical QID PRN 90 days fluconazole 150 mg PO Q3D 2 doses gabapentin 100 mg PO TID 90 days lorazepam 0.5 mg PO BID PRN 30 days magnesium glycinate 360 mg PO .1 cap BID mupirocin 2% 1 appl topical TID 10 days nitrofurantoin monohyd/m-cryst 100 mg (Macrobid) 100 mg PO Q12H 7 days omeprazole 20 mg PO DAILY 90 days Synthroid (levothyroxine) 125 mcg PO DAILY 90 days NS Tobacco use date assessed: 09/04/24 Fall risk assessment: No Falls in past year Last assessed Fall Risk: 09/04/24 Dental Screening Dental Screen Date: 09/04/24 Did you have a dental visit in the last 12 months?: Yes Did you have a dental problem in the last 6 months where you did not have access to dental care?: No Was dental information given to patient?: Patient has dentist HPI lumbar spinal stenosis, hypothyroidism, IFG HPI Details Patient comes in today for her follow up visit States that she feels okay except for recurrent right hip pain States that her previous recurrent right-sciatica symptoms turned out to be actually due to arthritis of her right hip rather than from her lower back and s he was referred by Dr. Lake to [facility], who she has been seeing for the past couple of months now States that she is recommended to undergo right hip replacement surgery but she would like to hold off on this until this fall She denies any headaches or dizziness Denies any chest pains, no SOB No nausea/vomiting, no abdominal pain No change in bowel habits noted She needs a few of her Rx refilled today She had her follow up labs done a few days ago - to discuss her results [facility] Medical History Primary osteoarthritis of right hip Allergic rhinitis GERD (gastroesophageal reflux disease) Nontoxic uninodular goiter Overweight (BMI 25.0-29.9) Anxiety Primary osteoarthritis of both knees Right thyroid nodule Lumbar spinal stenosis Impaired fasting glucose Hypothyroidism Pure hypercholesterolemia Surgical History History of lobectomy of thyroid (~04/01/21) History of surgery Hx of hand surgery History of colonoscopy History of hand surgery Family History Other Family history non-contributory Social History Housing: House Alcohol intake: never Patient Tobacco Use Status: Former Tobacco user e-Cigarette/Vaping Use: Never Used Second Hand Smoke Exposure: Yes service: No Current occupational status: retired Cognitive needs: No Hearing needs: No Vision needs: Yes Questionnaire PHQ-9 Over the last 2 weeks, how often have you been bothered by any of the following problems? 1. Little interest or pleasure in doing things: not at all 2. Feeling down, depressed, or hopeless: not at all 3. Trouble falling or staying asleep, or sleeping too much: not at all 4. Feeling tired or having little energy: not at all 5. Poor appetite or overeating: not at all 6. Feeling bad about yourself - or that you are a failure or have let yourself or your family down: not at all 7. Trouble concentrating on things, such as reading the newspaper or watching television: not at all 8. Moving or speaking so slowly that other people could have noticed. Or the opposite - being so fidgety or restless that you have been moving around a lot more than usual: not at all 9. Thoughts that you would be better off or of hurting yourself in some way: not at all Total score: 0 Depression Screening Interpretation: Negative Depression Screening Done: Yes 61378 - PHQ-9 Billing: Yes Source: Developed by Drs. Kai Sy, Ariana Singh, Orlando Senior and colleagues, with an educational shelia from [employer]. Thrive Questionnaire Date Thrive assessed: 09/04/24 I am a: Patient What is your living situation today?: I have a steady place to live Within the past 12 months, did the food you bought not last and you didn't have the money to get more?: Never true Within the past 12 months, did you worry whether your food would run out before you got money to buy more?: Never true Do you have trouble paying for medicines?: No Do you have trouble getting transportation to medical appointments?: No Do you have trouble paying your heating and electricity bill?: No Do you have trouble taking care of your child, family member or friend?: No Do you have trouble with day-to-day activities such as bathing, preparing meals, shopping, managing finances, etc.?: No Are you currently unemployed and looking for a job?: No Are you interested in more education?: No Please select the resources that you would like help with: None Currently or been in a relationship where the following occur: No concerns reported THRIVE Score: 0 AUDIT C Alcohol Use Questionnaire (AUDIT-C) 1. How often do you have a drink containing alcohol?: Never 3. How often do you have six or more drinks on one occasion?: Never Total Score: 0 Score Reviewed/Action Taken: Yes GINO-7 AMB Questionnaire GINO-7 Date GINO - 7 assessed: 09/04/24 Feeling nervous, anxious, or on edge: 0 = Not at all Not being able to stop or control worryin = Not at all Worrying too much about different things: 0 = Not at all Trouble relaxin = Not at all Being so restless that it is hard to sit still: 0 = Not at all Becoming easily annoyed or irritable: 0 = Not at all Feeling afraid as if something awful might happen: 0 = Not at all Total GINO-7 score (0-4 normal; 5-9 mild; 10-14 moderate; 15-21 severe): 0 Source: Developed by Drs. Kai Sy, Ariana Singh, Orlando Senior and colleagues, with an educational shelia from [employer]. Review of Systems Const Denies chills, Denies fatigue, Denies fever(s) and Denies headache(s) ENT Denies dysphagia, Denies dizziness, Denies otalgia, Denies headache(s), Denies neck pain, Denies odynophagia and Denies sore throat Card Denies chest pain, Denies palpitations and Denies dyspnea Resp Denies chest congestion, Denies cough and Denies dyspnea GI Denies abdominal pain, Denies constipation, Denies dysphagia, Denies heartburn, Denies diarrhea, Denies nausea, Denies odynophagia and Denies vomiting Denies difficulty voiding, Denies nocturia, Denies dysuria and Denies urinary urgency Musc Reports back pain (over the lower back; previous R-sided sciatica / pain has improved), Reports arthralgias (over both knees, on and off; in the right hip - increased lately), Denies neck pain and Reports numbness (in some toes of the right foot, on and off) Skin/Breast Denies rash Neuro Denies dizziness, Denies headache(s) and Reports numbness (in some toes of the right foot, on and off) Endo Denies fatigue and Denies palpitations Physical exam (Primary Care) Vital Signs: Last Vital Signs Temp 97.3 F 09/04/24 15:40 Pulse 74 09/04/24 15:40 BP 132/60 09/04/24 15:40 Pulse Ox 97 09/04/24 15:40 Oxygen Delivery Method Room Air 09/04/24 15:40 BMI result Body Mass Index 26.9 Tobacco/Smoking Status: Tobacco use Status Tobacco use date assessed 09/04/24 09/04/24 15:49 Patient Tobacco Use Status Former Tobacco user 09/04/24 15:49 e-Cigarette/Vaping Use Never Used 09/04/24 15:49 PHQ-9: PHQ-9 Score PHQ-9: Total score 0 09/04/24 16:05 Depression Screening Interpretation: Negative Thrive Assessment: Date of Thrive Assessment Date Thrive assessed 09/04/24 09/04/24 15:49 Currently or been in a relationship where the following occur: No concerns reported Const General: no acute distress and alert HENMT Ears: TM's normal bilaterally and EAC's normal Throat: Yes posterior oropharynx normal and Yes tonsils normal (no TP congestion) Neck Neck: Yes no lymphadenopathy and Yes supple Thyroid: Thyroid normal Resp Auscultation: clear to auscultation bilaterally, no rales and no wheezes Cardio Rate: regular rate Rhythm: regular rhythm Heart sounds: no murmurs GI Palpation (GI): Soft to palpation and nontender Auscultation: normal bowel sounds General: Yes no CVA tenderness Back/Spine/Pelvis Back: no CVA tenderness Thoracic/Lumbar Spine: straight leg raise negative bilaterally, paraspinal muscle tenderness on the right (mild) in the lower lumbar and lumbar spinal tenderness Skin Rashes: no rashes Extrem General: Yes no clubbing, cyanosis or edema Right lower extremity: hip/thigh Details: tenderness Location: of the hip Results Reviewed Results Reviewed: Laboratory Tests 04/21/24 08/30/24 08/30/24 09:02 08:28 08:29 WBC 7.2 Hgb 14.4 Hct 43.8 Plt Count 256 Sodium 141 Potassium 4.6 Creatinine 0.91 Estimated GFR > 60 Fasting Glucose 123 H Hemoglobin A1c % 6.2 H Calcium 9.6 D AST 18 ALT 12 Triglycerides 140 175 H Cholesterol 227 H 219 H LDL Cholesterol, Calc 137 H 122 H HDL Cholesterol 62 62 25-OH Vitamin D Total 56.5 TSH 0.84 Free T4 1.31 Ur Specific [place] 1.010 Urine Protein Negative Urine Glucose (UA) Negative Urine Blood Negative Urine Nitrite Negative Ur Leukocyte Esterase Negative Coding Level of Care Code Est Pt Level 4 (36181) Complex EM visit Add On G2211 Diagnoses Pure hypercholesterolemia E78.00 Nontoxic uninodular goiter E04.1 Impaired fasting glucose R73.01 Gastroesophageal reflux disease without esophagitis K21.9 Esophagitis presence: without esophagitis Spinal stenosis of lumbar region, unspecified whether neurogenic claudication present M48.061 Neurogenic claudication status: unspecified Primary osteoarthritis of right hip M16.11 Primary osteoarthritis of both knees M17.0 Allergic rhinitis, unspecified seasonality, unspecified trigger J30.9 Allergic rhinitis seasonality: unspecified Allergic rhinitis trigger: unspecified Anxiety F41.9 Overweight (BMI 25.0-29.9) E66.3 Additional Codes PHQ-9 - 03685 - PHQ-9 Billing: Yes ([id number]) Assessment & Plan Assessment & Plan (1) Pure hypercholesterolemia: Code(s): E78.00 - Pure hypercholesterolemia, unspecified Category: Medical Plan: Results of her labs done last week reviewed and discussed with patient - have advised patient that her cholesterol levels are still slightly elevated and are mostly unchanged from previous Reinforced low cholesterol diet; patient continues to decline offer to start her on Rx for her cholesterol Will recheck her labs and fasting lipids in 4 months for follow up (2) Nontoxic uninodular goiter: Comment: right thyroid Code(s): E04.1 - Nontoxic single thyroid nodule Category: Medical Plan: S/P right thyroid lobectomy and isthmusectomy under general anesthesia by Dr. Elda Mckee on 04/01/2021 Patient declined FNA Bx initially and wished to just proceed directly to surgical excision (with Dr. Mckee) after her repeat thyroid US done revealed an interval increase in size from the year before Her free T4 was again normal on her recent labs; TSH was also normal Continue Synthroid 125 mcg QD Will continue to monitor her TFTs regularly (3) Impaired fasting glucose: Code(s): R73.01 - Impaired fasting glucose Category: Medical Plan: HgbA1c was at 6.2% on her labs done a few days ago; she was previously at 6.0% Reinforced low calorie/low carb diet; exercise as tolerated - states that she has not been able to do this much lately due to her back surgery, followed by her current right hip issues Will recheck these again in 4 months for follow up (4) GERD (gastroesophageal reflux disease): Code(s): K21.9 - Gastro-esophageal reflux disease without esophagitis Category: Medical Qualifiers: Esophagitis presence: without esophagitis Qualified Code(s): K21.9 - Gastro-esophageal reflux disease without esophagitis Plan: Dietary restrictions reinforced Continue Omeprazole 20 mg QD (5) Lumbar spinal stenosis: Code(s): M48.061 - Spinal stenosis, lumbar region without neurogenic claudication Category: Medical Qualifiers: Neurogenic claudication status: unspecified Qualified Code(s): M48.061 - Spinal stenosis, lumbar region without neurogenic claudication Plan: Her lumbar spine MRI done last month on 02/26/2024 revealed (+) multilevel lumbar degenerative disc disease most severe at L2-3 and L5-S1. Lumbar spondylosis resulting in multilevel spinal canal and foraminal narrowing; spinal canal stenosis is most severe at L3-4. At L4-5 and L5-S1 there is severe right-sided foraminal stenosis with disc contacting the traversing right L4 and L5 nerve roots Patient was subsequently referred to Dr. Lake for neurosurgery consultation and she eventually underwent right L5-S1 minimally invasive decompression last month on 03/28/2024 at [facility] She reports (+) significant relief of her right-sided sciatica symptoms following her surgery but she still has minimal residual pain and numbness in her right leg/foot/toes occasionally She has also been experiencing what she thought was right-sided sciatica, which turned out to be pain from her right hip Continue Gabapentin 100 mg TID Reinforced activity and weight-lifting restrictions Follow up with neurosurgery (Dr. Lake) as scheduled (6) Primary osteoarthritis of right hip: Code(s): M16.11 - Unilateral primary osteoarthritis, right hip Category: Medical Plan: X-rays of the right hip done in January 2024 revealed (+) severe right hip osteoarthritis with femoral neck buttressing, similar when compared to prior examination in February 2023 (CT) She is now seeing [facility] for her right hip OA and she has been recommended to undergo right hip replacement surgery, which patient would like to put off until this fall Follow up with orthopedics as scheduled (7) Primary osteoarthritis of both knees: Code(s): M17.0 - Bilateral primary osteoarthritis of knee Category: Medical Plan: X-rays of the knees done back in January 2020 revealed (+) medial and patellofemoral compartment degenerative changes with apical spurring in both knees Continue Celecoxib 200 mg QD PRN Will consider referral to orthopedics if her knee pain progress or worsen (8) Allergic rhinitis: Code(s): J30.9 - Allergic rhinitis, unspecified Category: Medical Qualifiers: Allergic rhinitis seasonality: unspecified Allergic rhinitis trigger: unspecified Qualified Code(s): J30.9 - Allergic rhinitis, unspecified Plan: Continue Azelastine-Fluticasone 137-50 mcg nasal spray 1 spray into each nostril BID PRN (9) Anxiety: Code(s): F41.9 - Anxiety disorder, unspecified Category: Medical Plan: Continue Lorazepam 0.5 mg 2 to 3 times a day PRN (Rx refilled) - states that she takes this only as needed She declined referral to psychiatry as well as Rx for maintenance therapy - feels that she is doing well on Lorazepam PRN alone (10) Overweight (BMI 25.0-29.9): Code(s): E66.3 - Overweight Category: Medical Plan: Reinforced diet; exercise and weight loss are not realistic at this time due to her right hip and lower back issues Plan Follow up in 4 months Orders: Orders Comprehensive [place]. Panel Fast 4 Months E78.00 - Pure hypercholesterolemia, unspecified Thyroid Stimulating Hormone 4 Months E03.9 - Hypothyroidism, unspecified Hemoglobin A1c 4 Months R73.01 - Impaired fasting glucose UA CC w/rflx Micro + Cult 4 Months R30.0 - Dysuria Vitamin D 25-OH Total 4 Months E55.9 - Vitamin D deficiency, unspecified Complete Blood Count Auto Diff 4 Months D64.9 - Anemia, unspecified Lipid Panel 4 Months E78.00 - Pure hypercholesterolemia, unspecified Free T4 (Free Thyroxine) 4 Months E03.9 - Hypothyroidism, unspecified Medications: Refilled lorazepam 0.5 mg PO BID PRN 60 tabs 0RF anxiety 30 days omeprazole 20 mg PO DAILY 90 caps 3RF 90 days cyclobenzaprine 10 mg PO TID PRN 90 tabs 0RF muscle spasm 30 days S39.012A - Strain of muscle, fascia and tendon of lower back, initial encounter lorazepam 0.5 mg PO BID 30 days PRN 60 tabs 0RF anxiety azelastine-fluticasone 137-50 mcg/spray (Dymista) administer into each nostril 1 spray intranasal BID PRN 23 grams 5RF nasal congestion 30 days
[2024-09-04 15:40] VITALS: BP 132/60; PULSE 74; TEMP 36.3; O2SAT 97; BMI 26.9
--- OUTSIDE RECORDS SUMMARY | 2024-09-04 18:01 | XMS_ITS | Encounter Summary ---
Author Organization [facility] Address [address] [place] [address] Care Team Providers Care Berry Picker Machine Operator Name Role Phone Hesham Pacheco MD Primary Care Provider [phone]- [phone] Encounter Details Date Type Department Care Team (Late st Contact Info) Description 03/27/2021 Scanned Document [facility] PRIMARY CARE SCAN Hesham Pacheco MD [address] [place] [address] [place] [address] Social History Tobacco Use Types Packs/Day Years [...] on filedocumented in this encounter Care Teams Berry Picker Machine Operator Relationship Specialty Start Date End Date Hesham Pacheco MD [address] [place] [address] [place] [address] PCP - General Internal Medicine 03/11/21 documented as of this encounter
--- OUTSIDE RECORDS SUMMARY | 2024-09-04 18:01 | XMS_ITS | Encounter Summary ---
Author Organization [facility] Address [address] [place] [id number] Care Team Providers Care Electric Stop Installer Name Role Phone Hesham Pacheco MD Primary Care Provider +1- [phone] Encounter Details Date Type Department Care Team (Late st Contact Info) Description 03/17/2021 Scanned Document [facility] [address] [phone] [place] [address] [place] [address] [address] [place] [address] Social History Tobacco Use Types Packs/Day Years [...] on filedocumented in this encounter Care Teams Electric Stop Installer Relationship Specialty Start Date End Date Hesham Pacheco MD [address] [place] [address] [place] [address] PCP - General Internal Medicine 03/11/21 documented as of this encounter
--- OUTSIDE RECORDS SUMMARY | 2024-09-04 18:01 | XMS_ITS | Clinical Summary ---
Author Organization [facility] Address [address] [place] [phone] Phone Care Team Providers Care Tool Crib Manager Name Role Phone Hesham Pacheco MD [...] Patient had lumbar spine x-ray 02/08/2024 at [facility] with multilevel degenerative disc disease, most advanced [...] the change in size. Ultrasound: 02/27/2021 @ [facility] 3.9 x 1.3 x 1.2 cm right [...] and vomiting) Pneumonia Hypothyroidism Diverticulosis Neuromuscular disorder ([facility] V24, [facility] V28 ) Joint pain Arthritis Sciatica Social History Tobacco [...] 9:00 AM EDT Procedure visit Orthopedic Surgery [facility] 160 175 [facility] [address] [place] [id number] Lauren Cobb MD [address] [address] Health Maintenance Due Date Last Done Comments Zoster Vaccines (2 of 3) 07/19/2014 05/24/2014 DTaP,Tdap,and Td Vaccines (1 - Tdap) 09/29/2015 09/28/2015 Depression Screening 04/26/2022 Hepatitis C Screening 04/26/2022 Medicare Annual Wellness Visit 04/26/2022 Osteoporosis Screening (Bone Density Screening) 04/26/2022 Social Influencers of Health Screening 04/26/2022 RSV Immunization Adult Patients (1 - 1-dose 75+ series) 2023 Influenza Vaccine (Season Ended) 2025 01/31/2020, 02/23/2019, 03/16/2018, Additional history exists Falls Risk [...] this topic Medical Devices Implanted Type Area Web Content Editor Device Identifier Shelf Expiration Date Model / Serial / Lot Opthalmology Implants Opthalmology Implants Bilater al: Eye Insurance [employer] [place] MEDIC[place] ADVANTAGE Care Teams Tool Crib Manager Relationship Specialty Start Date End Date Hesham Pacheco MD [address] [place] [address] [address] [place] PCP - General Internal Medicine 11/19/20
--- OUTSIDE RECORDS SUMMARY | 2024-09-04 18:01 | XMS_ITS | Patient Health Record ---
Author Organization [facility] Address [address] [place] [address] Care Team Providers Care Emissions Repair Technician Name Role Phone Po Raeann CORONA Primary Care Provider Kai Shepherd [phone] Reason For Referral No Information Plan Of Treatment No Information Insurance Providers Payer Name Payer Address Payer Phone Subscriber Number Group Number Insured Name Patient Relationship to Insured Coverage Start Date Coverage End Date [facility] [address] [place] [address] [id number] JACKELINE WILKS Self - patient is the insured
--- OUTSIDE RECORDS SUMMARY | 2024-09-04 18:01 | XMS_ITS | Clinical Summary ---
Author Organization [facility] Address [address] [place] [address] Care Team Providers Care Floor Person Name Role Phone Hesham Pacheco MD Primary Care Provider +1- [phone] Allergies Active Allergy Reactions Criticality Noted Date [...] the change in size. Ultrasound: 02/27/2021 @ [facility] 3.9 x 1.3 x 1.2 cm [...] attack Father Joshua Heart disease Father Joshua [place] @ 55 Diabetes Half-Sister Other Half-Sister blood [...] age to complete this topic Care Teams Floor Person Relationship Specialty Start Date End Date Hesham Pacheco MD [address] [place] [address] [place] [address] PCP - General Internal Medicine 03/11/21
== END 2024-09-04 16:45 | disposition home or self-care (01) ==
LOC: HO.HMCH 15:35
PROVIDERS: PCP Internal Medicine; Visit Provider Internal Medicine
DX: E78.00 Pure hypercholesterolemia, unspecified (principal); E04.1 Nontoxic single thyroid nodule; R73.01 Impaired fasting glucose; K21.9 Gastro-esophageal reflux disease without esophagitis; M48.061 Spinal stenosis, lumbar region without neurogenic claudication; M16.11 Unilateral primary osteoarthritis, right hip; M17.0 Bilateral primary osteoarthritis of knee; J30.9 Allergic rhinitis, unspecified; F41.9 Anxiety disorder, unspecified; E66.3 Overweight

== ENCOUNTER → 2024-09-04 15:35 | Outpatient (BNVA) | payer MEDICARE, SELFPAY | PROVIDERS: PCP Internal Medicine; Visit Provider Internal Medicine | DX: E03.9 Hypothyroidism, unspecified (principal); M16.11 Unilateral primary osteoarthritis, right hip; E78.00 Pure hypercholesterolemia, unspecified; E04.1 Nontoxic single thyroid nodule; R73.01 Impaired fasting glucose; K21.9 Gastro-esophageal reflux disease without esophagitis; M48.061 Spinal stenosis, lumbar region without neurogenic claudication; M17.0 Bilateral primary osteoarthritis of knee; J30.9 Allergic rhinitis, unspecified; F41.9 Anxiety disorder, unspecified; E66.3 Overweight; R30.0 Dysuria; E55.9 Vitamin D deficiency, unspecified; D64.9 Anemia, unspecified; S39.012A Strain of muscle, fascia and tendon of lower back, initial encounter; X58.XXXA Exposure to other specified factors, initial encounter; Y93.9 Activity, unspecified; Y92.9 Unspecified place or not applicable; Y99.9 Unspecified external cause status; Z68.26 Body mass index [BMI] 26.0-26.9, adult | CPT/HCPCS: 96127; 99212 ==

== ENCOUNTER → 2024-10-30 18:57 | Outpatient (BNV) | payer MEDICARE, SELFPAY | PROVIDERS: PCP Internal Medicine; Visit Provider Radiology Diagnostic Radiology | DX: M16.11 Unilateral primary osteoarthritis, right hip (principal) | CPT/HCPCS: 73721 ==

== ENCOUNTER 2024-10-30 19:05 | Outpatient (REF) | payer MEDICARE, SELFPAY ==
--- NOTE | ~2024-10-30 | MR_ITS ---
CLINICAL HISTORY: M16.11 - Unilateral primary osteoarthritis, right hip --- Additional Notes or Speci al Instructions: c o worsening right hip pain MR right hip without gadolinium Comparison: None Findings: Severe right hip osteoarthritis with severe joint space narrowing. There is [id number] articulation of the femoral head in the acetabulum with moderate marrow edema on both sides of the joint. Diffuse cartilage thinning and loss most severe in the superior joint. Nondisplaced microfracture along the superior anterior acetabulum. Subchondral cyst of the femoral head measuring 1.3 x 1.2 cm. Bulky anterior osteophyte anterior to the femoral neck measuring 2.4 x 1.3 cm. There is labral degeneration with partial tear posteriorly. No joint effusion. Musculotendinous structures are intact. IMPRESSION: 1. Severe right hip osteoarthritis with [id number] articulation, moderate marrow edema, and nondisplaced microfracture of the superior anterior acetabulum. 2. Posterior labral degeneration with partial tear. This document has been electronically signed by: Jacob Zee MD on 10/31/2024 22:58:51
== END 2024-10-30 19:06 | disposition home or self-care (01) ==
LOC: HO.MRI 19:05
PROVIDERS: PCP Internal Medicine; Visit Provider Internal Medicine
DX: M16.11 Unilateral primary osteoarthritis, right hip (principal)
CPT/HCPCS: 73721

== ENCOUNTER 2025-01-17 16:31 | Outpatient (AMB) | payer MEDICARE, SELFPAY ==
--- OUTSIDE RECORDS SUMMARY | 2025-01-12 10:30 | XMS_ITS | Encounter Summary ---
Author Organization [facility] Address [address] [place] [address] Care Team Providers Care Journeyman Molder Name Role Phone Hesham Pacheco MD Primary Care Provider [phone] Reason for Referral * Orthopedic (Routine) - Pending Review Specialty Diagnoses / Procedures Referred By Contac t Referred To Contact Orthopedic Surgery / Orthopaedic Surgery Diagnoses Primary osteoarthritis of both knees Procedures L Inj/Asp: bilateral knee Lauren Cobb MD [address] [address] Phone: tel: fax: Referral ID Status Reason Start Date Expiration Date V isits Requested Visits Authorized [id number] Pending Review 01/12/2025 01/12/2026 1 1 Reason for Visit * Reason Comments Follow-up Bilateral hip pain Encounter Details Date Type Department Care Team (Latest Contact Info) Description 01/12/2025 10:30 AM EDT Office Visit Orthopedic Surgery - [place] [address] [phone] Lauren Cobb MD [address] [place] [phone] Primary osteoarthritis of both knees (Primary Dx) Social History Tobacco Use Types Packs/Day Years Used Date Smoking Tobacco: Former Cigarettes Smokeless Tobacco: Never Alcohol Use Standard Drinks/Week [...] Orientation Straight 03/28/2024 11 :02 AM EST documented as of this encounter Last Filed Vital Signs Vital Sign Reading Time Taken Comments Blood Pressure - - Pulse - - Temperature - - Respiratory Rate - - Oxygen Saturation - - Inhaled Oxygen Concentration - - Weight 77.6 kg (171 lb) 01/12/2025 10:23 AM EDT Height 170.2 cm (5' 7.01 ) 01/12/2025 10:23 AM E DT Body Mass Index 26.78 01/12/2025 10:23 AM EDT documented in this encounter Progress Notes * Lauren Cobb MD - 01/12/2025 10:30 AM EDTAssociated Order(s): L Inj/Asp: bilateral knee Post-Procedure Diagnose(s): Primary osteoarthritis of both knees Kristen Reese CC: Chief Complaint Patient presents with Follow-up Bilateral hip pain HPI: Mrs Reese to follow-up with bilateral knee pain. She was seen in September for pain related to severe bilateral knee osteoarthritis. She had corticosteroid injections and she reports that she had significant pain relief with these. Currently she is having a lot of pain from her sciatica as well as her severe right knee osteoarthritis. She is planning to have hip replacement surgery in early February. Currently she is helping her recover from a knee replacement. She states the knees have started to bother her again and she notes increased pain and crepitus when trying to go downstairs. She is a little nervous about falling. ROS: Constitutional: no fever Musculoskeletal: see HPI Skin: no rash Neurologic: negative for headache, dizziness The remainder of the systems is noncontributory PMH: Patient Active Problem List Diagnosis Date Noted Primary osteoarthritis of right hip 10/26/2024 PONV (postoperative nausea and vomiting) 03/28/2024 Hypothyroidism 03/28/2024 Gastroesophageal reflux disease 03/28/2024 Lumbar spondylosis 02/18/2024 Thyroid nodule 03/11/2021 Foreign body granuloma of skin 01/21/2021 Skin lesion of hand 01/21/2021 PSH: Past Surgical History: Procedure Laterality Date APPENDECTOMY BACK SURGERY 03/28/2024 Right L5-S1 minimally invasive decompression, Dr. Ascencio EYE SURGERY LUMBAR LAMINECTOMY 11/29/2015 s/p L2-3, L3-4-5 decompression, Dr. Ascencio OTHER SURGICAL HISTORY SHOULDER SURGERY THYROID SURGERY TRIGGER FINGER RELEASE Medications: Current Outpatient Medications: acetaminophen (TYLENOL 8 HOUR) 650 mg 8 hr tablet, Take 1 tablet (650 mg total) by mouth every 8 (eight) hours if needed for mild pain. Do not crush, chew, or split., Disp: , Rfl: aspirin 81 mg EC tablet, Take 1 tablet (81 mg total) by mouth 1 (one) time each day., Disp: , Rfl: cholecalciferol (VITAMIN D-3) 50 mcg (2,000 unit) tablet, Take 1 tablet (2,000 Units total) by mouth., Disp: , Rfl: cyanocobalamin (VITAMIN B-12) 1,000 mcg tablet, Take 1 tablet (1,000 mcg total) by mouth 1 (one) time each day., Disp: , Rfl: docusate sodium (COLACE) 100 mg capsule, Take 1 capsule (100 mg total) by mouth 2 (two) times a day., Disp: , Rfl: gabapentin (NEURONTIN) 100 mg capsule, Take 1 capsule (100 mg total) by mouth 3 (three) times a day., Disp: , Rfl: levothyroxine (SYNTHROID, LEVOTHROID) 112 mcg tablet, Take 1 tablet (112 mcg total) by mouth 1 (one) time each day., Disp: , Rfl: magnesium oxide (MAG-OX) 400 mg magnesium tablet, Take 1 tablet (400 mg total) by mouth 1 (one) time each day., Disp: , Rfl: magnesium oxide-Mg AA chelate (Magnesium, oxide/AA chelate,) 300 mg capsule, Take 300 mg by mouth.,Disp: , Rfl: omeprazole (PriLOSEC) [address] capsule, Take 1 capsule (20 mg total) by mouth., Disp: , Rfl: Allergies: Allergies Allergen Reactions Adhesive Tape-Silicones Wound Skin peels off Latex Wound Oxycodone-Acetaminophen Nausea And Vomiting TOLERATES TYLENOL Meperidine Hcl SHx: Social History Tobacco Use Smoking status: Former Types: Cigarettes Smokeless tobacco: Never Substance Use Topics Alcohol use: Never FHx: No family history on file. Physical Exam: Visit Vitals Ht 1.702 m (67.01 ) Wt 77.6 kg (171 lb) BMI 26.78 kg/m?? Smoking Status Former BSA 1.89 m?? Gen: No acute distress. Pleasant Eyes: PERRL, EOMI ENT: Mucous membranes moist Resp:Normal respiratory effort Lymphatics: No noted lymphadenopathy MSK: Knee Exam: Bilat Inspection: No genu varus or valgus noted. 1+ effusion. Normal gait. . Palpations: mild joint line tenderness to palpation. . MCL: nl. LCL: nl. Distal ITB: nl. Patella tendon: nl. Pes Anserine: tendons: nl, bursa: nl. Strength: 5/5. ROM-0-90 . Varus stress at 20 degree and full extension - nl. Valgus stress at at 20 degree and full extension - nl. Neurovascular: Sensation to light touch: Intact and symmetric. DTR: Intact and symmetric. Peripheral pulses: Intact and symmetric. Cap. Refill: brisk. Radiographic/Imaging: : 3 weightbearing views of the bilateral knees were obtained and reviewed. There is severe medial compartment joint space loss bilaterally with [id number] contact significant subchondral sclerosis and medial joint line spurring. No evidence of fracture, osteochondral lesion or acute bony abnormality is noted. All images are stored and permanently retrievable Assessment: 1) right knee osteoarthritis: Severe medial compartment 2) left knee osteoarthritis severe medial compartment I reviewed risks and benefits of repeated corticosteroid injections. She understands that repeated corticosteroid injections can worsen arthritis and carry risks including bleeding, infection and increase in pain. I also discussed that pain relief may decrease with subsequent steroid injections. She understands but would like to proceed with injections to help reduce her pain. L Inj/Asp: bilateral knee Indications: pain Details: 22 G needle, anterolateral approach Medications (Right): 3 mL lidocaine 1 %; 40 mg triamcinolone acetonide 40 mg/mL Medications (Left): 3 mL lidocaine 1 %; 40 mg triamcinolone acetonide 40 mg/mL Outcome: tolerated well, no immediate complications Informed Consent: Laterality: Bilateral Relevant images/test results available and reviewed: yes Health status cleared: Yes Procedure/treatment, purpose, treatment alternatives, risks/potential complications and benefits explained: yes Risk/complications/benefits details: Risks include bleeding, infection, increase in pain Patient questions answered: yes Patient agrees, verbalizes understanding, and wants to proceed: yes Consent given by: Patient Informed consent discussion completed by Physician/CUCO with patient: Verbal Pre-procedure timeout performed: yes Plan: 1) Advised to take it easy for the next 24 to 48 hours. 2) May ice and use Tylenol or NSAIDs for postinjection soreness 3) Advised to call the office for any severe increase in pain, redness, swelling or bruising. 4) follow-up as needed Significant amount of additional work done and reevaluation of this patient including reviewing medical records, x-rays and prolonged discussion about risks of repeated corticosteroid injections. All of the patient's questions were answered. The patient understand and feels comfortable with thecurrent care plan. Thanks for allowing me to be a part of the patient's care team! Please feel free to contact me for any reason. Sincerely, Lauren Cobb MD. ON 01/12/2025 at 1:12 PM EDT documented in this encounter Plan of Treatment Upcoming Encounters Date Type Department Care Team (Latest Contact Info) Description 03/07/2025 11:00 AM EDT Consult Orthopedic Surgery - [place] [address] [phone] Cari Nair NP [address] [address] 03/20/2025 7:30 AM EDT Hospital Encounter [facility] [place] [address] [place] [phone] Nils Calixto MD [address] [place] [phone] 03/20/2025 7:30 AM EDT - 03/20/2025 10:30 AM EDT Surgery [address] [phone] Nils Calixto MD [address] [place] [address] RIGHT TOTAL HIP ARTHROPLASTY [[id number] (CPT )] 04/04/2025 11:30 AM EST Office Visit Orthopedic Surgery - [address] [place] [phone] Nils Calixto MD [address] [place] [phone] Scheduled Procedures Name Priority Associated Diagnoses Date/Ti me ARTHROPLASTY HIP TOTAL Primary osteoarthritis of right hip 03/20/2025 7:30 AM EDT documented as of this encounter Procedures Procedure Name Priority Date/Time Associated Diagnosis Comments SD ARTHROCENTESIS/ASP IRATION/INJECTION MAJOR JOINT/BURSA W/O U/S GUIDANCE Routine 01/12/2025 10:30 AM EDT Primary osteoarthritis of both knees documented in this encounter Results * SD ARTHROCENTESIS/ASPIRATION/INJECTION MAJOR JOINT/BURSA W/O U/S GUIDANCE (01/12/2025 10:30 AM EDT) Narrative Lauren Cobb MD - 01/12/2025 10:30 AM EDT Lauren Cobb MD 01/12/2025 1:18 PM L Inj/Asp: bilateral knee Indications: pain Details: 22 G needle, anterolateral approach Medications (Right): 3 mL lidocaine 1 %; 40 mg triamcinolone acetonide 40 mg/mL Medications (Left): 3 mL lidocaine 1 %; 40 mg triamcinolone acetonide 40 mg/mL Outcome: tolerated well, no immediate complications Informed Consent: Laterality: Bilateral Relevant images/test results available and reviewed: yes Health status cleared: Yes Procedure/treatment, purpose, treatment alternatives, risks/potential complications and benefits explained: yes Risk/complications/benefits details: Risks include bleeding, infection, increase in pain Patient questions answered: yes Patient agrees, verbalizes understanding, and wants to proceed: yes Consent given by: Patient Informed consent discussion completed by Physician/CUCO with patient: Verbal Pre-procedure timeout performed: yes us Lauren Cobb MD IN CLINIC/BEDSIDE ORDERABLES F inal Result documented in this encounter Visit Diagnoses Diagnosis Primary osteoarthritis of right hip- Primary Primary osteoarthritis of both knees- Primary Primary osteoarthritis of right hip documented in this encounter Administered Medications Inactive Administered Medications - up to 3 most recent administrations Medication Order MAR Action Action Date Dose Rate Site lidocaine (XYLOCAINE) 1 % injection 3 mL 3 mL, injection, Once PRN Procedure, Starting on Wed01/12/25 at 1030, For 1 doseIndications:Primary osteoarthritis of both knees Given 01/12/2025 10:30 AM EDT 3 mL lidocaine (XYLOCAINE) 1 % injection 3 mL 3 mL, injection, Once PRN Procedure, Starting on Wed01/12/25 at 1030, For 1 doseIndications:Primary osteoarthritis of both knees Given 01/12/2025 10:30 AM EDT 3 mL triamcinolone acetonide (KENALOG-40) 40 mg/mL injection 40 mg 40 mg, intra-articular, Once PRN Procedure, Starting on Wed01/12/25 at 1030, For 1 doseIndications:Primary osteoarthritis of both knees Given 01/12/2025 10:30 AM EDT 40 mg triamcinolone acetonide (KENALOG-40) 40 mg/mL injection 40 mg 40 mg, intra-articular, Once PRN Procedure, Starting on Wed01/12/25 at 1030, For 1 doseIndications:Primary osteoarthritis of both knees Given 01/12/2025 10:30 AM EDT 40 mg documented in this encounter Care Teams Journeyman Molder Relationship Specialty Start Date End Date Hesham Pacheco MD [address] [place] [address] [address] Myers PCP - General Internal Medicine 11/19/20 documented as of this encounter
--- NOTE | 2025-01-17 16:27 | A.OFFPC_ITS ---
Intake Visit Reasons: Abdominal pain Allergies adhesive tape (ADHESIVE TAPE) Allergy (Severe, Verified 01/17/25 16:59) PEELS SKIN OFF acetaminophen (From DARVOCET-N 100) Allergy (Intermediate, Verified 01/17/25 16:59) VOMITTING Darvocet A500 Allergy (Unknown, Verified 01/17/25 16:59) vomiting oxycodone (Percocet) Allergy (Unknown, Verified 01/17/25 16:59) Unknown amoxicillin (Augmentin) Adverse Reaction (Unknown, Verified 01/17/25 16:59) stomach upset clavulanic acid (Augmentin) Adverse Reaction (Unknown, Verified 01/17/25 16:59) stomach upset From DEMEROL Allergy (Intermediate, Uncoded 01/17/25 16:59) VOMITTING ENVIRONMENTAL Allergy (Unknown, Uncoded 01/17/25 16:59) RHINITIS VICRYL SUTURES Allergy (Unknown, Uncoded 01/17/25 16:59) ITCHING Medication List - Last Reconciled 01/17/25 by Hesham Pacheco MD azelastine-fluticasone 137-50 mcg/spray (Dymista) 1 spray intranasal BID PRN 30 days celecoxib 200 mg PO DAILY cyclobenzaprine 10 mg PO TID PRN 30 days diclofenac sodium 1% 4 grams topical QID PRN 90 days gabapentin 100 mg PO TID 90 days lorazepam 0.5 mg PO BID PRN 30 days magnesium glycinate 360 mg PO .1 cap BID mupirocin 2% 1 appl topical TID 10 days omeprazole 20 mg PO DAILY 90 days suzetrigine (Journavx) 50 mg PO BID PRN 90 days Synthroid (levothyroxine) 125 mcg PO DAILY 90 days NS tramadol 50 mg PO BEDTIME PRN Tobacco use date assessed: 01/17/25 Fall risk assessment: No Falls in past year Last assessed Fall Risk: 01/17/25 Dental Screening Dental Screen Date: 01/17/25 Did you have a dental visit in the last 12 months?: Yes Did you have a dental problem in the last 6 months where you did not have access to dental care?: No Was dental information given to patient?: Patient has dentist HPI Abdominal pain HPI Details Patient's follow-up visit / consultation today is done over the phone - this is a Telehealth visit Patient's current medications have been reviewed and verified with patient and / or caregiver / proxy and have been updated accordingly in the medication list Patient states that she has been experiencing a persistent left lower quadrant abdominal pain for the past 3 weeks and notes recently that the pain would radiate around her left side and also straight inside into her left lower back area at times She recalls experiencing similar symptoms several years ago wherein she was eventually diagnosed with diverticulitis and she is concerned that she could be having another bout of diverticulitis at this time and is wondering if she should be sent for any scans or imaging studies to look into this further Reports that she has been experiencing increased constipation lately; states that her bowel habits used to be regular She also relates experiencing occasional symptoms of nausea recently that are relieved when she takes her Ondansetron Denies any vomiting or fever and states that she has not noticed any blood in her stool lately She denies any headaches or dizziness Denies any chest pains, no increased SOB PFSH Medical History Primary osteoarthritis of right hip Allergic rhinitis GERD (gastroesophageal reflux disease) Nontoxic uninodular goiter Overweight (BMI 25.0-29.9) Anxiety Primary osteoarthritis of both knees Right thyroid nodule Lumbar spinal stenosis Impaired fasting glucose Hypothyroidism Pure hypercholesterolemia Surgical History History of lobectomy of thyroid (~04/01/21) History of surgery Hx of hand surgery History of colonoscopy History of hand surgery Family History Other Family history non-contributory Social History Housing: House Alcohol intake: never Patient Tobacco Use Status: Former Tobacco user e-Cigarette/Vaping Use: Never Used Second Hand Smoke Exposure: Yes service: No Current occupational status: retired Cognitive needs: No Hearing needs: No Vision needs: Yes Questionnaire PHQ-9 Over the last 2 weeks, how often have you been bothered by any of the following problems? 1. Little interest or pleasure in doing things: not at all 2. Feeling down, depressed, or hopeless: not at all 3. Trouble falling or staying asleep, or sleeping too much: not at all 4. Feeling tired or having little energy: not at all 5. Poor appetite or overeating: not at all 6. Feeling bad about yourself - or that you are a failure or have let yourself or your family down: not at all 7. Trouble concentrating on things, such as reading the newspaper or watching television: not at all 8. Moving or speaking so slowly that other people could have noticed. Or the opposite - being so fidgety or restless that you have been moving around a lot more than usual: not at all 9. Thoughts that you would be better off or of hurting yourself in some way: not at all Total score: 0 Depression Screening Interpretation: Negative Depression Screening Done: Yes [address]369 - PHQ-9 Billing: Yes Source: Developed by Drs. Kai Sy, Ariana Singh, Orlando Senior and colleagues, with an educational shelia from [email or web address]. Thrive Questionnaire Date Thrive assessed: 09/04/24 I am a: Patient What is your living situation today?: I have a steady place to live Within the past 12 months, did the food you bought not last and you didn't have the money to get more?: Never true Within the past 12 months, did you worry whether your food would run out before you got money to buy more?: Never true Do you have trouble paying for medicines?: No Do you have trouble getting transportation to medical appointments?: No Do you have trouble paying your heating and electricity bill?: No Do you have trouble taking care of your child, family member or friend?: No Do you have trouble with day-to-day activities such as bathing, preparing meals, shopping, managing finances, etc.?: No Are you currently unemployed and looking for a job?: No Are you interested in more education?: No Please select the resources that you would like help with: None Currently or been in a relationship where the following occur: No concerns reported THRIVE Score: 0 AUDIT C Alcohol Use Questionnaire (AUDIT-C) 1. How often do you have a drink containing alcohol?: Never 3. How often do you have six or more drinks on one occasion?: Never Total Score: 0 Score Reviewed/Action Taken: Yes GINO-7 AMB Questionnaire GINO-7 Date GINO - 7 assessed: 09/04/24 Feeling nervous, anxious, or on edge: 0 = Not at all Not being able to stop or control worryin = Not at all Worrying too much about different things: 0 = Not at all Trouble relaxin = Not at all Being so restless that it is hard to sit still: 0 = Not at all Becoming easily annoyed or irritable: 0 = Not at all Feeling afraid as if something awful might happen: 0 = Not at all Total GINO-7 score (0-4 normal; 5-9 mild; 10-14 moderate; 15-21 severe): 0 Source: Developed by Drs. Kai Sy, Ariana Singh, Orlando Senior and colleagues, with an educational shelia from [employer]. Review of Systems Const Denies chills, Denies fatigue, Denies fever(s) and Denies headache(s) ENT Denies dysphagia, Denies dizziness, Denies headache(s), Denies neck pain, Denies odynophagia and Denies sore throat Card Denies chest pain, Denies palpitations and Denies dyspnea Resp Denies chest congestion, Denies cough and Denies dyspnea GI Reports abdominal pain (over the LLQ - see HPI), Denies hematochezia, Reports constipation (increased lately), Denies dysphagia, Denies heartburn, Denies diarrhea, Reports nausea (occasional), Denies odynophagia and Denies vomiting Denies difficulty voiding, Denies nocturia, Denies dysuria and Denies urinary urgency Musc Denies back pain and Denies neck pain Skin/Breast Denies rash Neuro Denies dizziness and Denies headache(s) Endo Denies fatigue and Denies palpitations Physical exam (Primary Care) Vital Signs: Physical examination is not performed as visit / consultation today is done over the phone - Telehealth visit All physical findings indicated here, if present, are as per patient's and / or caregivers / proxy's report Tobacco/Smoking Status: Tobacco use Status Tobacco use date assessed 01/17/25 01/17/25 16:30 Patient Tobacco Use Status Former Tobacco user 01/17/25 16:30 e-Cigarette/Vaping Use Never Used 01/17/25 16:30 PHQ-9: PHQ-9 Score PHQ-9: Total score 0 01/17/25 17:03 Depression Screening Interpretation: Negative Thrive Assessment: Date of Thrive Assessment Date Thrive assessed 09/04/24 01/17/25 16:30 Currently or been in a relationship where the following occur: No concerns reported Telehealth Telehealth Telehealth Platform: Telephone Location of provider rendering services: practice address Location of patient: address on file Patient Identification confirmed using: Name, : Yes Telehealth method: voice only Patient verbally consented to treatment: Yes Patient verbally consented to billing insurance company: Yes Patient informed of any privacy concerns related to visit: Yes Minutes spent on Phone/Video with Pt.: 19 Coding Level of Care Code Tele Est Pt Level 4 (15404) Diagnoses Left lower quadrant abdominal pain R10.32 Additional Codes PHQ-9 - 93292 - PHQ-9 Billing: Yes ([id number]) Assessment & Plan Assessment & Plan (1) Left lower quadrant abdominal pain: Code(s): R10.32 - Left lower quadrant pain Category: Medical Plan: Patient is looking to see if she can have some imaging studies like a CT or son ogram done to check her for diverticulitis Have advised her that as her symptoms have been going on for about 3 weeks now and with the holiday weekend coming up, it will not be realistic to order the tests and wait for the results as they will not likely be scheduled before the long weekend I have advised her that at this time, considering the situation, it would be more practical to just treat her empirically for diverticulitis and if she does not respond to Tx, then we can certainly order some urgent imaging studies for her to look into her problems further Will go ahead and start her empirically on oral Cipro 500 mg BID x 7 days She also asked for Fluconazole, which she will take after her Abx is completed as she almost always ends up with Abx-induced vaginal yeast infection whenever s he is prescribed antibiotics I have emphasized to patient that she is to let us know ELIAN if she does not respond at all to the Abx over the next few days and if she starts experiencing any untoward side effects from the prescribed Abx, she is to stop taking it and inform us right away as well Plan Follow up as scheduled next month Medications: New ciprofloxacin HCl 500 mg PO BID 14 tabs 0RF diverticulitis 7 days fluconazole may repeat second dose 72 hrs after first dose if symptoms persist; TO BE TAKEN AFTER FINISHING PRESCRIBED Antibiotics 150 mg PO ONCE 2 tabs 0RF 2 doses
--- OUTSIDE RECORDS SUMMARY | 2025-01-17 17:08 | XMS_ITS | Clinical Summary ---
Author Organization [facility] Address [address] [place] [address] Care Team Providers Care Lamination Operator Name Role Phone Hesham Pacheco MD Primary Care Provider +1- [phone] Allergies Active Allergy Reactions Criticality Noted Date Comments Adhesives/Tape Other (See Comments) 03/12/2021 Skin peels off Amoxicillin-Pot Clavulanate Other (See Comments) 03/12/2021 GI upset Meperidine GI Intolerance/Nausea/Vo miting Low 03/11/2021 Latex Other (See Comments) 03/11/2021 Skin falls off Other Itching Low 03/12/2021 VICRYL SUTURES Oxycodone-Acetaminophen GI Intolerance/Nausea/Vo miting Low 03/11/2021 Medications Levothyroxine Sodium (SYNTHROID PO) Take 112 mcg by mouth daily. BRAND NAME ONLY Active OMEprazole (PriLOSEC) 20 MG capsule Take 1 capsule (20 mg total) by mouth nightly as needed. Takes PRN Active Azelastine-Flut icasone (Dymista) 137-50 MCG/ACT Suspension into each nostril 2 (two) times a day. Active celeCOXIB (CeleBREX) 200 MG capsuleIndicati ons:Thyroid nodule Take 1 capsule (200 mg total) by mouth daily as needed for mild pain. Do not start before April 04, 2021. Active diclofenac (VOLTAREN) 1 % gelIndications: Thyroid nodule Apply topically 4 (four) times a day. Use dosing card to measure dose. Apply to entire affect area. Do not start before April 04, 2021. Active Vitamin D3 (CHOLECALCIFERO L) 50 MCG (1999) tablet Take 1 tablet (2,000 Units total) [...] the change in size. Ultrasound: 02/27/2021 @ [facility] 3.9 x 1.3 x 1.2 cm [...] attack Father Joshua Heart disease Father Joshua [place] @ 55 Diabetes Half-Sister Other Half-Sister blood [...] more drinks on one occasion? Never 12/11/2022 Comments No Sex and Gender Information Value Date Recorded Sex Assigned at Not on file Legal Sex Female 7:57 AM EDT Gender Identity Not on file Sexual Orientation Not on file Last Filed Vital Signs Vital Sign Reading Time Taken Comments Blood Pressure 174/74 12/17/2022 11:40 AM EDT Pulse 59 12/17/2022 11:45 AM EDT Temperature 36.3 C (97.3 F) 12/17/2022 9:33 AM EDT Respiratory Rate 15 12/17/2022 11:40 AM EDT [...] 1950 DTaP/Tdap/Td Vaccines (1 - Tdap) 1967 Pneumococcal Vaccines 50+ (1 of 1 - PCV) 1998 Zoster (Shingles) Vaccine (1 of 2) 1998 DXA Bone Density (Females,Ag es 65 and older) 2013 RSV Vaccine 60 years and old er and Patients (1 - 1-dose 75+ series) 2023 COVID-19 Vaccine ( - 2023-2 5 season) 2024 Influenza Vaccine 12/22/2024 Colonoscopy Discontinued 12/17/2022 Hepatitis B Vaccines Aged Out No long er eligible based on patient's age to complete this topic Insurance MEDICARE PART A & B [facility] [place] [place] COMMERCIAL MEDICARE Care Teams Lamination Operator Relationship Specialty Start Date End Date Hesham Pacheco MD [address] [place] [address] [place] [address] PCP - General Internal Medicine 03/11/21
--- OUTSIDE RECORDS SUMMARY | 2025-01-17 17:08 | XMS_ITS | Encounter Summary ---
Author Organization [facility] Address [address] [place] [address] Care Team Providers Care Net Development Manager Name Role Phone Hesham Pacheco MD Primary Care Provider +1- [phone] Encounter Details Date Type Department Care Team (Late st Contact Info) Description 03/17/2021 Scanned Document [facility] Surgical Oncology [address] [address] Elda Mckee MD [address] [place] [address] 3 [place] [address] Social History Tobacco Use Types Packs/Day Years Used Date Smoking Tobacco: Former Cigarettes 2008 Smokeless Tobacco: Never Alcohol Use Standard Drinks/Week Comments Never 0 (1 standard drink = 0.6 oz pur e alcohol) Comments Unknown Sex and Gender Information Value [...] on filedocumented in this encounter Care Teams Net Development Manager Relationship Specialty Start Date End Date Hesham Pacheco MD [address] [place] [address] [place] [address] PCP - General Internal Medicine 03/11/21 documented as of this encounter
--- OUTSIDE RECORDS SUMMARY | 2025-01-17 17:08 | XMS_ITS | Patient Health Record ---
Author Organization [facility] Address [address] [place] [address] Care Team Providers Care Utility Maintenance Worker Name Role Phone Po Raeann CORONA Primary Care Provider Kai Shepherd [phone] Reason For Referral No Information Plan Of Treatment No Information Insurance Providers Payer Name Payer Address Payer Phone Subscriber Number Group Number Insured Name Patient Relationship to Insured Coverage Start Date Coverage End Date [facility] [address] [place] [address] [id number] JACKELINE WILKS Self - patient is the insured
--- OUTSIDE RECORDS SUMMARY | 2025-01-17 17:09 | XMS_ITS | Clinical Summary ---
Author Organization [facility] Address [address] [place] [address] Phone Care Team Providers Care Copy Director Name Role Phone Hesham Pacheco MD Primary Care Provider [phone] Allergies Active Allergy Reactions Criticality Noted Date Comments Adhesive Tape-Silicones Wound Medium 03/12/2021 Skin peels off Latex Wound Medium 11/22/2020 Meperidine Hcl 11/22/2020 Oxycodone-Acetaminophe n Nausea And Vomiting Medium 11/22/2020 TOLERATES TYLENOL Medications aspirin 81 mg EC tablet Take [...] mouth 1 (one) time each day. Active acetaminophen (TYLENOL 8 HOUR) 650 mg 8 hr tablet Take 1 tablet (650 mg total) by mouth every 8 (eight) hours if needed for mild pain. Do not crush, chew, or split. Active Hospital, Clinic, or Other Facility Administered Medication Ordered Dose Route Frequency Start Date End Date Status lidocaine (XYLOCAINE) 1 % injection 3 mLIndications:Primary osteoarthritis of both knees 3 mL inj Once PRN Procedure 01/12/2025 01/12/2025 Ended lidocaine (XYLOCAINE) 1 % injection 3 mLIndications:Primary osteoarthritis of both knees 3 mL inj Once PRN Procedure 01/12/2025 01/12/2025 Ended triamcinolone acetonide (KENALOG-40) 40 mg/mL injection 40 mgIndications:Primary osteoarthritis of both knees 40 mg IAtc Once PRN Procedure 01/12/2025 01/12/2025 Ended triamcinolone acetonide (KENALOG-40) 40 mg/mL injection 40 mgIndications:Primary osteoarthritis of both knees 40 mg IAtc Once PRN Procedure 01/12/2025 01/12/2025 Ended Active Problems Problem Noted Date Diagnosed Date Primary osteoarthritis of right hip 10/26/2024 PONV (postoperative nausea and vomiting) 024 Hypothyroidism [...] Patient had lumbar spine x-ray 02/08/2024 at [facility] [place] [place] with multilevel degenerative disc disease, most advanced at L5-S1 with multilevel bilateral facet arthropathy. Radiologist states similar when compared to prior CT abdomen pelvis 03/04/2023. She also had right hip x-ray that showed severe right hip OA. Radiologist states similar when compared to CT abdomen 03/04/2023. I reviewed the images with the patient. Ms. Wilks has right low back pain, pain down [...] & Plan (05/26/2024 11:14 AM EST): Ms. Wilks is doing quite well since the decompression [...] pain and not requiring pain meds. Ms. Wilks is doing well postop, will follow-up in [address] Ascencio. All postop questions answered. She should hopefully continue to note improvement as the nerve heals. Thyroid nodule 03/11/2021 Overview (03/10/2024): 70 y.o. female with nontoxic right thyroid nodule. Patient stated she does not want a biopsy, she just wants it out due to the change in size. Ultrasound: 02/27/2021 @ [facility] 3.9 x 1.3 x 1.2 cm [...] skin 01/21/2021 Skin lesion of hand 01/21/2021 Encounters Date Type Department Care Team Description 01/12/2025 10:30 AM EDT Office Visit Orthopedic Surgery [facility] 160 175 [facility] [place] 160 [place] [phone] Lauren Cobb MD Primary osteoarthritis of both knees (Primary Dx) 10/30/2024 Telephone Orthopedic Surgery [facility] 250 175 [facility] [place] 250 [place] [phone] Rosetta Reese ID 10/27/2024 Telephone Neurosurgery [place] 175 [facility] [place] 300 [place] [phone] Sonia Triana ID 10/26/2024 10:00 AM EDT Office Visit [facility] 250 175 [facility] [place] 250 [place] [phone] Nils Calixto MD Primary osteoarthritis of right hip (Primary Dx); Primary osteoarthritis of both knees; Lumbar back pain with radiculopathy affecting right lower extremity; Scoliosis of lumbar spine, unspecified scoliosis type; Lower limb length difference from Last 3 Months Immunizations Name Administration Dates Next Due Influenza [...] and vomiting) Pneumonia Hypothyroidism Diverticulosis Neuromuscular disorder ([facility] V24, [facility] V28 ) Joint pain Arthritis Sciatica Social [...] 61 03/28/2024 10:14 AM EST Temperature 36.4 C (97.5 F) 03/28/2024 10:14 AM EST Respiratory Rate 16 03/28/2024 10:00 AM EST Oxygen Saturation 94% 03/28/2024 10:14 AM EST Inhaled Oxygen Concentration - - Weight 77.6 kg (171 lb) 01/12/2025 10:23 AM EDT Height 170.2 cm (5' 7.01 ) 01/12/2025 10:23 AM E DT Body Mass Index 26.78 01/12/2025 10:23 AM EDT Plan of Treatment Upcoming Encounters Date Type Department Care Team (Latest Contact Info) Description 03/07/2025 11:00 AM EDT Consult Orthopedic Surgery - [place] [address] [facility] [address] [place] [phone] Cari Nair NP 175 [facility] Angel [address] [place] [address] 03/20/2025 7:30 AM EDT Hospital Encounter [facility] Main [place] [address] [place] [phone] Nils Calixto MD [address] [place] [address] 03/20/2025 7:30 AM EDT - 03/20/2025 10:30 AM EDT Surgery [facility] Main OR [address] [place] [phone] Nils Calixto MD [address] [place] [address] RIGHT TOTAL HIP ARTHROPLASTY [45258 (CPT )] 04/04/2025 11:30 AM EST Office Visit Orthopedic Surgery - [place] [address] [place] [phone] Nils Calixto MD [address] [place] [address] Scheduled Procedures Name Priority Associated Diagnoses Date/Ti me ARTHROPLASTY HIP TOTAL Primary osteoarthritis of right hip 03/20/2025 7:30 AM EDT Health Maintenance Due Date Last Done Comments Zoster Vaccines (2 of 3) 07/19/2014 05/24/2014 DTaP,Tdap,and Td Vaccines (1 - Tdap) 09/29/2015 09/28/2015 Hepatitis C Screening 04/26/2022 Medicare Annual Wellness Visit 04/26/2022 Osteoporosis Screening (Bone Density Screening) 04/26/2022 Social Influencers of Health Screening 04/26/2022 RSV Immunization Adult Patients (1 - 1-dose 75+ series) 2023 Depression Screening 05/24/2024 COVID-19 Vaccine (2023- season) 2024 02/05/2024, 02/13/2023, 02/08/2022, Additional history exists Influenza Vaccine (#1) 2025 , 02/23/2019, 03/16/2018, Additional history exists Falls Risk Assessment 03/28/2025 03/28/2024 Pneumococcal Vaccine: 50+ Years Completed 02/25/2017, 02/15/2017 Colorectal Cancer Screening: FIT-DNA (Cologuard) Discontinued 11/17/2022, 11/17/2022, 12/14/2018 HIB Vaccines Aged Out No longer eligi [...] this topic Medical Devices Implanted Type Area Accounts Payable Payroll Coordinator Device Identifier Shelf Expiration Date Model / Serial / Lot Opthalmology Implants Opthalmology Implants Bilater al: Eye Procedures Procedure Name Priority Date/Time Associated Diagnosis Comments MT ARTHROCENTESIS/ASP IRATION/INJECTION MAJOR JOINT/BURSA W/O U/S GUIDANCE Routine 01/12/2025 10:30 AM EDT Primary osteoarthritis of both knees from Last 3 Months Results * MT ARTHROCENTESIS/ASPIRATION/INJECTION MAJOR JOINT/BURSA W/O U/S GUIDANCE (01/12/2025 [...] MD IN CLINIC/BEDSIDE ORDERABLES F inal Result from Last 3 Months Insurance [facility] MEDICARE ADVANTAGE Care Teams Copy Director Relationship Specialty Start Date End Date Hesham Pacheco MD [address] [place] [address] Dr Carreno [address] DINA Myers PCP - General Internal Medicine 11/19/20
--- OUTSIDE RECORDS SUMMARY | 2025-01-17 17:09 | XMS_ITS | Encounter Summary ---
Author Organization [facility] Address [address] [place] [address] Care Team Providers Care Political Analyst Name Role Phone Hesham Pacheco MD Primary Care Provider +1- [phone] Encounter Details Date Type Department Care Team (Late st Contact Info) Description 03/27/2021 Scanned Document [facility] PRIMARY CARE SCAN Hesham Pacheco MD [address] [place] [address] [place] [address] Social History Tobacco Use Types Packs/Day Years [...] on filedocumented in this encounter Care Teams Political Analyst Relationship Specialty Start Date End Date Hesham Pacheco MD [address] [place] [address] [place] [address] PCP - General Internal Medicine 03/11/21 documented as of this encounter
== END 2025-01-17 17:23 | disposition home or self-care (01) ==
LOC: HO.HMCH 16:31
PROVIDERS: PCP Internal Medicine; Visit Provider Internal Medicine
DX: R10.32 Left lower quadrant pain (principal)

== ENCOUNTER → 2025-01-17 16:31 | Outpatient (BNVA) | payer MEDICARE, SELFPAY | PROVIDERS: PCP Internal Medicine; Visit Provider Internal Medicine | DX: R10.32 Left lower quadrant pain (principal); K59.00 Constipation, unspecified | CPT/HCPCS: 96127 ==

== ENCOUNTER 2025-02-08 08:03 | Outpatient (REF) | payer MEDICARE, SELFPAY ==
--- OUTSIDE RECORDS SUMMARY | 2025-02-08 08:17 | XMS_ITS | Encounter Summary ---
Author Organization [facility] Address [address] [place] [address] Care Team Providers Care Pipefitter Name Role Phone Hesham Pacheco MD Primary Care Provider +1- [phone] Encounter Details Date Type Department Care Team (Late st Contact Info) Description 03/17/[address] [facility] Surgical Oncology [address] [phone] Elda Mckee MD [address] [place] [address] 3 [place] [address] Social History Tobacco Use Types Packs/Day Years [...] on filedocumented in this encounter Care Teams Pipefitter Relationship Specialty Start Date End Date Hesham Pacheco MD [address] [place] [address] [place] [address] PCP - General Internal Medicine 03/11/21 documented as of this encounter
--- OUTSIDE RECORDS SUMMARY | 2025-02-08 08:17 | XMS_ITS | Clinical Summary ---
Author Organization [facility] Address [address] [place] [address] Care Team Providers Care Firer Portable Boiler Name Role Phone Hesham Pacheco MD Primary Care Provider +1- [phone] Allergies Active Allergy Reactions Criticality Noted Date [...] the change in size. Ultrasound: 02/27/2021 @ [facility] 3.9 x 1.3 x 1.2 cm right [...] attack Father Joshua Heart disease Father Joshua MD @ 55 Diabetes Half-Sister Other Half-Sister blood [...] Health Maintenance Due Date Last Done Comments Advance Care Planning 1950 Hepatitis C Virus Screening 1950 DTaP/Tdap/Td Vaccines (1 - Tdap) 1967 Pneumococcal Vaccines 50+ (1 of 1 - PCV) 1998 Zoster (Shingles) Vaccine (1 of 2) 1998 DXA Bone Density (Females,Ag es 65 and older) 2013 RSV Vaccine 60 years and old er and Patients (1 - 1-dose 75+ series) 2023 Influenza Vaccine 12/22/2024 COVID-19 Vaccine ( - 2023-2 5 season) 2025 Colonoscopy Discontinued 12/17/2022 Hepatitis B Vaccines Aged Out No long er eligible based on patient's age to complete this topic Insurance MEDICARE PART A & B [facility] COMMERCIAL MEDICARE Care Teams Firer Portable Boiler Relationship Specialty Start Date End Date Hesham Pacheco MD [address] [place] [address] [place] [address] PCP - General Internal Medicine 03/11/21
--- OUTSIDE RECORDS SUMMARY | 2025-02-08 08:17 | XMS_ITS | Patient Health Record ---
Author Organization [facility] Address [address] [place] [address] Care Team Providers Care Mortgage Loan Coordinator Name Role Phone Po Raeann CORONA Primary Care Provider Kai Shepherd [phone] Reason For Referral No Information Plan Of Treatment No Information Insurance Providers Payer Name Payer Address Payer Phone Subscriber Number Group Number Insured Name Patient Relationship to Insured Coverage Start Date Coverage End Date [facility] [address] [place] [address] [phone] [id number] JACKELINE WILKS Self - patient is the insured
--- OUTSIDE RECORDS SUMMARY | 2025-02-08 08:17 | XMS_ITS | Encounter Summary ---
Author Organization [facility] Address [address] [place] [address] Care Team Providers Care Esol Teacher Assistant Name Role Phone Hesham Pacheco MD Primary Care Provider +1- [phone] Encounter Details Date Type Department Care Team (Late st Contact Info) Description 03/27/2021 Scanned Document [facility] PRIMARY CARE SCAN Hesham Pacheco MD [address] [place] [address] [place] [address] Social History Tobacco Use Types Packs/Day Years [...] on filedocumented in this encounter Care Teams Esol Teacher Assistant Relationship Specialty Start Date End Date Hesham Pacheco MD [address] [place] [address] [place] [address] PCP - General Internal Medicine 03/11/21 documented as of this encounter
--- OUTSIDE RECORDS SUMMARY | 2025-02-08 08:17 | XMS_ITS ---
Author Name [facility] Organization Unknown History of Medication Use Medication Directions Dispensed Refills Start Date End Date Stat us celeCOXIB (CeleBREX) 200 MG capsule Take 1 capsule (200 mg total) by mouth daily as needed for mild pain. Do not start before April 04, 2021. 04/04/2021 active traMADol (ULTRAM) 50 MG tablet Take 1 tablet (50 mg total) by mouth 3 times daily (every 8 hours) as needed for moderate pain or severe pain. 04/01/2021 active Azelastine-Fluticaso ne (Dymista) 137-50 MCG/ACT Suspension into each nostril 2 (two) times a day. active OMEprazole (PriLOSEC) 20 MG capsule Take 1 capsule (20 mg total) by mouth nightly as needed. Takes PRN active Vitamin D3 (CHOLECALCIFEROL) 50 MCG (1999 UT) tablet Take 1 tablet (2,000 Units total) by mouth daily. active Allergies Allergen Reaction Severity Comment Documented Date Source Statu s OTHER ITCHING VICRYL SUTURES 03/12/2021 [facility] active OXYCODONE-ACETAMI NOPHEN GI INTOLERANCE/FABRICE SEA/VOMITING 03/11/2021 [facility] active LATEX OTHER (SEE COMMENTS) Skin falls off [facility] MEPERIDINE GI INTOLERANCE/FABRICE SEA/VOMITING [facility] Problems Problem Status Onset Date Problem Type Date of Resoluti on Source Screen for colon cancer active EncounterDiagnosisAct [facility] Thyroid nodule active 2021-03-[address] [facility] Encounters Encounter Type Encounter Reason Primary Diagnosis Location Date Ambulatory Encounter for screening for malignant neoplasm of colon [facility] 12/17/2022 Ambulatory Nontoxic single thyroid nodule [facility] 04/09/2021 Ambulatory Nontoxic single thyroid nodule [facility] 04/01/2021 Ambulatory [facility] 03/20/2021 Ambulatory Nontoxic single thyroid nodule [facility] 03/20/2021 Care Team Organization Name Specialty Phone Email Start Date End Da te [place] Use It Better [facility] MACK SAMS Primary Care 04/09/2021 [place] Use It Better [facility] MACK FLAQUITA [facility] Care 03/20/202104/09
--- OUTSIDE RECORDS SUMMARY | 2025-02-08 08:17 | XMS_ITS | Clinical Summary ---
Author Organization [facility] Address [address] [place] [address] Phone Care Team Providers Care Lead Pressman Roto [employer] Printing Name Role Phone Hesham Pacheco MD Primary [...] Patient had lumbar spine x-ray 02/08/2024 at [facility] with multilevel degenerative disc disease, most advanced [...] the change in size. Ultrasound: 02/27/2021 @ [facility] 3.9 x 1.3 x 1.2 cm [...] AM EDT Office Visit Orthopedic Surgery - [place] 160 175 [facility] 160 [place] [address] Lauren Cobb MD Primary osteoarthritis of both knees (Primary Dx) from Last 3 Months Immunizations Name Administration [...] and vomiting) Pneumonia Hypothyroidism Diverticulosis Neuromuscular disorder ([facility] V24, [facility] V28 ) Joint pain Arthritis Sciatica Social [...] 03/07/2025 11:00 AM EDT Consult Orthopedic Surgery [place] [address] [phone] Cari Nair NP [address] [phone] 03/20/2025 7:30 AM EDT Hospital Encounter [facility] Main OR [address] [place] [phone] Nils Calixto MD [address] [address] 03/20/2025 7:30 AM EDT - 03/20/2025 10:30 AM EDT Surgery [facility] Main OR [address] [place] [phone] Nils Calixto MD [address] [address] RIGHT TOTAL HIP ARTHROPLASTY [[id number] (CPT )] 04/04/2025 11:30 AM EST Office Visit Orthopedic Surgery [place] [address] [phone] Nils Calixto MD [address] [place] [address] Scheduled Procedures Name Priority Associated Diagnoses Date/Ti [...] series) 2023 Depression Screening 05/24/2024 COVID-19 Vaccine ( season) 2025 02/05/2024, 02/13/2023, 02/08/2022, Additional history exists Influenza [...] this topic Medical Devices Implanted Type Area Ornament Stapler Device Identifier Shelf Expiration Date Model / Serial / Lot Opthalmology Implants Opthalmology Implants Bilater al: Eye Procedures Procedure Name Priority Date/Time Associated Diagnosis Comments CA ARTHROCENTESIS/ASP IRATION/INJECTION MAJOR JOINT/BURSA W/O U/S GUIDANCE Routine 01/12/2025 10:30 AM EDT Primary osteoarthritis of both knees from Last 3 Months Results * CA ARTHROCENTESIS/ASPIRATION/INJECTION MAJOR JOINT/BURSA W/O U/S GUIDANCE (01/12/2025 [...] inal Result from Last 3 [place] [id number] [facility] MEDIC[facility] ADVANTAGE Care Teams Lead Pressman [employer] Relationship Specialty Start Date End Date Hesham Pacheco MD [address] [place] [address] [address] [place], [place] PCP - General Internal Medicine 11/19/20
[2025-02-08 08:19] LABS: MANUAL DIFF FLAG NO
[2025-02-08 08:38] LABS: Hematocrit 42.3 % (37.0-47.0); Hemoglobin 14.0 g/dl (12.0-16.0); Imm Gran Abs Auto 0.03 X10*3/uL (0.00-0.03); Imm Gran Pct Auto 0.4 % (0.0-0.4); Lymphocytes Absolute Auto 2.4 X10*3/uL (1.2-4.9); Mean Corpuscular HGB Conc 33.1 g/dl (31.0-35.0); Mean Corpuscular Hemoglobin 30.4 pg (27.0-33.0); Mean Corpuscular Volume 92.0 fL (80.0-98.0); NRBC Abs Auto 0.000 X10*3/uL (0.0-0.012); NRBC Pct Auto 0.0 /100WBC (0.0-0.2); Platelet Count 259 X10*3/uL (160-400); Red Blood Count 4.60 X10*6/uL (4.20-5.50); White Blood Count 7.8 X10*3/uL (4.8-10.8)
[2025-02-08 09:19] LABS: Appearance Urine Cloudy; Glucose Urine UA Negative (Negative); PH 7.0 (5.0-9.0); Specific Gravity - Urine 1.020 (1.005-1.025)
[2025-02-08 09:26] LABS: Hemoglobin A1C 169.2248 umol/L; Total Hemoglobin (HGBA1C) 3633.7024 umol/L
[2025-02-08 09:35] LABS: Alanine Aminotransferase 15 U/L (0-31); Albumin Level 4.9 g/dL (3.5-5.0); Alkaline Phosphatase 71 U/L (39-117); Anion Gap 12 (12-20); Aspartate Amino Transferase 21 U/L (5-31); Blood Urea Nitrogen 17 mg/dL (9-16); Calcium 9.9 mg/dL (8.4-10.2); Carbon Dioxide 29 mmol/L (22-29); Chloride 108 mmol/L (96-108); Cholesterol 264 mg/dL (<200); Estimated Glomerular Filt Rate 45; Free T4 (Free Thyroxine) 1.31 ng/dL (0.71-1.85); HDL Cholesterol 65 mg/dL (>40); Potassium 4.5 mmol/L (3.3-5.1); Sodium 144 mmol/L (135-145); Thyroid Stimulating Hormone 1.26 uIU/mL (0.32-4.0); Total Protein 7.4 g/dL (6.5-8.0); Triglycerides 184 mg/dL (<150)
== END 2025-02-08 08:04 | disposition home or self-care (01) ==
LOC: HO.LAB 08:03
PROVIDERS: PCP Internal Medicine; Visit Provider Internal Medicine
DX: R73.01 Impaired fasting glucose (principal); R30.0 Dysuria; E78.00 Pure hypercholesterolemia, unspecified; E03.9 Hypothyroidism, unspecified; E55.9 Vitamin D deficiency, unspecified; D64.9 Anemia, unspecified
CPT/HCPCS: 36415; 80053; 80061; 81003; 82306; 83036; 84439; 84443; 85025

== ENCOUNTER 2025-02-16 15:38 | Outpatient (AMB) | payer MEDICARE, SELFPAY ==
--- NOTE | 2025-02-16 15:41 | A.OFFPC_ITS ---
Vital Signs 02/16/25 15:56 Height 5 ft 8 in Weight 168 lb 4 oz BMI 25.6 BP 126/80 Blood Pressure Location Lt brachial Position Sitting Pulse 98 Pulse Source Pulse Oximeter Pulse Oximetry (%) 96 Oxygen Delivery Method Room Air Intake Visit Reasons: follow up Accompanied by: Spouse Allergies adhesive tape (ADHESIVE TAPE) Allergy (Severe, Verified 02/16/25 16:22) PEELS SKIN OFF acetaminophen (From DARVOCET-N 100) Allergy (Intermediate, Verified 02/16/25 16:22) VOMITTING Darvocet A500 Allergy (Unknown, Verified 02/16/25 16:22) vomiting oxycodone (Percocet) Allergy (Unknown, Verified 02/16/25 16:22) Unknown amoxicillin (Augmentin) Adverse Reaction (Unknown, Verified 02/16/25 16:22) stomach upset clavulanic acid (Augmentin) Adverse Reaction (Unknown, Verified 02/16/25 16:22) stomach upset From DEMEROL Allergy (Intermediate, Uncoded 02/16/25 16:22) VOMITTING ENVIRONMENTAL Allergy (Unknown, Uncoded 02/16/25 16:22) RHINITIS VICRYL SUTURES Allergy (Unknown, Uncoded 02/16/25 16:22) ITCHING Medication List - Last Reconciled 02/16/25 by Hesham Pacheco MD azelastine-fluticasone 137-50 mcg/spray (Dymista) 1 spray intranasal BID PRN 30 days celecoxib 200 mg PO DAILY cyclobenzaprine 10 mg PO TID PRN 30 days diclofenac sodium 1% 4 grams topical QID PRN 90 days lorazepam 0.5 mg PO BID PRN 30 days magnesium glycinate 360 mg PO .1 cap BID mupirocin 2% 1 appl topical TID 10 days omeprazole 20 mg PO DAILY 90 days suzetrigine (Journavx) 50 mg PO BID PRN 90 days Synthroid (levothyroxine) 125 mcg PO DAILY 90 days NS tramadol 50 mg PO BEDTIME PRN Tobacco use date assessed: 02/16/25 Fall risk assessment: No Falls in past year Last assessed Fall Risk: 02/16/25 Dental Screening Dental Screen Date: 02/16/25 Did you have a dental visit in the last 12 months?: No Did you have a dental problem in the last 6 months where you did not have access to dental care?: No Was dental information given to patient?: No HPI follow up HPI Details Patient comes in today for her follow up visit States that she is still experiencing increased pain in her right hip Right hip MRI done back in October 2024 revealed (+) severe right hip osteoarthritis with zczp-vs-ggac articulation, moderate marrow edema, and nondisplaced microfracture of the superior anterior acetabulum as well as a posterior labral degeneration with partial tear She is scheduled for undergo total right hip arthroplasty with [facility] next month on 03/12/2025 Admits that she has been feeling very stressed out from her own increased hip pain as well as dealing with her , who had his left knee replacement surgery a couple of months ago in November 2024 and has been very stubborn and does not listen to her and due to her stress, has not been eating right (states that she mostly just eats once a day at times and eats very little when she does) so she is not surprised to learn that her cholesterol levels have gone up a lot lately She denies any headaches or dizziness Denies any chest pains, no increased shortness of breath No nausea/vomiting, no abdominal pain - states that her previous LLQ abdominal pain has improved /resolved even before she started taking the Abx (Cipro) that was prescribed States that she took the Abx anyway as instructed and is hoping that the pain does not recur again She is presently scheduled for abdominal and pelvic CT next month on 03/08/2025 and states that if she has no recurrence of her symptoms when her scheduled CT gets closer, she will call to have her CT cancelled No change in bowel habits noted She had her follow-up labs done last week - to discuss her results [facility] Medical History Primary osteoarthritis of right hip Allergic rhinitis GERD (gastroesophageal reflux disease) Nontoxic uninodular goiter Overweight (BMI 25.0-29.9) Anxiety Primary osteoarthritis of both knees Right thyroid nodule Lumbar spinal stenosis Impaired fasting glucose Hypothyroidism Pure hypercholesterolemia Surgical History History of lobectomy of thyroid (~04/01/21) History of surgery Hx of hand surgery History of colonoscopy History of hand surgery Family History Other Family history non-contributory Social History Housing: House Alcohol intake: never Patient Tobacco Use Status: Former Tobacco user e-Cigarette/Vaping Use: Never Used Second Hand Smoke Exposure: Yes service: No Current occupational status: retired Cognitive needs: No Hearing needs: No Vision needs: Yes Questionnaire PHQ-9 Over the last 2 weeks, how often have you been bothered by any of the following problems? Depression Screening Interpretation: Negative Depression Screening Done: Yes Source: Developed by Drs. Kai Sy, Ariana Singh, Orlando Senior and colleagues, with an educational shelia from [employer]. Thrive Questionnaire Date Thrive assessed: 09/04/24 I am a: Patient What is your living situation today?: I have a steady place to live Within the past 12 months, did the food you bought not last and you didn't have the money to get more?: Never true Within the past 12 months, did you worry whether your food would run out before you got money to buy more?: Never true Do you have trouble paying for medicines?: No Do you have trouble getting transportation to medical appointments?: No Do you have trouble paying your heating and electricity bill?: No Do you have trouble taking care of your child, family member or friend?: No Do you have trouble with day-to-day activities such as bathing, preparing meals, shopping, managing finances, etc.?: No Are you currently unemployed and looking for a job?: Yes Are you interested in more education?: No Please select the resources that you would like help with: None Currently or been in a relationship where the following occur: No concerns reported THRIVE Score: 0 AUDIT C Alcohol Use Questionnaire (AUDIT-C) 1. How often do you have a drink containing alcohol?: Never 3. How often do you have six or more drinks on one occasion?: Never Total Score: 0 Score Reviewed/Action Taken: Yes GINO-7 AMB Questionnaire GINO-7 Date GINO - 7 assessed: 09/04/24 Feeling nervous, anxious, or on edge: 0 = Not at all Not being able to stop or control worryin = Not at all Worrying too much about different things: 0 = Not at all Trouble relaxin = Not at all Being so restless that it is hard to sit still: 0 = Not at all Becoming easily annoyed or irritable: 0 = Not at all Feeling afraid as if something awful might happen: 0 = Not at all Total GINO-7 score (0-4 normal; 5-9 mild; 10-14 moderate; 15-21 severe): 0 Source: Developed by Drs. Kai Sy, Ariana Singh, Orlando Senior and colleagues, with an educational shelia from [employer]. Review of Systems Const Denies chills, Denies fatigue, Denies fever(s) and Denies headache(s) ENT Denies dysphagia, Denies dizziness, Denies headache(s), Denies neck pain, Denies odynophagia and Denies sore throat Card Denies chest pain, Denies palpitations and Denies dyspnea Resp Denies chest congestion, Denies cough and Denies dyspnea GI Denies abdominal pain (her previous LLQ abdominal pain has resolved and hasn't recurred since), Denies hematochezia, Reports constipation (increased lately), Denies dysphagia, Denies heartburn, Denies diarrhea, Reports nausea (occasional), Denies odynophagia and Denies vomiting Denies difficulty voiding, Denies nocturia, Denies dysuria and Denies urinary urgency Musc Denies back pain, Reports arthralgias (severe pain in the right hip) and Denies neck pain Skin/Breast Denies rash Neuro Denies dizziness and Denies headache(s) Endo Denies fatigue and Denies palpitations Physical exam (Primary Care) Vital Signs: Last Vital Signs Pulse 98 02/16/25 15:56 BP 126/80 02/16/25 15:56 Pulse Ox 96 02/16/25 15:56 Oxygen Delivery Method Room Air 02/16/25 15:56 BMI result Body Mass Index 25.6 Tobacco/Smoking Status: Tobacco use Status Tobacco use date assessed 02/16/25 02/16/25 15:56 Patient Tobacco Use Status Former Tobacco user 02/16/25 15:42 e-Cigarette/Vaping Use Never Used 02/16/25 15:42 PHQ-9: PHQ-9 Score PHQ-9: Total score 0 02/16/25 15:42 Depression Screening Interpretation: Negative Thrive Assessment: Date of Thrive Assessment Date Thrive assessed 09/04/24 02/16/25 15:42 Currently or been in a relationship where the following occur: No concerns reported Const General: no acute distress and alert HENMT Ears: TM's normal bilaterally and EAC's normal Throat: Yes posterior oropharynx normal and Yes tonsils normal (no TP congestion) Neck Neck: Yes supple and No lymphadenopathy Thyroid: Thyroid normal Resp Auscultation: clear to auscultation bilaterally, no rales and no wheezes Cardio Rate: regular rate Rhythm: regular rhythm Heart sounds: no murmurs GI Palpation (GI): Soft to palpation and nontender Auscultation: normal bowel sounds General: Yes no CVA tenderness Back/Spine/Pelvis Back: no CVA tenderness Thoracic/Lumbar Spine: lumbar spinal tenderness (mild) Skin Rashes: no rashes Extrem General: Yes no clubbing, cyanosis or edema Right lower extremity: hip/thigh Details: tenderness (increased) Location: of the hip Results Reviewed Results Reviewed: Laboratory Tests 08/30/24 02/08/25 02/08/25 08:28 06:30 08:16 WBC 7.8 Hgb 14.0 Hct 42.3 Plt Count 259 Sodium 144 Potassium 4.5 Creatinine 1.18 Estimated GFR 45 Fasting Glucose 129 H Hemoglobin A1c % 6.2 H 6.4 H Calcium 9.9 AST 21 ALT 15 Triglycerides 175 H 184 H Cholesterol 219 H 264 H LDL Cholesterol, Calc 122 H 163 H HDL Cholesterol 62 65 25-OH Vitamin D Total 61.9 TSH 1.26 Free T4 1.31 Ur Specific [place] 1.020 Urine Protein Negative Urine Glucose (UA) Negative Urine Blood Negative Urine Nitrite Negative Ur Leukocyte Esterase Negative Coding Level of Care Code Est Pt Level 4 (04167) Diagnoses Pure hypercholesterolemia E78.00 Nontoxic uninodular goiter E04.1 Impaired fasting glucose R73.01 Gastroesophageal reflux disease without esophagitis K21.9 Esophagitis presence: without esophagitis Spinal stenosis of lumbar region, unspecified whether neurogenic claudication present M48.061 Neurogenic claudication status: unspecified Primary osteoarthritis of right hip M16.11 Primary osteoarthritis of both knees M17.0 Allergic rhinitis, unspecified seasonality, unspecified trigger J30.9 Allergic rhinitis seasonality: unspecified Allergic rhinitis trigger: unspecified Anxiety F41.9 Overweight (BMI 25.0-29.9) E66.3 Assessment & Plan Assessment & Plan (1) Pure hypercholesterolemia: Code(s): E78.00 - Pure hypercholesterolemia, unspecified Category: Medical Plan: Results of her labs done last week reviewed and discussed with patient - have advised patient that her cholesterol levels have increased significantly fro previous Reinforced low cholesterol diet; patient continues to decline offer to start her on Rx for her cholesterol and admits that she just has not been eating healthy lately as she can hardly eat most of the time when her right hip is flaring up on her Will recheck her labs and fasting lipids in 4 months for follow up (2) Nontoxic uninodular goiter: Comment: right thyroid Code(s): E04.1 - Nontoxic single thyroid nodule Category: Medical Plan: S/P right thyroid lobectomy and isthmusectomy under general anesthesia by Dr. Elda Mckee on 04/01/2021 Patient declined FNA Bx initially and wished to just proceed directly to surgical excision (with Dr. Mckee) after her repeat thyroid US done revealed an interval increase in size from the year before Her free T4 was again normal on her recent labs; TSH was also normal Continue Synthroid 125 mcg QD Will continue to monitor her TFTs regularly (3) Impaired fasting glucose: Code(s): R73.01 - Impaired fasting glucose Category: Medical Plan: Her HgbA1c was at 6.4% on her labs done last week - she was previously at 6.2% Reinforced low calorie/low carb diet; exercise as tolerated - states that she has not been able to do much lately due to her back surgery, followed by her current right hip issues Will recheck her FBS and HgbA1c in 4 months for follow up (4) GERD (gastroesophageal reflux disease): Code(s): K21.9 - Gastro-esophageal reflux disease without esophagitis Category: Medical Qualifiers: Esophagitis presence: without esophagitis Qualified Code(s): K21.9 - Gastro-esophageal reflux disease without esophagitis Plan: Dietary restrictions reinforced Continue Omeprazole 20 mg QD (5) Lumbar spinal stenosis: Code(s): M48.061 - Spinal stenosis, lumbar region without neurogenic claudication Category: Medical Qualifiers: Neurogenic claudication status: unspecified Qualified Code(s): M48.061 - Spinal stenosis, lumbar region without neurogenic claudication Plan: Her lumbar spine MRI done on 02/26/2024 revealed (+) multilevel lumbar degenerative disc disease most severe at L2-3 and L5-S1. Lumbar spondylosis resulting in multilevel spinal canal and foraminal narrowing; spinal canal stenosis is most severe at L3-4. At L4-5 and L5-S1 there is severe right-sided foraminal stenosis with disc contacting the traversing right L4 and L5 nerve roots Patient was subsequently referred to Dr. Ascencio for neurosurgery consultation and she eventually underwent right L5-S1 minimally invasive decompression last month on 03/28/2024 at [facility] She reports (+) significant relief of her right-sided sciatica symptoms following her surgery but she still has minimal residual pain and numbness in her right leg/foot/toes occasionally She has also been experiencing what she thought was right-sided sciatica, which turned out to be pain from her right hip Continue Gabapentin 100 mg TID Reinforced activity and weight-lifting restrictions Follow up with neurosurgery (Dr. Ascencio) as scheduled or as needed (6) Primary osteoarthritis of right hip: Code(s): M16.11 - Unilateral primary osteoarthritis, right hip Category: Medical Plan: X-rays of the right hip done in January 2024 revealed (+) severe right hip osteoarthritis with femoral neck buttressing, similar when compared to prior examination in February 2023 (CT) MRI of the hip done a couple of weeks ago on 02/01/2025 revealed severe right hip osteoarthritis with neij-vi-fwuq articulation, moderate marrow edema, and nondisplaced microfracture of the superior anterior acetabulum as well as (+) posterior labral degeneration with partial tear. She is now seeing [facility] for her right hip OA and she has been recommended to undergo right hip replacement surgery, which is now scheduled next month on 03/08/2025 Follow up with orthopedics as scheduled (7) Primary osteoarthritis of both knees: Code(s): M17.0 - Bilateral primary osteoarthritis of knee Category: Medical Plan: X-rays of the knees done back in January 2020 revealed (+) medial and patellofemoral compartment degenerative changes with apical spurring in both knees Continue Celecoxib 200 mg QD PRN Will consider referral to orthopedics if her knee pain progress or worsen (8) Allergic rhinitis: Code(s): J30.9 - Allergic rhinitis, unspecified Category: Medical Qualifiers: Allergic rhinitis seasonality: unspecified Allergic rhinitis trigger: unspecified Qualified Code(s): J30.9 - Allergic rhinitis, unspecified Plan: Continue Azelastine-Fluticasone 137-50 mcg nasal spray 1 spray into each nostril BID PRN (9) Anxiety: Code(s): F41.9 - Anxiety disorder, unspecified Category: Medical Plan: Continue Lorazepam 0.5 mg 2 to 3 times a day PRN - states that she takes this only as needed She declined referral to psychiatry as well as Rx for maintenance therapy - feels that she is doing well on Lorazepam PRN alone (10) Overweight (BMI 25.0-29.9): Code(s): E66.3 - Overweight Category: Medical Plan: Reinforced diet; exercise and weight loss are not realistic at this time due to her right hip and lower back issues Plan Follow up in 4 months Orders: Orders Complete Blood Count Auto Diff 4 Months D64.9 - Anemia, unspecified UA CC w/rflx Micro + Cult 4 Months R30.0 - Dysuria Vitamin D 25-OH Total 4 Months E55.9 - Vitamin D deficiency, unspecified Comprehensive [place]. Panel Fast 4 Months E78.00 - Pure hypercholesterolemia, unspecified Lipid Panel 4 Months E78.00 - Pure hypercholesterolemia, unspecified Hemoglobin A1c 4 Months R73.01 - Impaired fasting glucose TSH reflex Free T4 4 Months E78.00 - Pure hypercholesterolemia, unspecified
[2025-02-16 15:56] VITALS: BP 126/80; PULSE 98; O2SAT 96; BMI 25.6
--- OUTSIDE RECORDS SUMMARY | 2025-02-16 16:04 | XMS_ITS | Clinical Summary ---
Author Organization [facility] Address [address] [place] [address] Care Team Providers Care Family And Consumer Science Professor Name Role Phone Hesham Pacheco MD Primary Care Provider [phone] Allergies Active Allergy Reactions Criticality Noted Date [...] change in size. Ultrasound: 02/27/2021 @ [facility] 3.9 x 1.3 x 1.2 cm right [...] attack Father Joshua Heart disease Father Joshua [place] @ 55 Diabetes Half-Sister Other Half-Sister blood [...] topic Insurance MEDICARE PART A & [facility] COMMERCIAL MEDICARE Care Teams Family And Consumer Science Professor Relationship Specialty Start Date End Date Hesham Pacheco MD [address] [place] [address] [place] [address] PCP - General Internal Medicine 03/11/21
--- OUTSIDE RECORDS SUMMARY | 2025-02-16 16:04 | XMS_ITS | Encounter Summary ---
Author Organization [facility] Address [address] [place] [id number] Care Team Providers Care Welt Trimming Machine Operator Name Role Phone Hesham Pacheco MD Primary Care Provider [phone]- [phone] Encounter Details Date Type Department Care Team (Late st Contact Info) Description 03/17/2021 Scanned Document Surgery [facility] Surgical Oncology [address] [phone] Elda Mckee MD [address] [place] [address] [address] [place] [address] Social History Tobacco Use Types Packs/Day Years [...] on filedocumented in this encounter Care Teams Welt Trimming Machine Operator Relationship Specialty Start Date End Date Hesham Pacheco MD [address] [place] [address] [place] [address] PCP - General Internal Medicine 03/11/21 documented as of this encounter
--- OUTSIDE RECORDS SUMMARY | 2025-02-16 16:05 | XMS_ITS | Encounter Summary ---
Author Organization [facility] Address [address] [place] [address] Care Team Providers Care Cable Mechanic Name Role Phone Hesham Pacheco MD Primary Care Provider [phone]- [phone] Encounter Details Date Type Department Care Team (Late st Contact Info) Description 03/27/2021 Scanned Document [facility] PRIMARY [facility]ARE [facility] Hesham Pacheco MD [address] [place] [address] [place] [address] Social History Tobacco Use Types Packs/Day Years [...] on filedocumented in this encounter Care Teams Cable Mechanic Relationship Specialty Start Date End Date Hesham Pacheco MD [address] [place] [address] [place] [address] PCP - General Internal Medicine 03/11/21 documented as of this encounter
--- OUTSIDE RECORDS SUMMARY | 2025-02-16 16:05 | XMS_ITS | Clinical Summary ---
Author Organization [facility] Address [address] [place] [address] Phone Care Team Providers Care Rag Sorter Name Role Phone Hesham Pacheco MD Primary Care Provider [phone] Allergies Active Allergy Reactions Criticality Noted Date Comments Adhesive Tape-Silicones Wound Medium 03/12/2021 Skin peels off Latex Wound Medium 11/22/2020 Meperidine Hcl 11/22/2020 Oxycodone-Acetaminophe n Nausea And Vomiting Medium 11/22/2020 TOLERATES TYLENOL Sutures Other 02/16/2025 They do not dissolve, they come out as a pimple and have to be extracted Medications aspirin 81 mg EC tablet Take [...] Do not crush, chew, or split. Active suzetrigine (Journavx) 50 mg tablet Take 50 mg by mouth 2 (two) times a day if needed (pain). Active Active Problems Problem Noted Date Diagnosed [...] Patient had lumbar spine x-ray 02/08/2024 at [facility] with multilevel degenerative disc disease, [...] the change in size. Ultrasound: 02/27/2021 @ [facility] 3.9 x 1.3 x 1.2 cm right [...] Encounters Date Type Department Care Team Description 02/16/2025 Telephone Orthopedic Surgery [facility] [address] [facility] [address] [place] [address] Anjali Jacobs RN 01/12/2025 10:30 AM EDT Office Visit Orthopedic Surgery [facility] [address] [facility] [address] [place] [address] Lauren Cobb MD Primary osteoarthritis [...] and vomiting) Pneumonia Hypothyroidism Diverticulosis Neuromuscular disorder ([facility] V24, [facility] V28 ) Joint pain Arthritis Sciatica Lumbar spondylosis Social History Tobacco Use Types Packs/Day Years [...] EST Inhaled Oxygen Concentration - - Weight 74.8 kg (165 lb) 02/16/2025 12:00 PM EDT Height 171.5 cm (5' 7.5 ) 02/16/2025 12:00 PM ED T Body Mass Index 25.46 02/16/2025 12:00 PM EDT Plan of Treatment Upcoming Encounters Date Type Department Care Team (Latest Contact Info) Description 03/07/2025 11:00 AM EDT Consult Orthopedic Surgery [place] [address] [phone] Cari Nair NP [address] [phone] 03/20/2025 7:30 AM EDT Hospital Encounter [facility] [address] [place] [phone] Nils Calixto MD [address] [address] 03/20/2025 7:30 AM EDT - 03/20/2025 10:30 AM EDT Surgery [facility] [address] [place] [phone] Nils Calixto MD [address] [address] RIGHT TOTAL HIP ARTHROPLASTY [[id number] (CPT )] 04/05/2025 3:00 PM EST Office Visit Orthopedic Surgery [place] [address] [phone] Nils Calixto MD [address] [address] Scheduled Procedures Name Priority Associated Diagnoses Date/Ti [...] 2023 Depression Screening 05/24/2024 COVID-19 Vaccine ( - 2023- season) 2025 02/05/2024, 02/13/2023, 02/08/2022, Additional history [...] this topic Medical Devices Implanted Type Area Boarding Mother Device Identifier Shelf Expiration Date Model / Serial / Lot Opthalmology Implants Opthalmology Implants Bilater al: Eye Procedures Procedure Name Priority Date/Time Associated Diagnosis Comments NV ARTHROCENTESIS/ASP IRATION/INJECTION MAJOR JOINT/BURSA W/O U/S GUIDANCE Routine 01/12/2025 10:30 AM EDT Primary osteoarthritis of both knees from Last 3 Months Results * NV ARTHROCENTESIS/ASPIRATION/INJECTION MAJOR JOINT/BURSA W/O U/S GUIDANCE (01/12/2025 [...] Result from Last 3 Mon[place] [id number] [facility] MEDICARE ADVANTAGE Care Teams Rag Sorter Relationship Specialty Start Date End Date Hesham Pacheco MD [address] [place] [address] Dr [address] DINA Myers PCP - General Internal Medicine 11/19/20
--- OUTSIDE RECORDS SUMMARY | 2025-02-16 16:05 | XMS_ITS | Patient Health Record ---
Author Organization [facility] Address [address] [place] [address] Care Team Providers Care Environmental Consultant Name Role Phone Po Raeann CORONA Primary Care Provider Kai Shepherd [phone] Reason For Referral No Information Plan Of Treatment No Information Insurance Providers Payer Name Payer Address Payer Phone Subscriber Number Group Number Insured Name Patient Relationship to Insured Coverage Start Date Coverage End Date [facility] [address] [place] [address] [id number] JACKELINE WILKS Self - patient is the insured
--- OUTSIDE RECORDS SUMMARY | 2025-02-16 16:05 | XMS_ITS | Encounter Summary ---
Author Organization [facility] Address [address] [place] [address] Care Team Providers Care Aircraft Electrician Name Role Phone Hesham Pacheco MD Primary Care Provider + [phone] Reason for Visit * Reason Onset Date Comments PREOP REVIEW 02/16/2025 Encounter Details Date Type Department Care Team ([facility] st Contact Info) Description 02/16/2025 Telephone Orthopedic Surgery - [place] [address] [place] [phone] Anjali Jacobs, RN Social History Tobacco Use Types Packs/Day Years [...] AM EST documented as of this encounter Progress Notes * Anjali Jacobs RN - 02/16/2025 12:18 PM EDT PRE-OP REVIEW: Prior Living Arrangements: Lives with spouse John in a private home with 2 stairs without railingto enter, once inside everything is on one level, spouse to assist with laundry Who will assist patient at home: Spouse John DME: has raised toilet, bath seat and 2 ww Outside Services: MOW's (meals on wheels) PCP: Dr. Pacheco HCP: does not have a HCP, will need to complete one prior to surgery Patient's discharge goal: home with [facility], agency of choice and prebooked Patient's ride home: Spouse John [phone] This nurse instructed patient NPO after midnight the day prior to surgery and small sips of H20 with medications on day of surgery. Patient instructed not to take vitamins and supplement 1 week priorto surgery. documented in this encounter Plan of Treatment Upcoming Encounters Date Type Department Care Team (Latest Contact Info) Description 03/07/2025 11:00 AM EDT Consult Orthopedic Surgery [place] [address] [phone] Cari Nair NP [address] [phone] 03/20/2025 7:30 AM EDT Hospital Encounter [facility] Main OR [address] [place] [phone] Nils Calixto MD [address] [address] 03/20/2025 7:30 AM EDT - 03/20/2025 10:30 AM EDT Surgery [facility] Main OR [address] [place] [phone] Nils Calixto MD [address] [address] RIGHT TOTAL HIP ARTHROPLASTY [50950 (CPT )] 04/05/2025 3:00 PM EST Office Visit Orthopedic Surgery [place] [address] [phone] Nils Calixto MD [address] [address] Scheduled Procedures Name Priority Associated Diagnoses Date/Ti me ARTHROPLASTY HIP TOTAL Primary osteoarthritis of right hip 03/20/2025 7:30 AM EDT documented as of this encounter Visit Diagnoses Not on filedocumented in this encounter Care Teams Aircraft Electrician Relationship Specialty Start Date End Date Hesham Pacheco MD [address] [place] [address] [address] [place], [place] PCP - General Internal Medicine 11/19/20 documented as of this encounter
== END 2025-02-16 16:51 | disposition home or self-care (01) ==
LOC: HO.HMCH 15:39
PROVIDERS: PCP Internal Medicine; Visit Provider Internal Medicine
DX: E78.00 Pure hypercholesterolemia, unspecified (principal); E04.1 Nontoxic single thyroid nodule; R73.01 Impaired fasting glucose; K21.9 Gastro-esophageal reflux disease without esophagitis; M48.061 Spinal stenosis, lumbar region without neurogenic claudication; M16.11 Unilateral primary osteoarthritis, right hip; M17.0 Bilateral primary osteoarthritis of knee; J30.9 Allergic rhinitis, unspecified; F41.9 Anxiety disorder, unspecified; E66.3 Overweight

== ENCOUNTER → 2025-02-16 15:38 | Outpatient (BNVA) | payer MEDICARE, SELFPAY | PROVIDERS: PCP Internal Medicine; Visit Provider Internal Medicine | DX: E04.1 Nontoxic single thyroid nodule (principal); E78.00 Pure hypercholesterolemia, unspecified; R73.01 Impaired fasting glucose; K21.9 Gastro-esophageal reflux disease without esophagitis; M48.061 Spinal stenosis, lumbar region without neurogenic claudication; M16.11 Unilateral primary osteoarthritis, right hip; M17.0 Bilateral primary osteoarthritis of knee; J30.9 Allergic rhinitis, unspecified; F41.9 Anxiety disorder, unspecified; E66.3 Overweight; D64.9 Anemia, unspecified; R30.0 Dysuria; E55.9 Vitamin D deficiency, unspecified; Z68.25 Body mass index [BMI] 25.0-25.9, adult | CPT/HCPCS: 99212 ==

== ENCOUNTER 2025-02-27 12:12 | Outpatient (AMB) | payer MEDICARE, SELFPAY ==
[2025-02-27 12:35] VITALS: BP 110/80; PULSE 74; O2SAT 96; BMI 25.7
--- NOTE | 2025-02-27 12:35 | A.OFFPC_ITS ---
Vital Signs 02/27/25 12:35 Height 5 ft 8 in Weight 169 lb 4 oz BMI 25.7 BP 110/80 Blood Pressure Location Lt brachial Position Sitting Pulse 74 Pulse Source Pulse Oximeter Pulse Oximetry (%) 96 Oxygen Delivery Method Room Air Intake Visit Reasons: R total hip replacement Waiter/Waitress Required: No Accompanied by: Self / Same As Patient Allergies adhesive tape (ADHESIVE TAPE) Allergy (Severe, Verified 02/27/25 12:49) PEELS SKIN OFF acetaminophen (From DARVOCET-N 100) Allergy (Intermediate, Verified 02/27/25 12:49) VOMITTING Darvocet A500 Allergy (Unknown, Verified 02/27/25 12:49) vomiting oxycodone (Percocet) Allergy (Unknown, Verified 02/27/25 12:49) Unknown amoxicillin (Augmentin) Adverse Reaction (Unknown, Verified 02/27/25 12:49) stomach upset clavulanic acid (Augmentin) Adverse Reaction (Unknown, Verified 02/27/25 12:49) stomach upset From DEMEROL Allergy (Intermediate, Uncoded 02/27/25 12:49) VOMITTING ENVIRONMENTAL Allergy (Unknown, Uncoded 02/27/25 12:49) RHINITIS VICRYL SUTURES Allergy (Unknown, Uncoded 02/27/25 12:49) ITCHING Medication List - Last Reconciled 02/27/25 by Hesham Pacheco MD azelastine-fluticasone 137-50 mcg/spray (Dymista) 1 spray intranasal BID PRN 30 days celecoxib 200 mg PO DAILY cyclobenzaprine 10 mg PO TID PRN 30 days diclofenac sodium 1% 4 grams topical QID PRN 90 days lorazepam 0.5 mg PO BID PRN 30 days magnesium glycinate 360 mg PO .1 cap BID mupirocin 2% 1 appl topical TID 10 days omeprazole 20 mg PO DAILY 90 days suzetrigine (Journavx) 50 mg PO BID PRN 90 days Synthroid (levothyroxine) 125 mcg PO DAILY 90 days NS tramadol 50 mg PO BEDTIME PRN Tobacco use date assessed: 02/27/25 Fall risk assessment: No Falls in past year Last assessed Fall Risk: 02/27/25 Dental Screening Dental Screen Date: 02/27/25 Did you have a dental visit in the last 12 months?: No Did you have a dental problem in the last 6 months where you did not have access to dental care?: No Was dental information given to patient?: No HPI R total hip replacement HPI Details Patient comes in today at the request of Dr. Wili Calixto of [facility] for a preoperative medical examination for clearance for surgery She is scheduled for total right hip arthroplasty under general anesthesia in a couple of weeks on 03/12/2025 States that other than her severe right hip pain, she feels okay Her bilateral knee pains are currently under control with the cortisone injections she received from orthopedics a few weeks ago She denies any headaches or dizziness Denies any chest pains, no increased SOB No nausea/vomiting, no abdominal pain No change in bowel habits noted States that she would like to get a refill on her Tramadol Rx She had some follow up labs done a few weeks ago - to discuss her results REPLACED BY [facility] Medical History Primary osteoarthritis of right hip Allergic rhinitis GERD (gastroesophageal reflux disease) Nontoxic uninodular goiter Overweight (BMI 25.0-29.9) Anxiety Primary osteoarthritis of both knees Right thyroid nodule Lumbar spinal stenosis Impaired fasting glucose Hypothyroidism Pure hypercholesterolemia Surgical History History of lobectomy of thyroid (~04/01/21) History of surgery Hx of hand surgery History of colonoscopy History of hand surgery Family History Other Family history non-contributory Social History Housing: House Alcohol intake: never Patient Tobacco Use Status: Former Tobacco user e-Cigarette/Vaping Use: Never Used Second Hand Smoke Exposure: Yes service: No Current occupational status: retired Cognitive needs: No Hearing needs: No Vision needs: Yes Questionnaire Thrive Questionnaire Date Thrive assessed: 02/16/25 I am a: Patient What is your living situation today?: I have a steady place to live Within the past 12 months, did the food you bought not last and you didn't have the money to get more?: Never true Within the past 12 months, did you worry whether your food would run out before you got money to buy more?: Never true Do you have trouble paying for medicines?: No Do you have trouble getting transportation to medical appointments?: No Do you have trouble paying your heating and electricity bill?: No Do you have trouble taking care of your child, family member or friend?: No Do you have trouble with day-to-day activities such as bathing, preparing meals, shopping, managing finances, etc.?: No Are you currently unemployed and looking for a job?: Yes Are you interested in more education?: No Please select the resources that you would like help with: None Currently or been in a relationship where the following occur: No concerns reported THRIVE Score: 0 AUDIT C Alcohol Use Questionnaire (AUDIT-C) 1. How often do you have a drink containing alcohol?: Never 3. How often do you have six or more drinks on one occasion?: Never Total Score: 0 Score Reviewed/Action Taken: Yes GINO-7 AMB Questionnaire GINO-7 Date GINO - 7 assessed: 09/04/24 Source: Developed by Drs. Kai Sy, Ariana Singh, Orlando Senior and colleagues, with an educational shelia from [employer] Review of Systems Const Denies chills, Denies fatigue, Denies fever(s) and Denies headache(s) ENT Denies dysphagia, Denies dizziness, Denies otalgia, Denies headache(s), Denies neck pain, Denies odynophagia and Denies sore throat Card Denies chest pain, Denies palpitations and Denies dyspnea Resp Denies chest congestion, Denies cough and Denies dyspnea GI Denies abdominal pain, Reports constipation (at times), Denies dysphagia, Denies heartburn, Denies diarrhea, Denies nausea, Denies odynophagia and Denies vomiting Denies difficulty voiding, Denies nocturia, Denies dysuria and Denies urinary urgency Musc Denies back pain, Reports arthralgias (severe pain in the right hip) and Denies neck pain Skin/Breast Denies rash Neuro Denies dizziness and Denies headache(s) Endo Denies fatigue and Denies palpitations Physical exam (Primary Care) Vital Signs: Last Vital Signs Pulse 74 02/27/25 12:35 BP 110/80 02/27/25 12:35 Pulse Ox 96 02/27/25 12:35 Oxygen Delivery Method Room Air 02/27/25 12:35 BMI result Body Mass Index 25.7 Tobacco/Smoking Status: Tobacco use Status Tobacco use date assessed 02/27/25 02/27/25 12:42 Patient Tobacco Use Status Former Tobacco user 02/27/25 12:42 e-Cigarette/Vaping Use Never Used 02/27/25 12:42 Thrive Assessment: Date of Thrive Assessment Date Thrive assessed 02/16/25 02/27/25 12:42 Currently or been in a relationship where the following occur: No concerns reported Const General: no acute distress and alert HENMT Ears: TM's normal bilaterally and EAC's normal Throat: Yes posterior oropharynx normal and Yes tonsils normal (no TP congestion) Neck Neck: Yes supple and No lymphadenopathy Thyroid: Thyroid normal Resp Auscultation: clear to auscultation bilaterally, no rales and no wheezes Cardio Rate: regular rate Rhythm: regular rhythm Heart sounds: no murmurs GI Palpation (GI): Soft to palpation and nontender Auscultation: normal bowel sounds General: Yes no CVA tenderness Back/Spine/Pelvis Back: no CVA tenderness Thoracic/Lumbar Spine: lumbar spinal tenderness (mild) Skin Rashes: no rashes Extrem General: Yes no clubbing, cyanosis or edema Right lower extremity: hip/thigh Details: tenderness (increased) Location: of the hip Results Reviewed Results Reviewed: Laboratory Tests 02/08/25 02/08/25 06:30 08:16 WBC 7.8 Hgb 14.0 Hct 42.3 Plt Count 259 Sodium 144 Potassium 4.5 Creatinine 1.18 Estimated GFR 45 Fasting Glucose 129 H Hemoglobin A1c % 6.4 H Calcium 9.9 AST 21 ALT 15 Alkaline Phosphatase 71 Total Protein 7.4 Albumin 4.9 TSH 1.26 Free T4 1.31 Ur Specific [place]ushing 1.020 Urine Protein Negative Urine Glucose (UA) Negative Urine Blood Negative Urine Nitrite Negative Ur Leukocyte Esterase Negative Coding Level of Care Code Est Pt Level 4 (79133) Diagnoses Preoperative examination Z01.818 Primary osteoarthritis of right hip M16.11 Pure hypercholesterolemia E78.00 Nontoxic uninodular goiter E04.1 Impaired fasting glucose R73.01 Gastroesophageal reflux disease without esophagitis K21.9 Esophagitis presence: without esophagitis Spinal stenosis of lumbar region, unspecified whether neurogenic claudication present M48.061 Neurogenic claudication status: unspecified Primary osteoarthritis of both knees M17.0 Allergic rhinitis, unspecified seasonality, unspecified trigger J30.9 Allergic rhinitis trigger: unspecified Allergic rhinitis seasonality: unspecified Anxiety F41.9 Overweight (BMI 25.0-29.9) E66.3 Assessment & Plan Assessment & Plan (1) Preoperative examination: Code(s): Z01.818 - Encounter for other preprocedural examination Category: Medical Plan: Patient presents with acceptable risks for planned intermediate cardiac-risk procedure Results of her labs done a few weeks ago reviewed - these are attached to this report above In-office EKG done today (copy attached to report) revealed normal sinus rhythm with non-specific ST-T wave changes; EKG is mostly unchanged from her previous EKG done in 2020 (2) Primary osteoarthritis of right hip: Code(s): M16.11 - Unilateral primary osteoarthritis, right hip Category: Medical Plan: She is scheduled for total right hip arthroplasty under general anesthesia in a couple of weeks on 03/12/[address] Nils Calixto Continue Tramadol 50 mg Q HS PRN for pain for now - Rx refilled (3) Pure hypercholesterolemia: Code(s): E78.00 - Pure hypercholesterolemia, unspecified Category: Medical Plan: Reinforced low cholesterol diet Patient continues to decline offer to start her on Rx for her cholesterol Will recheck her labs and fasting lipids as scheduled in a few months for follow up (4) Nontoxic uninodular goiter: Comment: right thyroid Code(s): E04.1 - Nontoxic single thyroid nodule Category: Medical Plan: S/P right thyroid lobectomy and isthmusectomy under general anesthesia by Dr. Oscar Mckee on 04/01/2021 Patient declined FNA Bx initially and wished to just proceed directly to surgical excision (with Dr. Mckee) after her repeat thyroid US done revealed an interval increase in size from the year before Her free T4 was again normal on her recent labs; TSH was also normal Continue Synthroid 125 mcg QD Will continue to monitor her TFTs regularly (5) Impaired fasting glucose: Code(s): R73.01 - Impaired fasting glucose Category: Medical Plan: Her HgbA1c was at 6.4% on her most recent labs done a few weeks ago - she was previously at 6.2% earlier this year Reinforced low calorie/low carb diet; exercise as tolerated - states that she has not been able to do much lately due to her back surgery, followed by her current right hip issues Will recheck her FBS and HgbA1c in a few months for follow up (6) GERD (gastroesophageal reflux disease): Code(s): K21.9 - Gastro-esophageal reflux disease without esophagitis Category: Medical Qualifiers: Esophagitis presence: without esophagitis Qualified Code(s): K21.9 - Gastro-esophageal reflux disease without esophagitis Plan: Dietary restrictions reinforced Continue Omeprazole 20 mg QD (7) Lumbar spinal stenosis: Code(s): M48.061 - Spinal stenosis, lumbar region without neurogenic claudication Category: Medical Qualifiers: Neurogenic claudication status: unspecified Qualified Code(s): M48.061 - Spinal stenosis, lumbar region without neurogenic claudication Plan: Her lumbar spine MRI done on 02/26/2024 revealed (+) multilevel lumbar dege nerative disc disease most severe at L2-3 and L5-S1. Lumbar spondylosis resulting in multilevel spinal canal and foraminal narrowing; spinal canal stenosis is most severe at L3-4. At L4-5 and L5-S1 there is severe right-sided foraminal stenosis with disc contacting the traversing right L4 and L5 nerve roots Patient was subsequently referred to Dr. Ascencio for neurosurgery consultation and she eventually underwent right L5-S1 minimally invasive decompression on 03/28/[address] [facility] She reports (+) significant relief of her right-sided sciatica symptoms following her surgery but she still has some residual pain and numbness in her right leg/foot/toes occasionally She has also been experiencing what she thought was right-sided sciatica, which turned out to be pain from her right hip and this is now beig addressed Continue Gabapentin 100 mg TID Reinforced activity and weight-lifting restrictions Follow up with neurosurgery (Dr. Ascencio) as scheduled or as needed (8) Primary osteoarthritis of both knees: Code(s): M17.0 - Bilateral primary osteoarthritis of knee Category: Medical Plan: X-rays of the knees done back in January 2020 revealed (+) medial and patellofemoral compartment degenerative changes with apical spurring in both knees Continue Celecoxib 200 mg QD PRN Will consider referral to orthopedics if her knee pain progress or worsen (9) Allergic rhinitis: Code(s): J30.9 - Allergic rhinitis, unspecified Category: Medical Qualifiers: Allergic rhinitis trigger: unspecified Allergic rhinitis seasonality: unspecified Qualified Code(s): J30.9 - Allergic rhinitis, unspecified Plan: Continue Azelastine-Fluticasone 137-50 mcg nasal spray 1 spray into each nostril BID PRN (10) Anxiety: Code(s): F41.9 - Anxiety disorder, unspecified Category: Medical Plan: Continue Lorazepam 0.5 mg 2 to 3 times a day PRN - states that she takes this only as needed She declined referral to psychiatry as well as Rx for maintenance therapy - feels that she is doing well on Lorazepam PRN alone (11) Overweight (BMI 25.0-29.9): Code(s): E66.3 - Overweight Category: Medical Plan: Reinforced diet; exercise and weight loss are not realistic at this time due to her right hip and lower back issues Plan Patient is currently medically optimized and has no contraindications to undergo total right hip arthroplasty as planned with Dr. Calixto on 03/12/2025 Follow up as scheduled in May 2025 Medications: Refilled tramadol 50 mg PO BEDTIME PRN 60 tabs 0RF pain tramadol 50 mg PO BEDTIME PRN 60 tabs 0RF pain
--- OUTSIDE RECORDS SUMMARY | 2025-02-27 15:11 | XMS_ITS | Clinical Summary ---
Author Organization [facility] Address [address] [place] [address] Phone Care Team Providers Care Oreman Name Role Phone Hesham Pacheco MD Primary [...] Patient had lumbar spine x-[place] [facility] with multilevel degenerative disc disease, most advanced [...] the change in size. Ultrasound: 02/27/2021 @ [facility] 3.9 x 1.3 x 1.2 cm right [...] Care Team Description 02/16/2025 Telephone Orthopedic Surgery [facility] 250 175 [facility] 250 [place] [address] Anjali Jacobs RN 01/12/2025 10:30 AM EDT Office Visit Orthopedic Surgery [facility] 160 175 [facility] 160 [place] [address] Lauren oCbb MD Primary osteoarthritis of both knees (Primary Dx) from Last 3 Months Immunizations Immunization Administration Dates Next Due Influenza trivalent, 0.5mL [...] and vomiting) Pneumonia Hypothyroidism Diverticulosis Neuromuscular disorder ([facility] V24, [facility] V28 ) Joint pain Arthritis Sciatica Lumbar spondylosis Social History Tobacco Use Types Packs/Day Years Used Date Smoking Tobacco: Former Cigarettes Smokeless Tobacco: Never Tobacco Cessation:Counseling Given: Not Answered Alcohol Use Standard Drinks/Week Comments Never 0 (1 standard drink = 0.6 oz pur e alcohol) Interpersonal Safety Answer Date Record ed Physical Abuse Unrecognized value 03/28/2024 Verbal Abuse Unrecognized value 03/28/2024 Comments Unknown Sex and Gender Information [...] 03/07/2025 11:00 AM EDT Consult Orthopedic Surgery [place] [address] [phone] Cari Nair NP [address] [phone] 03/20/2025 7:30 AM EDT Hospital Encounter [facility] Main OR [address] [place] [phone] Nils Calixto MD [address] [address] 03/20/2025 7:30 AM EDT - 03/20/2025 10:30 AM EDT Surgery [facility] OR [address] [place] [phone] Nils Calixto MD [address] [address] RIGHT TOTAL HIP ARTHROPLASTY [51691 (CPT )] 04/05/2025 3:00 PM EST Office Visit Orthopedic Surgery [place] [address] [phone] Nils Calixto MD [address] [address] Scheduled Procedures Name Priority Associated Diagnoses Date/Ti [...] on patient's age to complete this topic Goals Goal Patient Goal Type Associated Problems Recent Progress Patient-Stated? Author Autogenera danial Goal Care Plan Autogenerated Problem No Nils Calitxo MD Medical Devices Implanted Type Area Manufacturing Director Device Identifier Shelf Expiration Date Model / Serial / Lot Opthalmology Implants Opthalmology Implants Bilater al: Eye Procedures Procedure Name Priority Date/Time Associated Diagnosis Comments WI ARTHROCENTESIS/ASP IRATION/INJECTION MAJOR JOINT/BURSA W/O U/S GUIDANCE Routine 01/12/2025 10:30 AM EDT Primary osteoarthritis of both knees from Last 3 Months Results * WI ARTHROCENTESIS/ASPIRATION/INJECTION MAJOR JOINT/BURSA W/O U/S GUIDANCE (01/12/2025 [...] with patient: Verbal Pre-procedure timeout performed: yes Lauren Cobb MD IN CLINIC/BEDSIDE ORDERABLES F inal Result from Last 3 Months Additional Health Concerns Active Problems Noted Date Diagnosed Date Autogenerated Problem 02/18/2025 Insurance [facility] MEDICARE ADVANTAGE Care Teams Oreman Relationship Specialty Start Date End Date Hesham Pacheco MD [address] [place] [address] [place] PCP - General Internal Medicine 11/19/20
--- OUTSIDE RECORDS SUMMARY | 2025-02-27 15:11 | XMS_ITS | Encounter Summary ---
Author Organization [facility] Address [address] [place] [address] Care Team Providers Care Paper Novelty Maker Name Role Phone Hesham Pacheco MD Primary Care Provider [phone]- [phone] Encounter Details Date Type Department Care Team (Late st Contact Info) Description 03/27/2021 Scanned Document [facility] PRIMARY CARE SCAN Hesham Pacheco MD [address] [place] [address] [place] [address] Social History Tobacco Use Types Packs/Day Years [...] on filedocumented in this encounter Care Teams Paper Novelty Maker Relationship Specialty Start Date End Date Hesham Pacheco MD [address] [place] [address] [place] [address] PCP - General Internal Medicine 03/11/21 documented as of this encounter
--- OUTSIDE RECORDS SUMMARY | 2025-02-27 15:11 | XMS_ITS | Patient Health Record ---
Author Organization [facility] Address [address] [place] [address] Care Team Providers Care Cleaning Laborer Name Role Phone Po Raeann CORONA Primary Care Provider Kai Shepherd [phone] Reason For Referral No Information Plan Of Treatment No Information Insurance Providers Payer Name Payer Address Payer Phone Subscriber Number Group Number Insured Name Patient Relationship to Insured Coverage Start Date Coverage End Date [facility] [address] [place] [address] [id number] JACKELINE WILKS Self - patient is the insured
--- OUTSIDE RECORDS SUMMARY | 2025-02-27 15:11 | XMS_ITS | Encounter Summary ---
Author Organization [facility] Address [address] [place] [address] Care Team Providers Care Senior Editor Name Role Phone Hesham Pacheco MD Primary Care Provider +1- [phone] Encounter Details Date Type Department Care Team (Late st Contact Info) Description 03/17/2021 Scanned Document [facility] Surgical Oncology [address] [phone] Elda Mckee MD [address] [place] [address] [address] [place] [address] Social History Tobacco Use Types Packs/Day Years [...] on filedocumented in this encounter Care Teams Senior Editor Relationship Specialty Start Date End Date Hesham Pacheco MD [address] [place] [address] [place] [address] PCP - General Internal Medicine 03/11/21 documented as of this encounter
--- OUTSIDE RECORDS SUMMARY | 2025-02-27 15:11 | XMS_ITS | Clinical Summary ---
Author Organization [facility] Address [address] [place] [address] Care Team Providers Care Buck Swamper Name Role Phone Hesham Pacheco MD Primary Care Provider +1- [phone] Allergies Active Allergy Reactions Criticality Noted Date [...] change in size. Ultrasound: 02/27/2021 @ [facility] 3.9 x 1.3 x 1.2 cm right [...] topic Insurance MEDICARE PART A & B [facility] COMMERCIAL MEDICARE Care Teams Buck Swamper Relationship Specialty Start Date End Date Hesham Pacheco MD [address] [place] [address] [place] [address] PCP - General Internal Medicine 03/11/21
== END 2025-02-27 14:11 | disposition home or self-care (01) ==
LOC: HO.HMCH 12:13
PROVIDERS: PCP Internal Medicine; Visit Provider Internal Medicine
DX: Z01.818 Encounter for other preprocedural examination (principal); M16.11 Unilateral primary osteoarthritis, right hip; E78.00 Pure hypercholesterolemia, unspecified; E04.1 Nontoxic single thyroid nodule; R73.01 Impaired fasting glucose; K21.9 Gastro-esophageal reflux disease without esophagitis; M48.061 Spinal stenosis, lumbar region without neurogenic claudication; M17.0 Bilateral primary osteoarthritis of knee; J30.9 Allergic rhinitis, unspecified; F41.9 Anxiety disorder, unspecified; E66.3 Overweight

== ENCOUNTER → 2025-02-27 12:12 | Outpatient (BNVA) | payer MEDICARE, SELFPAY | PROVIDERS: PCP Internal Medicine; Visit Provider Internal Medicine | DX: Z01.818 Encounter for other preprocedural examination (principal); M16.11 Unilateral primary osteoarthritis, right hip; E78.00 Pure hypercholesterolemia, unspecified; E04.1 Nontoxic single thyroid nodule; R73.01 Impaired fasting glucose; K21.9 Gastro-esophageal reflux disease without esophagitis; M48.061 Spinal stenosis, lumbar region without neurogenic claudication; M17.0 Bilateral primary osteoarthritis of knee; J30.9 Allergic rhinitis, unspecified; F41.9 Anxiety disorder, unspecified; E66.3 Overweight; Z68.25 Body mass index [BMI] 25.0-25.9, adult | CPT/HCPCS: 99212 ==